=== PATIENT | female | born 1950 | race Caucasian/White ===

== ENCOUNTER → 2018-03-09 08:37 | Outpatient (CLI) | payer MEDICARE, SELFPAY ==
[2018-03-09 10:41] LABS: Hemoglobin A1c 7.8 % (4.2-6.3)
== END ==
PROVIDERS: Family Provider Internal Medicine; PCP Internal Medicine; Visit Provider Internal Medicine
DX: E11.65 Type 2 diabetes mellitus with hyperglycemia (principal)
CPT/HCPCS: 36415; 83036

== ENCOUNTER → 2018-06-12 08:41 | Outpatient (CLI) | payer MEDICARE, SELFPAY ==
[2018-06-12 11:16] LABS: Hemoglobin A1c 7.6 % (4.2-6.3)
[2018-06-12 11:31] LABS: AST(SGOT) 21 U/L (15-37); Alanine Aminotransfer ALT/SGPT 25 U/L (13-56); Albumin, Serum 3.7 g/dL (3.2-5.0); Alkaline Phosphatase 58 U/L (45-117); Bilirubin, Direct 0.11 mg/dL (0.00-0.30); Cholesterol 110 mg/dL (200); Globulin 4.2 g/dL (2.2-4.2); High Density Lipoprotein 42 mg/dL; Protein, Total 7.9 g/dL (6.4-8.2); Triglycerides 143 mg/dL; Very Low Density Lipoprotein 29 mg/dL (5-40)
== END ==
PROVIDERS: Family Provider Internal Medicine; PCP Internal Medicine; Visit Provider Nurse Practitioner Family
DX: E78.5 Hyperlipidemia, unspecified (principal); Z79.899 Other long term (current) drug therapy
CPT/HCPCS: 36415; 80061; 80076; 83036

== ENCOUNTER → 2018-11-22 13:33 | Outpatient (CLI) | payer OTHER, MEDICARE, SELFPAY ==
[2018-06-25 10:29] VITALS: BMI 35.6
--- NOTE | 2018-11-22 13:40 | RAD_ITS ---
STUDY: X-RAY - LEFT FOOT CLINICAL: Female, 68 years old. Pain and swelling TECHNIQUE: 3 view(s) of the foot. COMPARISON: None. FINDINGS: Normal talus and tarsal bones. Calcaneal spurs Normal visualized subtalar, talonavicular, calcaneocuboid, tarsal and tarsometatarsal articulations. Normal metatarsi. Normal metatarsophalangeal joint of the great toe. Normal tibial and fibular sesamoid bones. Normal interphalangeal joint of the great toe. Normal phalanges of the great toe. 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 Other joint spaces fairly well preserved. Normal interphalangeal joints and phalanges of the lesser toes. The soft tissue structures are unremarkable. 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
--- OUTSIDE RECORDS SUMMARY | 2019-01-27 08:15 | XMS RPT_ITS ---
:1950 Author Organization OHIP Care Team Providers Name Role Phone AIDEE GARCIARA Attending Unavailable GANTA, MARGARET Referring Unavailable GANTA, MARGARET Referring Unavailable GANTA, MARGARET Referring Unavailable GANTA, MARGARET Referring Unavailable PUNEET ARMANDO (ARLENE) Attending Unavailable GANTA, MARGARET Referring Unavailable GANTA, MARGARET Referring Unavailable GANTA, MARGARET Attending Unavailable Tarik Peterson Attending Unavailable Tarik Peterson Referring Unavailable Ganta, Margaret Primary Care Unavailable Ganta, Margaret Attending Unavailable Ganta, Margaret Referring Unavailable Ganta, Margaret Primary Care Unavailable Anna Lemons H Attending Unavailable Roof, Anna Dominguez Referring Unavailable [facility] Unavailable Puneet Armando Attending Unavailable Gan, Margaret Primary Care Unavailable Roof, Anna Dominguez Attending Unavailable Jaiden, Margaret Referring Unavailable [facility] Primary [facility] Unavailable PROBLEMS PROBLEMS DATE TYPE CONDITION / CODE ATTENDING STATUS SOURCE 08/20/2018 Active Type 2 diabetes NA Active [facility] mellitus with [facility] [place] hyperglycemia / Repository E11.65(ICD-10) 05/02/2018 Active Unknown / NA Active [facility] UNK(Unknown) [facility] [place] Repository 03/29/2018 Active Encounter for NA Active [facility] screening mammogram [facility] [place] for malignant Repository neoplasm of breast / Z12.31(ICD-10) PROCEDURES PROCEDURES No Procedure Records FoundRESULTS RESULTS FOOT MIN 3 VIEWS Observed: 11/22/2018 Status: F Source: [place] 1:40 PM [facility] [place] [facility] Imaging Services [address] [place] [address] Foot min 3 Views MR#: [id number] Acct: [id number] Name: ZARINA LEBRON Rep #: [id number] : 1950 F 68 From: Brandyn Davenport MD PCP: Margaret Garcia MD Status: REG CLI Study: Foot min 3 Views Date of Exam: 11/22/18 Exam# [id number] Ordering Dr: Onur Peterson MD STUDY: X-RAY - LEFT FOOT CLINICAL: Female, 68 years old. Pain and swelling TECHNIQUE: 3 view(s) of the foot. COMPARISON: None. FINDINGS: Normal talus and tarsal bones. Calcaneal spurs Normal visualized subtalar, talonavicular, calcaneocuboid, tarsal and tarsometatarsal articulations. Normal metatarsi. Normal metatarsophalangeal joint of the great toe. Normal tibial and fibular sesamoid bones. Normal interphalangeal joint of the great toe. Normal phalanges of the great toe. 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 Other joint spaces fairly well preserved. Normal interphalangeal joints and phalanges of the lesser toes. The soft tissue structures are unremarkable. 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 CC: Margaret Garcia MD; Tarik Peterson MD Gum Mixer: Signed PROGRESS Observed: 09/14/2018 Status: COMPLETED Source: [place] 10:30 AM [facility] [place] REPOSITORY O ID: [id number] Author: Margaret Garcia Service: (none) Author Type: Physician Type: Progress Notes Filed: 09/14/2018 1:09 PM Note Text: Reason for Visit Patient presents with: Established Patient: 3 month follow up-diabetes Zarina Lebron is a 68 year old female who presents here today for Above Complaints.. Health Maintenance PAP EVERY 3 YEARS (65-80 YEARS OLD) SERUM CREATININE URINE ALBUMIN:CREATININE RATIO LDL CHOLESTEROL HPI DIABETES MELLITUS: Ms. Lebron was last seen on. Since our last visit she denies excessive thirst or increased frequency of urination, chest pain or dyspnea , numbness, tingling or pain in extremities, new or unusual visual symptoms, low sugar/hypoglycemic reactions, weight loss/gain, lightheadedness/dizziness, bowel changes/loose stools and... No symptoms of low sugars Follows a diabetic diet most of the time. She is compliant with medication(s) and is tolerating med(s) without any side effects. She is not checking her glucose...Patient's last HgA1C was Hemoglobin A1C (%) Date Value 08/20/2018 7.6 03/09/2018 7.8 09/08/2017 Test sent to [facility]. ) She is up to date with the eye exam HTN: Ms. Lebron indicates that she is feeling well and denies any symptoms referable to elevated blood pressure. Specifically denies headache, chest pain, palpitations, dyspnea and peripheral edema. Patient denies any side effects of her medication(s) and is compliant with their regimen. She watches her diet for sodium, low fat and low cholesterol most of the time. Last 3 Encounter BP Readings: Date: BP: 09/14/2018 124/60 06/15/2018 128/70 03/14/2018 138/56 Lipids are normal, reviewed test results with patient Who takes medications regularly and has no side effects. Has some micro albuminemia but is already on the cozaar, to continue the same. She has not gained any weight , is exercising some bit. No problem-specific Assessment AND Plan notes found for this encounter. PAST MEDICAL HISTORY Diagnosis Date - Anemia, unspecified - Carpal tunnel syndrome 07/02/2009 - Diverticulosis of colon (without mention of hemorrhage) - Hypertension - Inferior CO (HCC) 08/01/2010 01/13/[address] Ruddy Dejesus- routine f/u's and reconsideration of bypass. - Internal hemorrhoids without mention of complication - Localized osteoarthrosis not specified whether primary or secondary, unspecified site - Myocardial infarction (HCC) 09/19/2009 per patient - Polyneuropathy in diabetes(357.2) - Trigger finger 07/17/2009 - Type II or unspecified type diabetes mellitus without mention of complication, not stated as uncontrolled - Vitamin D deficiency 12/28/2011 PAST SURGICAL HISTORY Procedure Laterality Date - APPENDECTOMY - COLONOSCOP W/ OR W/O [facility] SPEC 09/26/05 Colonoscopy - COLONOSCOP W/ OR W/O [facility] SPEC 11/23/2015 Colonoscopy - HAND LEFT OP SURGERY 07/02/2009 - LIGATE FALLOPIAN TUBE Tubal ligation - PAST SURGICAL HISTORY OF 08/2006 laser surgery left eye - REMOVAL GALLBLADDER FAMILY HISTORY Problem Relation Age of Onset - Cancer Father lung cancer - other (glaucoma) Brother - Diabetes Brother Social History Substance Use Topics - Smoking status: Never Smoker - Smokeless tobacco: Never Used - Alcohol use 1.0 oz/week Comment: rarely Past medical history, appointments, medications, allergies reviewed. Pertinent Lab/Diagnostic Studies are reviewed and discussed today Current Outpatient Prescriptions: - atorvastatin (LIPITOR) 40 mg tablet - glimepiride (AMARYL) 4 mg tablet - metoprolol tartrate, short acting, (LOPRESSOR) 50 mg tablet - metFORMIN (GLUCOPHAGE) 500 mg tablet - Lancets (ACCU-CHEK MULTICLIX LANCET) lancets - nitroglycerin sublingual (NITROQUICK) 0.4 mg SL tablet - oxybutynin ER (DITROPAN XL) 10 mg 24 hr tablet - dulaglutide (TRULICITY) 0.75 mg/0.5 mL pnij - clopidogrel (PLAVIX) 75 mg tablet - losartan (COZAAR) 25 mg tablet - acetaminophen (TYLENOL) 325 mg tablet - Lysine 500 mg tab - biotin 5 mg tab - Lactobacillus acidophilus (BACID) cap - magnesium oxide (MAG-OX) 400 mg tablet - Insulin Severy, Disposable, (BD ULTRA-FINE ANTONINO PEN NEEDLES) 32 gauge x 5/32 ndle - aspirin, enteric coated (ASPIRIN, ENTERIC COATED) 81 mg EC tablet - Eudgzmrwznm-Odzbrwdto-Xnk C-Mn (GLUCOSAMINE-CHONDROITIN COMPLX) cap - vitamin b complex (B COMPLETE) Tab - blood sugar diagnostic (ACCU-CHEK FRANCISCO J) Misc test strip - OMEGA-3 FATTY ACIDS CAP - COENZYME Q10 200 MG CAP - THERAPEUTIC MULTIVITAMIN ORAL TAB - VITAMIN C 500 MG ORAL TAB Review of Systems CONSTITUTIONAL: No fevers, chills night sweats, unintended weight loss CARDIOVASCULAR: No chest pain, dyspnea, palpitations, orthopnea, PND, ankle edema. PULM: No dyspnea, unexplained cough. GI: No dysphagia/odynophagia, problematic reflux, constipation, diarrhea, changes in stool habits, hematochezia, melena. : No new urinary complaints, including dysuria, gross hematuria or pyuria. NEURO: No new balance problems, peripheral weakness/paresthesias or numbness of concern. Physical Exam BP 124/60 (BP Site: Left Arm, BP Position: Sitting, BP Cuff Size: Large Adult) Pulse (!) 53 Resp 14 Ht 144.8 cm (4' 9) Wt 76.2 kg (168 lb) SpO2 100% BMI 36.35 kg/m? General appearance: Well appearing, alert, in no acute distress, well nourished. Skin: Skin color, texture, turgor normal, no suspicious rashes or lesions Head: Normocephalic, no masses, lesions, tenderness or abnormalities Eyes: Anicteric sclera. Pupils are equally round and reactive to light. Extraocular movements are intact. Lungs: Lungs clear to auscultation. No wheezing, rhonchi, rales Heart: RRR without murmur, gallop, or rubs. Extremities: No deformities, edema, skin discoloration, clubbing or cyanosis. Good capillary refill. ASSESSMENT/PLAN: 1. Diabetes mellitus type 2, uncontrolled, without complications ([facility]) - ICD9: 250.02, ICD10: E11.65 (primary diagnosis) Controlled. - Continue current medications - LANCETS - EMPAGLIFLOZIN 10 MG TABLET 2. Pure hypercholesterolemia - ICD9: 272.0, ICD10: E78.00 - good control - Continue current medication. 3. Coronary artery disease involving telida coronary artery of telida heart without angina pectoris - ICD9: 414.01, ICD10: I25.10 Stable no chest pain or sob 4. CKD (chronic kidney disease) stage 3, GFR 30-59 ml/min ([facility]) - ICD9: 585.3, ICD10: N18.3 - ALBUMIN/CREAT RATIO RND UR MARGARET GARCIA MD CNOV Observed: 09/14/2018 Status: COMPLETED Source: [place] 9:40 AM [facility] REPOSITORY Office Visit (INTMWS) ZARINA LEBRON ([id number]) 1950 F Date Time Provider Department 09/14/18 9:40 AM MARGARET GARCIA IN[facility] During your visit today, we recorded the following information about you: Pulse Respiration Blood pressure Weight 53/minute 14/minute 124/60 76.2 kg Height 1.448 m MARGARET GARCIA MD 09/14/2018 1:09 PM Signed Reason for Visit Patient presents with: Established Patient: 3 month follow up-diabetes Zarina Lebron is a 68 year old female who presents here today for Above Complaints.. Health Maintenance PAP EVERY 3 YEARS (65-80 YEARS OLD) SERUM CREATININE URINE ALBUMIN:CREATININE RATIO LDL CHOLESTEROL HPI DIABETES MELLITUS: Ms. Lebron was last seen on. Since our last visit she denies excessive thirst or increased frequency of urination, chest pain or dyspnea , numbness, tingling or pain in extremities, new or unusual visual symptoms, low sugar/hypoglycemic reactions, weight loss/gain, lightheadedness/dizziness, bowel changes/loose stools and... No symptoms of low sugars Follows a diabetic diet most of the time. She is compliant with medication(s) and is tolerating med(s) without any side effects. She is not checking her glucose...Patient's last HgA1C was Hemoglobin A1C (%) Date Value 08/20/2018 7.6 03/09/2018 7.8 09/08/2017 Test sent to [facility]. ) She is up to date with the eye exam HTN: Ms. Lebron indicates that she is feeling well and denies any symptoms referable to elevated blood pressure. Specifically denies headache, chest pain, palpitations, dyspnea and peripheral edema. Patient denies any side effects of her medication(s) and is compliant with their regimen. She watches her diet for sodium, low fat and low cholesterol most of the time. Last 3 Encounter BP Readings: Date: BP: 09/14/2018 124/60 06/15/2018 128/70 03/14/2018 138/56 Lipids are normal, reviewed test results with patient Who takes medications regularly and has no side effects. Has some micro albuminemia but is already on the cozaar, to continue the same. She has not gained any weight , is exercising some bit. No problem-specific Assessment AND Plan notes found for this encounter. PAST MEDICAL HISTORY Diagnosis Date - Anemia, unspecified - Carpal tunnel syndrome 07/02/2009 - Diverticulosis of colon (without mention of hemorrhage) - Hypertension - Inferior CO (HCC) 08/01/2010 01/13/[address] Ruddy Dejesus- routine f/u's and reconsideration of bypass. - Internal hemorrhoids without mention of complication - Localized osteoarthrosis not specified whether primary or secondary, unspecified site - Myocardial infarction (HCC) 09/19/2009 per patient - Polyneuropathy in diabetes(357.2) - Trigger finger 07/17/2009 - Type II or unspecified type diabetes mellitus without mention of complication, not stated as uncontrolled - Vitamin D deficiency 12/28/2011 PAST SURGICAL HISTORY Procedure Laterality Date - APPENDECTOMY - COLONOSCOP W/ OR W/O [facility] SPEC 09/26/05 Colonoscopy - COLONOSCOP W/ OR W/O [facility] SPEC 11/23/2015 Colonoscopy - HAND LEFT OP SURGERY 07/02/2009 - LIGATE FALLOPIAN TUBE Tubal ligation - PAST SURGICAL HISTORY OF 08/2006 laser surgery left eye - REMOVAL GALLBLADDER FAMILY HISTORY Problem Relation Age of Onset - Cancer Father lung cancer - other (glaucoma) Brother - Diabetes Brother Social History Substance Use Topics - Smoking status: Never Smoker - Smokeless tobacco: Never Used - Alcohol use 1.0 oz/week Comment: rarely Past medical history, appointments, medications, allergies reviewed. Pertinent Lab/Diagnostic Studies are reviewed and discussed today Current Outpatient Prescriptions: - atorvastatin (LIPITOR) 40 mg tablet - glimepiride (AMARYL) 4 mg tablet - metoprolol tartrate, short acting, (LOPRESSOR) 50 mg tablet - metFORMIN (GLUCOPHAGE) 500 mg tablet - Lancets (ACCU-CHEK MULTICLIX LANCET) lancets - nitroglycerin sublingual (NITROQUICK) 0.4 mg SL tablet - oxybutynin ER (DITROPAN XL) 10 mg 24 hr tablet - dulaglutide (TRULICITY) 0.75 mg/0.5 mL pnij - clopidogrel (PLAVIX) 75 mg tablet - losartan (COZAAR) 25 mg tablet - acetaminophen (TYLENOL) 325 mg tablet - Lysine 500 mg tab - biotin 5 mg tab - Lactobacillus acidophilus (BACID) cap - magnesium oxide (MAG-OX) 400 mg tablet - Insulin Severy, Disposable, (BD ULTRA-FINE ANTONINO PEN NEEDLES) 32 gauge x 5/32 ndle - aspirin, enteric coated (ASPIRIN, ENTERIC COATED) 81 mg EC tablet - Lbowsemjasw-Hmbcppkud-Jts C-Mn (GLUCOSAMINE-CHONDROITIN COMPLX) cap - vitamin b complex (B COMPLETE) Tab - blood sugar diagnostic (ACCU-CHEK FRANCISCO J) Misc test strip - OMEGA-3 FATTY ACIDS CAP - COENZYME Q10 200 MG CAP - THERAPEUTIC MULTIVITAMIN ORAL TAB - VITAMIN C 500 MG ORAL TAB Review of Systems CONSTITUTIONAL: No fevers, chills night sweats, unintended weight loss CARDIOVASCULAR: No chest pain, dyspnea, palpitations, orthopnea, PND, ankle edema. PULM: No dyspnea, unexplained cough. GI: No dysphagia/odynophagia, problematic reflux, constipation, diarrhea, changes in stool habits, hematochezia, melena. : No new urinary complaints, including dysuria, gross hematuria or pyuria. NEURO: No new balance problems, peripheral weakness/paresthesias or numbness of concern. Physical Exam BP 124/60 (BP Site: Left Arm, BP Position: Sitting, BP Cuff Size: Large Adult) Pulse (!) 53 Resp 14 Ht 144.8 cm (4' 9) Wt 76.2 kg (168 lb) SpO2 100% BMI 36.35 kg/m? General appearance: Well appearing, alert, in no acute distress, well nourished. Skin: Skin color, texture, turgor normal, no suspicious rashes or lesions Head: Normocephalic, no masses, lesions, tenderness or abnormalities Eyes: Anicteric sclera. Pupils are equally round and reactive to light. Extraocular movements are intact. Lungs: Lungs clear to auscultation. No wheezing, rhonchi, rales Heart: RRR without murmur, gallop, or rubs. Extremities: No deformities, edema, skin discoloration, clubbing or cyanosis. Good capillary refill. ASSESSMENT/PLAN: 1. Diabetes mellitus type 2, uncontrolled, without complications ([facility]) - ICD9: 250.02, ICD10: E11.65 (primary diagnosis) Controlled. - Continue current medications - LANCETS - EMPAGLIFLOZIN 10 MG TABLET 2. Pure hypercholesterolemia - ICD9: 272.0, ICD10: E78.00 - good control - Continue current medication. 3. Coronary artery disease involving telida coronary artery of telida heart without angina pectoris - ICD9: 414.01, ICD10: I25.10 Stable no chest pain or sob 4. CKD (chronic kidney disease) stage 3, GFR 30-59 ml/min ([facility]) - ICD9: 585.3, ICD10: N18.3 - ALBUMIN/CREAT RATIO RND UR MARGARET GARCIA MD Referring Provider: SELF [200] Allergies As of Date: 09/14/2018 Noted Allergy Reaction QUININE SULFATE 07/08/2005 5 - Intolerance Comments: thrombocytopenia CIPRO (CIPROFLOXACIN) 07/08/2005 5 - Intolerance Comments: swelling EVISTA (RALOXIFENE HCL) 04/15/2008 5 - Intolerance Comments: leg cramps LISINOPRIL 11/04/2009 3 - Cough ALTACE (RAMIPRIL) 07/08/2005 3 - Cough Date Reviewed: 09/14/2018 Reviewed by: Nina Rojas LPN - Fully Assessed Reason for Visit: Established Patient [175] Cmt: 3 month follow up-diabetes Primary Visit Diagnosis:Diabetes mellitus type 2, uncontrolled, without complications (HCC) [E11.65] Other Visit Diagnoses:Pure hypercholesterolemia [E78.00] Coronary artery disease involving telida coronary artery of telida heart without angina pectoris [I25.10] CKD (chronic kidney disease) stage 3, GFR 30-59 ml/min (HCC) [N18.3] Order(s):Lancets (ACCU-CHEK MULTICLIX LANCET) lancetsTest blood sugar once daily.Disp: 50 EachRfl: 11 empagliflozin (JARDIANCE) 10 mg tabletTake 1 tablet by mouth daily with breakfast.Disp: 30 tabletRfl: 2 ALBUMIN/CREAT RATIO RND UR [SQUACR] Order #: [id number] FUTURE HGB A1C [QEIWS5F] Order #: [id number] FUTURE Prescriptions as of 09/14/2018 Sig: LANCETS Test blood sugar once daily. EMPAGLIFLOZIN 10 MG TABLET Take 1 tablet by mouth daily * ATORVASTATIN 40 MG TABLET TAKE 1 TABLET EVERY DAY GLIMEPIRIDE 4 MG TABLET TAKE 1 AND 1/2 TABLETS EVERY * METOPROLOL TARTRATE 50 MG TAB* TAKE 1 TABLET TWICE DAILY METFORMIN 500 MG TABLET TAKE 2 TABLETS TWICE DAILY NITROGLYCERIN 0.4 MG SUBLINGU* Dissolve 1 tablet under the t* OXYBUTYNIN CHLORIDE ER 10 MG * TAKE 1 TABLET EVERY DAY CLOPIDOGREL 75 MG TABLET Take 1 tablet by mouth once d* LOSARTAN 25 MG TABLET Take 1 tablet by mouth once d* ACETAMINOPHEN 325 MG TABLET Take 2 tablets by mouth every* LYSINE 500 MG TABLET Take 1 tablet by mouth once d* BIOTIN 5 MG TABLET Take 1 tablet by mouth once d* LACTOBACILLUS ACIDOPHILUS CAP* Take 2 capsules by mouth once* MAGNESIUM OXIDE 400 MG (241.3* Take 1 tablet by mouth once d* PEN NEEDLE, DIABETIC 32 GAUGE* Use once daily with Victoza ASPIRIN 81 MG TABLET,DELAYED * Take 81 mg by mouth once zuhair* CNFRBNUXMML-GHJRLKRBK-BUY C-M* Take by mouth. * VITAMIN B COMPLEX TABLET Take 1 tablet by mouth once d* * BLOOD SUGAR DIAGNOSTIC STRIPS TEST BLOOD SUGARS ONCE DAILY * OMEGA-3 FATTY ACIDS CAPSULE Take one(1) tablet one (1) ti* * COENZYME Q10 200 MG CAPSULE Take one(1) tablet daily. * THERAPEUTIC MULTIVITAMIN TABL* Take one(1) tablet daily. * VITAMIN C 500 MG TABLET Take one(1) tablet daily. Medication notes this encounter DULAGLUTIDE 0.75 MG/0.5 ML SUBCUTANEOUS PEN INJECTOR >> Nina Rojas LPN 09/14/2018 10:03 AM >> NINA ROJAS LPN MonSep 14, 2018 10:03 AM not taking too expensive Problem List As Of Date 09/14/2018 Noted Resolved Diabetic polyneuropathy (HCC) [E11.42] LOC [place] NOS-UNSPEC [M19.90] Diabetes mellitus type 2, uncontrolled, without*INVALID FOR* More... Dupuytren's Disease [M72.0] INVALID FOR* CAD (Coronary Artery Disease) [I25.10] INVALID FOR* More... Pure Hypercholesterolemia [E78.00] INVALID FOR* Hypertension [I10] INVALID FOR* More... More... More... Non-proliferative diabetic retinopathy, mild, b*INVALID FOR* More... Osteopenia [M85.80] INVALID FOR* More... Diabetes mellitus with neuropathy (HCC) [E11.40]INVALID FOR*06/11/2014 CKD (chronic kidney disease) stage 3, GFR 30-59*INVALID FOR* More... PVD (peripheral vascular disease) ([facility]) [I73.9] INVALID FOR* Prescriptions ordered this encounter Disp Refills Start End LANCETS 50 E* 11 09/14/2018 Sig: Test blood sugar once daily. EMPAGLIFLOZIN 10 MG TABLET 30 t* 2 09/14/2018 Route: ORAL Sig: Take 1 tablet by mouth daily with breakfast. Medications Discontinued During This Encounter dulaglutide (TRULICITY) 0.75 mg/0.5 * 4 Pen 0 03/14/2018 09/14/2018 Route: SUBCUTANEOUS Sig: Inject 1 Dose subcutaneously once each week. Inject dose once per week. Discard Pen After Disc: Reason for discontinue is not on file. Lancets (ACCU-CHEK MULTICLIX LANCET)* 50 E* 11 06/15/2018 09/14/2018 Class: [employer] Sig: Test blood sugar once daily. Disc: Reason for discontinue is not on file. Encounter Status:Closed by MARGARET GARCIA MD on 09/14/18 ARLENETOUTREACH Observed: 08/28/2018 Status: COMPLETED Source: [place] 12:00 AM [facility] REPOSITORY Patient Outreach (INTMWH) ZARINA LEBRON ([id number]) 1950 F Date Time Provider Department 08/28/18 [facility]ARCIA [facility] During your visit today, we recorded the following information about you: Allergies As of Date: 08/28/2018 Noted Allergy Reaction QUININE SULFATE 07/08/2005 5 - Intolerance Comments: thrombocytopenia CIPRO (CIPROFLOXACIN) 07/08/2005 5 - Intolerance Comments: swelling EVISTA (RALOXIFENE HCL) 04/15/2008 5 - Intolerance Comments: leg cramps LISINOPRIL 11/04/2009 3 - Cough ALTACE (RAMIPRIL) 07/08/2005 3 - Cough Date Reviewed: 06/15/2018 Reviewed by: Precious Oquendo Ma - Fully Assessed Visit Diagnosis:Medication management [Z79.899] Order(s):BASIC METABOLIC PNL [SQBMP] Order #: [id number] FUTURE ALBUMIN/CREAT RATIO RND UR [SQUACR] Order #: [id number] FUTURE LIPID PANEL BASIC [SQLIPB] Order #: [id number] FUTURE Prescriptions as of 08/28/2018 Sig: ATORVASTATIN 40 MG TABLET TAKE 1 TABLET EVERY DAY GLIMEPIRIDE 4 MG TABLET TAKE 1 AND 1/2 TABLETS EVERY * METOPROLOL TARTRATE 50 MG TAB* TAKE 1 TABLET TWICE DAILY METFORMIN 500 MG TABLET TAKE 2 TABLETS TWICE DAILY NITROGLYCERIN 0.4 MG SUBLINGU* Dissolve 1 tablet under the t* X LANCETS Test blood sugar once daily. OXYBUTYNIN CHLORIDE ER 10 MG * TAKE 1 TABLET EVERY DAY X DULAGLUTIDE 0.75 MG/0.5 ML CHURCHILL* Inject 1 Dose subcutaneously * CLOPIDOGREL 75 MG TABLET Take 1 tablet by mouth once d* LOSARTAN 25 MG TABLET Take 1 tablet by mouth once d* ACETAMINOPHEN 325 MG TABLET Take 2 tablets by mouth every* LYSINE 500 MG TABLET Take 1 tablet by mouth once d* BIOTIN 5 MG TABLET Take 1 tablet by mouth once d* LACTOBACILLUS ACIDOPHILUS CAP* Take 2 capsules by mouth once* MAGNESIUM OXIDE 400 MG (241.3* Take 1 tablet by mouth once d* PEN NEEDLE, DIABETIC 32 GAUGE* Use once daily with Victoza ASPIRIN 81 MG TABLET,DELAYED * Take 81 mg by mouth once zuhair* [id number]-QDQYRWLTM-DYN C-M* Take by mouth. * VITAMIN B COMPLEX TABLET Take 1 tablet by mouth once d* * BLOOD SUGAR DIAGNOSTIC STRIPS TEST BLOOD SUGARS ONCE DAILY * OMEGA-3 FATTY ACIDS CAPSULE Take one(1) tablet one (1) ti* * COENZYME Q10 200 MG CAPSULE Take one(1) tablet daily. * THERAPEUTIC MULTIVITAMIN TABL* Take one(1) tablet daily. * VITAMIN C 500 MG TABLET Take one(1) tablet daily. Problem List As Of Date 08/28/2018 Noted Resolved Diabetic polyneuropathy (HCC) [E11.42] LOC OSTEOARTH NOS-UNSPEC [M19.90] Diabetes mellitus type 2, uncontrolled, without*INVALID FOR* More... Dupuytren's Disease [M72.0] INVALID FOR* CAD (Coronary Artery Disease) [I25.10] INVALID FOR* More... Pure Hypercholesterolemia [E78.00] INVALID FOR* Hypertension [I10] INVALID FOR* More... More... More... Non-proliferative diabetic retinopathy, mild, b*INVALID FOR* More... Osteopenia [M85.80] INVALID FOR* More... Diabetes mellitus with neuropathy (HCC) [E11.40]INVALID FOR*06/11/2014 CKD (chronic kidney disease) stage 3, GFR 30-59*INVALID FOR* More... PVD (peripheral vascular disease) ([facility]) [I73.9] INVALID FOR* Encounter Status:Closed by PRECIOUS LUGO on 09/28/18 HEMOGLOBIN A1C Collected: 08/20/2018 Status: F Source: [place] 9:07 AM [facility] RE[facility] TYPE CODE TESTS RESULT OUT OF REFERENCE UNITS RANGE LAB HGBA1C 4.3-5.6 % High Hemoglobin A1c 7.6 LAB HBA0 mg/dL Est. Average Glucose 171 Result Comment: eAG: (Estimated average glucose) is a calculated value from HgbA1c and is sales representative public utilities of the average blood glucose level in the last 2-3 month period. Performed By: #### HBA1C #### [facility] [address] [place], [place] [address] CARDIOLOGY VISIT Observed: 06/26/2018 Status: F Source: [place] REPORT 5:32 PM [facility] [place] [address] [place] [address] OFFICE VISIT Date of Service: 06/25/18 MR#: [id number] Acct: [id number] Name: ZARINA LEBRON Rep #: [id number] : 1950 Provider: ALO Lemons Age/Sex: 68/F Location: [facility] Status: Signed HPI HPI Details: ZARINA LEBRON, is a 68 F who presents to the office today for a cardiovascular outpatient follow-up. She has a history of coronary artery disease with a normal left main originating from the RCA, status post PCI of RCA 2 in September 2009 and mid RCA in February 2011, hypertension and hyperlipidemia. Pt. denies chest, arm, jaw, or neck discomfort. She states prior to PCI she had upper back pain between shoulder blades and SOB. Her exercise tolerance is stable via APX 3-5 days a week. Pt. denies symptoms of CHF, palpitations, lightheadedness, dizziness, near syncope, or syncopal episodes. Pt. denies edema or claudication issues. Pt. denies orthopnea, PND, fever, chills, blood in urine, blood in stool, myalgia, or unexplainable fatigue. She states sleeping in a recliner d/t muscle cramps and back pain. She states suffering a fall in September 2017 after being tripped by her granddaughter. She underwent a x-ray of her chest that was negative. Her pain slowly resolved. Intake Vital Signs06/25/18 Height 4 ft 9 in 06/25/18 Weight: 165 lb 06/25/18 Body Mass Index (BMI) 35.6 06/25/18 Blood Pressure 132/60 06/25/18 Blood Pressure Location Lt brachial Intake Visit Reasons: 6 M FU Vocational Nurse Required: No Accompanied by: none Is patient in pain?: No Allergies ciprofloxacin [From Cipro] Allergy (Verified 06/25/18 10:30) Swelling ciprofloxacin HCl [From Cipro] Allergy (Verified 06/25/18 10:30) Swelling ramipril [From Altace] Adverse Reaction (Verified 06/25/18 10:30) Other Medications Atorvastatin Calcium [Lipitor] 40 mg PO QHS 07/12/15 [History Confirmed 06/25/18] Clopidogrel Bisulfate [Plavix] 75 mg PO DAILY 07/12/15 [History Confirmed 06/25/18] Glimepiride [Amaryl] 4 mg PO DAILY 07/12/15 [History Confirmed 06/25/18] Metformin HCl [Glucophage] 1,000 mg PO BIDCM 07/12/15 [History Confirmed 06/25/18] Metoprolol Tartrate [Lopressor (Beta Eleni)] 50 mg PO BID 07/12/15 [History Confirmed 06/25/18] aspirin 81 mg tablet,delayed release 81 mg PO QDAY 06/25/18 [History Confirmed 06/25/18] coenzyme Q10 200 mg capsule 200 mg PO QDAY 06/25/18 [History Confirmed 06/25/18] losartan 25 mg tablet 25 mg PO QDAY 06/25/18 [History Confirmed 06/25/18] nitroglycerin 0.4 mg sublingual tablet 0.4 mg SUBLINGUAL Q5- 15M PRN #25 tab 06/25/18 [Rx Confirmed 06/25/18] omega-3 fatty acids 1,000 mg capsule 1,000 mg PO QDAY 06/25/18 [History Confirmed 06/25/18] oxybutynin chloride ER 10 mg tablet,extended release 24 hr 10 mg PO QDAY 06/25/18 [History Confirmed 06/25/18] vitamin B complex tablet 1 tab PO QDAY 06/25/18 [History Confirmed 06/25/18] PFSH Social History Smoking Status: Never smoker ROS Const Const: Negative for fatigue, weakness, body ache, fever(s) or chills ENT ENT: Negative for dizziness Cardio Chest Pain: No Palpitations: No Edema: None Muscle aches with walking: None Resp Respiratory: Negative for SOB with activity, SOB at rest, SOB orthopnea\SOB lying down or paroxysmal nocturnal dyspnea GI GI: Negative nausea, black,tarry stools, bright, red blood in stools or vomiting blood/hematemesis : Negative for hematuria or frequent nighttime urination/ nocturia Musc Musc: Negative for muscle aches/ myalgia Skin Skin: Negative non-healing lesions or rash Neuro Neuro: Negative for weakness, dizziness, lightheadedness, near syncope, syncope or orthostatic symptoms Endo Endo: Negative for fatigue Allergy Allergy/Immunology: Negative for rash Cardiology Exam Const Appearance: cooperative, healthy appearing, comfortable and no acute distress Nutritional Appearance: well nourished and obese Orientation: alert, awake and oriented x3 Head Head: normal to inspection Ears: hearing grossly normal bilaterally Nose: external nose normal Face and Sinus: face symmetric Mouth: oral mucosae normal Eyes General: appearance normal, both eyes and all related structures Eyelids: eyelids normal EOM: EOM intact bilaterally Neck Neck: no JVD and normal visual inspection Carotids: normal carotid upstroke Chest Chest inspection: normal inspection of the chest and normal respiratory effort; negative cough Auscultation: Bilateral: Clear to Auscultation Cardio Rate: regular rate Rhythm: regular rhythm Heart sounds: S1 normal and S2 normal; negative rub, gallop or murmur GI GI: normal to inspection and obese Neuro General: alert, awake, oriented x3 and CN's II-XI intact bilaterally Skin Skin: no rashes or lesions noted Extremities Pulses: Normal: Right Posterior Tibial Pulse, Left Posterior Tibial Pulse, Right Radial Pulse, Left Radial Pulse Lower Extremity Edema: None: Bilateral Psych Psychological: normal affect Supplemental Info Echocardiogram from December 2015 showed normal LV size, estimated ejection fraction of 65%, diastolic dysfunction, and mild focal aortic valve calcification. Stress test from November 2013 was a normal pharmacologic myocardial perfusion stress test with a preserved ejection fraction of 75%. Assessment AND Plan 1. Atherosclerosis of telida coronary artery of telida heart without angina pectoris I25.10 S/P PCI to the RCA x2 in September 2009 and mid RCA in February 2011 Plan - MARY Beckett Her echocardiogram in December 2015 showed ejection fraction of 65%. Her stress test in April 2014 was a normal pharmacological myocardial perfusion stress test with a preserved ejection fraction. Patient denies any chest pain, arm pain, jaw pain, neck pain, shortness of breath, or fatigue suggestive of angina at this time. We will continue to monitor this. We will not make any medication regimen changes and will continue risk factor modification. 2. Essential hypertension I10 Plan - MARY Beckett Patient's blood pressure is well-controlled today in the office. We will continue to monitor this. We will not make any medication regimen changes. 3. Pure hypercholesterolemia E78.00; E78.0 Plan - MARY Beckett Lipid panel from June 2018 showed cholesterol: 110, HDL: 42, LDL: 39, and triglycerides: 143. She will continue the current statin medication and we will continue to monitor. Plan Detail Other Medications New: nitroglycerin until response; do not exceed 3 0.4 mg Sublingual Q5-15M PRN chest pain doses per episode Discontinued: sulfamethoxazole-trimethoprim 800-160 mg Discontinued Reason: Pt no long1 tab PO BID er taking Additional Comments - MARY Beckett Discussed the above patient with Dr. Cagle, he agrees with the plan of care. Thank you for allowing us to participate in the patients plan of care, if you have any questions please do not hesitate to call. This note was generated using a voice recognition system and there may be incorrect words, spelling or punctuation that were not noted when reviewing the office note prior to saving. 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) Coding Level of Care Code Off vis,est,level 3 Diagnoses Atherosclerosis of telida coronary artery of telida heart without angina pectoris I25.10 Essential hypertension I10 Hypertension type: essential hypertension Pure hypercholesterolemia E78.00; E78.0 Hyperlipidemia type: pure hypercholesterolemia Coding Level of Care Code Off vis,est,level 3 Diagnoses Atherosclerosis of telida coronary artery of telida heart without angina pectoris I25.10 Essential hypertension I10 Hypertension type: essential hypertension Pure hypercholesterolemia E78.00; E78.0 Hyperlipidemia type: pure hypercholesterolemia 06/26/18 0751 <Electronically signed by Anna HERNANDEZ> Date Anna HERNANDEZ 06/26/18 1732<Electronically signed by Tarik Cagle MD> Cosigner Signature: Date (if applicable) Tarik Cagle MD CC: Margaret Garcia MD PROGRESS Observed: 06/15/2018 Status: COMPLETED Source: [place] 10:04 AM [facility] [place] REPOSITORY [facility] ID: [id number] Author: Puneet Armando Service: (none) Author Type: Nurse Practitioner Type: Progress Notes Filed: 06/15/2018 12:45 PM Note Text: CC: Patient presents with: Recheck: 3 month diabetes follow up HPI Zarina eLbron is a 68 year old female who presents today for 3 month follow up diabetes. DIABETES MELLITUS: Ms. Lebron was last seen 3 months ago. Since our last visit she denies excessive thirst or increased frequency of urination, chest pain or dyspnea , numbness, tingling or pain in extremities, new or unusual visual symptoms, low sugar/hypoglycemic reactions, lightheadedness/dizziness and bowel changes/loose stools. Follows a diabetic diet most of the time. She is compliant with medication(s) however she has not started her Trulicity d/t cost. She reports monthly cost of $340/month. She reports checking her glucose on a infrequent to not at all basis schedule, as she never received lancets that were previously ordered. Down 5-6lbs since last visit and HgbA1C is improving. Patient's last HgA1C was Hemoglobin A1C (%) Date Value 03/09/2018 7.8 09/08/2017 Test sent to [facility]. 06/08/2017 7.7 05/17/2016 7.8 ) Last Ophthalmology exam was within the past 12 months. Upcoming appt in August HTN: Ms. Lebron indicates that she is feeling well and denies any symptoms referable to elevated blood pressure. Specifically denies headache, chest pain, palpitations, dyspnea and peripheral edema. Patient denies any side effects of her medication(s) and is compliant with their regimen. She does not check BP's generally. Zarina works out regularly 3-5x times per week with walking on treadmill, light weights and goes to [employer]. She watches her diet for sodium, low fat and low cholesterol most of the time. Last 3 Encounter BP Readings: Date: BP: 06/15/2018 128/70 03/14/2018 138/56 10/04/2017 131/78 Hyperlipidemia. Ms. Lebron reports doing well on current therapy of atorvastatin (Lipitor) 40 mg. Reports side effect(s) of leg cramps intermittently. On Co-Q 10 already and uses heating pads for relief. Her most recent lipid panels are: Cholesterol, Total (mg/dL) Date Value 09/08/2017 Test sent to [facility]. 06/19/2013 146 Cholesterol,Total (mg/dL) Date Value 09/08/2017 113 HDL Cholesterol (mg/dL) Date Value 09/08/2017 Test sent to [facility]. 06/19/2013 39 LDL Cholesterol Date Value 09/08/2017 Test sent to [facility]. mg/dL 09/08/2017 43 Triglyceride Date Value 09/08/2017 Test sent to [facility]. mg/dL 09/08/2017 124 REVIEW OF SYSTEMS General: no fevers, no chills, no night sweats, no recurrent infections, no change in appetite and no change in energy HEENT: no frequent or significant headaches, no changes in hearing, no visual changes, no nose bleeds, no sinus or nasal problems Respiratory: no cough, no wheezing, no shortness of breath, no hemoptysis Cardiovascular: no chest pain, no chest pressure and no palpitations. Occasional LLE edema Endocrine: no fatigue, no weight gain, no hair loss, no dry skin, no cold intolerance, no heat intolerance, no neck pain/pressure, no polyuria, no polyphagia and no polydipsia Neurologic: No headache, weakness, numbness, tingling, neck stiffness, tremor, vertigo, dizziness, memory loss, syncope. PAST MEDICAL HISTORY Diagnosis Date - Anemia, unspecified - Carpal tunnel syndrome 07/02/2009 - Diverticulosis of colon (without mention of hemorrhage) - Hypertension - Inferior CO (HCC) 08/01/2010 01/13/[address] Ruddy Dejesus- routine f/u's and reconsideration of bypass. - Internal hemorrhoids without mention of complication - Localized osteoarthrosis not specified whether primary or secondary, unspecified site - Myocardial infarction (HCC) 09/19/2009 per patient - Polyneuropathy in diabetes(357.2) - Trigger finger 07/17/2009 - Type II or unspecified type diabetes mellitus without mention of complication, not stated as uncontrolled - Vitamin D deficiency 12/28/2011 PAST SURGICAL HISTORY Procedure Laterality Date - APPENDECTOMY - COLONOSCOP W/ OR W/O BRS SPEC 09/26/05 Colonoscopy - COLONOSCOP W/ OR W/O BRS SPEC 11/23/2015 Colonoscopy - HAND LEFT OP SURGERY 07/02/2009 - LIGATE FALLOPIAN TUBE Tubal ligation - PAST SURGICAL HISTORY OF 08/2006 laser surgery left eye - REMOVAL GALLBLADDER ALLERGIES Quinine Sulfate; Cipro [Ciprofloxacin]; Evista [Raloxifene Hcl]; Lisinopril; Altace [Ramipril] MEDICATIONS oxybutynin ER (DITROPAN XL) 10 mg 24 hr tablet TAKE 1 TABLET EVERY DAY dulaglutide (TRULICITY) 0.75 mg/0.5 mL pnij Inject 1 Dose subcutaneously once each week. Inject dose once per week. Discard Pen After clopidogrel (PLAVIX) 75 mg tablet Take 1 tablet by mouth once daily. losartan (COZAAR) 25 mg tablet Take 1 tablet by mouth once daily. atorvastatin (LIPITOR) 40 mg tablet TAKE 1 TABLET EVERY DAY Lancets (ACCU-CHEK MULTICLIX LANCET) lancets Test blood sugar once daily. metoprolol tartrate, short acting, (LOPRESSOR) 50 mg tablet Take 1 tablet by mouth twice daily. metoprolol tartrate, short acting, (LOPRESSOR) 50 mg tablet TAKE 1 TABLET TWICE DAILY acetaminophen (TYLENOL) 325 mg tablet Take 2 tablets by mouth every 4 hours as needed for Pain. glimepiride (AMARYL) 4 mg tablet Take 2 tablets by mouth daily with breakfast. Lysine 500 mg tab Take 1 tablet by mouth once daily. biotin 5 mg tab Take 1 tablet by mouth once daily. Lactobacillus acidophilus (BACID) cap Take 2 capsules by mouth once daily. magnesium oxide (MAG-OX) 400 mg tablet Take 1 tablet by mouth once daily. Insulin Severy, Disposable, (BD ULTRA-FINE ANTONINO PEN NEEDLES) 32 gauge x 5/32 ndle Use once daily with Victoza metFORMIN (GLUCOPHAGE) 500 mg tablet TAKE 2 TABLETS TWICE DAILY aspirin, enteric coated (ASPIRIN, ENTERIC COATED) 81 mg EC tablet Take 81 mg by mouth once daily. Vgmqaozibtz-Ymdichngb-Cle C-Mn (GLUCOSAMINE-CHONDROITIN COMPLX) cap Take by mouth. vitamin b complex (B COMPLETE) Tab Take 1 tablet by mouth once daily. blood sugar diagnostic (ACCU-CHEK FRANCISCO J) Misc test strip TEST BLOOD SUGARS ONCE DAILY OMEGA-3 FATTY ACIDS CAP Take one(1) tablet one (1) times daily. COENZYME Q10 200 MG CAP Take one(1) tablet daily. THERAPEUTIC MULTIVITAMIN ORAL TAB Take one(1) tablet daily. VITAMIN C 500 MG ORAL TAB Take one(1) tablet daily. FAMILY HISTORY Problem Relation Age of Onset - Cancer Father lung cancer - glaucoma [OTHER] Brother - Diabetes Brother Social History Substance Use Topics - Smoking status: Never Smoker - Smokeless tobacco: Never Used - Alcohol use 1.0 oz/week Comment: rarely PHYSICAL EXAM BP 128/70 Pulse (!) 52 Temp 36.6 ?C (97.9 ?F) (Temporal Artery) Resp 16 Wt 74.4 kg (164 lb) SpO2 100% BMI 35.49 kg/m? General Appearance: well appearing, in no acute distress, alert Pysch: mood and affect broad and appropriate Skin: Skin color, texture, turgor normal for age; Head: normocephalic, atraumatic Eyes: conjunctiva pink and moist, no icterus, sclera white, non-injected Lungs: Lungs clear to auscultation. No wheezing, rhonchi, rales Heart: RRR without murmur, gallop, or rubs. No ectopy Bilateral Lower Extremities: No deformities, edema, skin discoloration, clubbing or cyanosis. Good capillary refill. , Pulses: 2+ BLOOD PRESSURE CONTROLLED due on 01/07/1966 INFLUENZA(1) due on 07/07/2018 STATIN MED ADHERENCE due on 07/07/2018 DIABETES MED ADHERENCE due on 07/07/2018 DILATED RETINAL EXAM due on 08/07/2018 URINE ALBUMIN:CREATININE RATIO due on 09/08/2018 LDL CHOLESTEROL due on 09/08/2018 SERUM CREATININE due on 09/08/2018 HBA1C due on 12/13/2018 DIABETIC FOOT EXAM due on 03/14/2019 ANNUAL PCP TEAM CHRONIC DISEASE VISIT due on 03/14/2019 MAMMOGRAM due on 03/29/2019 DTAP,TDAP,TD(3 - Tdap) due on 05/06/2025 COLORECTAL CANCER SCREENING,SEE MODIFIER due on 11/23/2025 BONE DENSITY Completed ADULT PREVNAR-13 Completed HEPATITIS C SCREENING Completed PNEUMOVAX AGE 65 AND OVER WITH 5YR LOOKBACK Completed ASSESSMENT/PLAN: 1. Uncontrolled type 2 diabetes mellitus without complication, without long-term current use of insulin (HCC) - ICD9: 250.02, ICD10: E11.65 (primary diagnosis) improved control - Continue current medications, diet/exercise and weight loss - Hold Trulicity as patient is unable to afford $340/month for medication and a1c is improving without - Check HgA1C in 3 months- patient gets labs done at [facility] - Blood glucose monitoring on a once a day schedule, fasting preferred. Patient to bring results to next appointment - Follow up in 3 months, sooner should any other issues arise. - HGB A1C 2. Essential hypertension - ICD9: 401.9, ICD10: I10 - good control - Continue current medication(s) - Encouraged dietary sodium restriction/DASH diet - Recommended regular aerobic exercise. - Recheck in 3 months, sooner should new symptoms or problems arise. - Goal of BP <130/80 - Recommended no refined sugar, low refined starch, healthy oil intake (olive oil), healthy protein (fish) along the lines of the Mediterranean diet. 3. Pure hypercholesterolemia - ICD9: 272.0, ICD10: E78.00 - good control - Continue current medication. - Encouraged following a low fat, low cholesterol diet. - Discussed the benefits of regular aerobic exercise and weight loss. - Follow up in 12 weeks. - Encouraged following a low carbohydrate, healthy oil intake diet. 4. Coronary artery disease involving telida coronary artery of telida heart without angina pectoris - ICD9: 414.01, ICD10: I25.10 Stable Continue current medications - Refill for Nitro given - Follow up in 3 months 5. CKD (chronic kidney disease) stage 3, GFR 30-59 ml/min (HCC) - ICD9: 585.3, ICD10: N18.3 - Stable based on most recent lab review - Follow up in 3 months 6. PVD (peripheral vascular disease) (HCC) - ICD9: 443.9, ICD10: I73.9 - Stable - Follow up in 3 months Puneet Armando APRN.BODY AND FRAME MAN Prescription instructions reviewed with patient as applicable. Potential red flag symptoms discussed with the patient. Reviewed appropriate action plan to take if red flag symptoms occur. Patient agreeable to treatment plan. CNOV Observed: 06/15/2018 Status: COMPLETED Source: [place] 10:00 AM [facility] REPOSITORY Office Visit (INTMWS) ZARINA LEBRON ([id number]) 1950 F Date Time Provider Department 06/15/18 10:00 AM PUNEET ARMANDO ([facility]) INTMWS During your visit today, we recorded the following information about you: Temperature Pulse Respiration Blood pressure 97.9 degrees 52/minute 16/minute 128/70 Weight 74.4 kg Puneet Armando APRN.CNP 06/15/2018 12:45 PM Signed CC: Patient presents with: Recheck: 3 month diabetes follow up HPI Zarina Lebron is a 68 year old female who presents today for 3 month follow up diabetes. DIABETES MELLITUS: Ms. Lebron was last seen 3 months ago. Since our last visit she denies excessive thirst or increased frequency of urination, chest pain or dyspnea , numbness, tingling or pain in extremities, new or unusual visual symptoms, low sugar/hypoglycemic reactions, lightheadedness/dizziness and bowel changes/loose stools. Follows a diabetic diet most of the time. She is compliant with medication(s) however she has not started her Trulicity d/t cost. She reports monthly cost of $340/month. She reports checking her glucose on a infrequent to not at all basis schedule, as she never received lancets that were previously ordered. Down 5-6lbs since last visit and HgbA1C is improving. Patient's last HgA1C was Hemoglobin A1C (%) Date Value 03/09/2018 7.8 09/08/2017 Test sent to [facility]. 06/08/2017 7.7 05/17/2016 7.8 ) Last Ophthalmology exam was within the past 12 months. Upcoming appt in August HTN: Ms. Lebron indicates that she is feeling well and denies any symptoms referable to elevated blood pressure. Specifically denies headache, chest pain, palpitations, dyspnea and peripheral edema. Patient denies any side effects of her medication(s) and is compliant with their regimen. She does not check BP's generally. Zarina works out regularly 3-5x times per week with walking on treadmill, light weights and goes to [employer]. She watches her diet for sodium, low fat and low cholesterol most of the time. Last 3 Encounter BP Readings: Date: BP: 06/15/2018 128/70 03/14/2018 138/56 10/04/2017 131/78 Hyperlipidemia. Ms. Lebron reports doing well on current therapy of atorvastatin (Lipitor) 40 mg. Reports side effect(s) of leg cramps intermittently. On Co-Q 10 already and uses heating pads for relief. Her most recent lipid panels are: Cholesterol, Total (mg/dL) Date Value 09/08/2017 Test sent to [facility]. 06/19/2013 146 Cholesterol,Total (mg/dL) Date Value 09/08/2017 113 HDL Cholesterol (mg/dL) Date Value 09/08/2017 Test sent to [facility]. 06/19/2013 39 LDL Cholesterol Date Value 09/08/2017 Test sent to [facility]. mg/dL 09/08/2017 43 Triglyceride Date Value 09/08/2017 Test sent to [facility]. mg/dL 09/08/2017 124 REVIEW OF SYSTEMS General: no fevers, no chills, no night sweats, no recurrent infections, no change in appetite and no change in energy HEENT: no frequent or significant headaches, no changes in hearing, no visual changes, no nose bleeds, no sinus or nasal problems Respiratory: no cough, no wheezing, no shortness of breath, no hemoptysis Cardiovascular: no chest pain, no chest pressure and no palpitations. Occasional LLE edema Endocrine: no fatigue, no weight gain, no hair loss, no dry skin, no cold intolerance, no heat intolerance, no neck pain/pressure, no polyuria, no polyphagia and no polydipsia Neurologic: No headache, weakness, numbness, tingling, neck stiffness, tremor, vertigo, dizziness, memory loss, syncope. PAST MEDICAL HISTORY Diagnosis Date - Anemia, unspecified - Carpal tunnel syndrome 07/02/2009 - Diverticulosis of colon (without mention of hemorrhage) - Hypertension - Inferior CO (HCC) 08/01/2010 01/13/[address] Ruddy Dejesus- routine f/u's and reconsideration of bypass. - Internal hemorrhoids without mention of complication - Localized osteoarthrosis not specified whether primary or secondary, unspecified site - Myocardial infarction (HCC) 09/19/2009 per patient - Polyneuropathy in diabetes(357.2) - Trigger finger 07/17/2009 - Type II or unspecified type diabetes mellitus without mention of complication, not stated as uncontrolled - Vitamin D deficiency 12/28/2011 PAST SURGICAL HISTORY Procedure Laterality Date - APPENDECTOMY - COLONOSCOP W/ OR W/O [facility] SPEC 09/26/05 Colonoscopy - COLONOSCOP W/ OR W/O [facility] SPEC 11/23/2015 Colonoscopy - HAND LEFT OP SURGERY 07/02/2009 - LIGATE FALLOPIAN TUBE Tubal ligation - PAST SURGICAL HISTORY OF 08/2006 laser surgery left eye - REMOVAL GALLBLADDER ALLERGIES Quinine Sulfate; Cipro [Ciprofloxacin]; Evista [Raloxifene Hcl]; Lisinopril; Altace [Ramipril] MEDICATIONS oxybutynin ER (DITROPAN XL) 10 mg 24 hr tablet TAKE 1 TABLET EVERY DAY dulaglutide (TRULICITY) 0.75 mg/0.5 mL pnij Inject 1 Dose subcutaneously once each week. Inject dose once per week. Discard Pen After clopidogrel (PLAVIX) 75 mg tablet Take 1 tablet by mouth once daily. losartan (COZAAR) 25 mg tablet Take 1 tablet by mouth once daily. atorvastatin (LIPITOR) 40 mg tablet TAKE 1 TABLET EVERY DAY Lancets (ACCU-CHEK MULTICLIX LANCET) lancets Test blood sugar once daily. metoprolol tartrate, short acting, (LOPRESSOR) 50 mg tablet Take 1 tablet by mouth twice daily. metoprolol tartrate, short acting, (LOPRESSOR) 50 mg tablet TAKE 1 TABLET TWICE DAILY acetaminophen (TYLENOL) 325 mg tablet Take 2 tablets by mouth every 4 hours as needed for Pain. glimepiride (AMARYL) 4 mg tablet Take 2 tablets by mouth daily with breakfast. Lysine 500 mg tab Take 1 tablet by mouth once daily. biotin 5 mg tab Take 1 tablet by mouth once daily. Lactobacillus acidophilus (BACID) cap Take 2 capsules by mouth once daily. magnesium oxide (MAG-OX) 400 mg tablet Take 1 tablet by mouth once daily. Insulin Severy, Disposable, (BD ULTRA-FINE ANTONINO PEN NEEDLES) 32 gauge x /32 ndle Use once daily with Victoza metFORMIN (GLUCOPHAGE) 500 mg tablet TAKE 2 TABLETS TWICE DAILY aspirin, enteric coated (ASPIRIN, ENTERIC COATED) 81 mg EC tablet Take 81 mg by mouth once daily. Xohltotlefz-Owfffxhem-Jjq C-Mn (GLUCOSAMINE-CHONDROITIN COMPLX) cap Take by mouth. vitamin b complex (B COMPLETE) Tab Take 1 tablet by mouth once daily. blood sugar diagnostic (ACCU-CHEK FRANCISCO J) Misc test strip TEST BLOOD SUGARS ONCE DAILY OMEGA-3 FATTY ACIDS CAP Take one(1) tablet one (1) times daily. COENZYME Q10 200 MG CAP Take one(1) tablet daily. THERAPEUTIC MULTIVITAMIN ORAL TAB Take one(1) tablet daily. VITAMIN C 500 MG ORAL TAB Take one(1) tablet daily. FAMILY HISTORY Problem Relation Age of Onset - Cancer Father lung cancer - glaucoma [OTHER] Brother - Diabetes Brother Social History Substance Use Topics - Smoking status: Never Smoker - Smokeless tobacco: Never Used - Alcohol use 1.0 oz/week Comment: rarely PHYSICAL EXAM BP 128/70 Pulse (!) 52 Temp 36.6 ?C (97.9 ?F) (Temporal Artery) Resp 16 Wt 74.4 kg (164 lb) SpO2 100% BMI 35.49 kg/m? General Appearance: well appearing, in no acute distress, alert Pysch: mood and affect broad and appropriate Skin: Skin color, texture, turgor normal for age; Head: normocephalic, atraumatic Eyes: conjunctiva pink and moist, no icterus, sclera white, non-injected Lungs: Lungs clear to auscultation. No wheezing, rhonchi, rales Heart: RRR without murmur, gallop, or rubs. No ectopy Bilateral Lower Extremities: No deformities, edema, skin discoloration, clubbing or cyanosis. Good capillary refill. , Pulses: 2+ BLOOD PRESSURE CONTROLLED due on 01/07/1966 INFLUENZA(1) due on 07/07/2018 STATIN MED ADHERENCE due on 07/07/2018 DIABETES MED ADHERENCE due on 07/07/2018 DILATED RETINAL EXAM due on 08/07/2018 URINE ALBUMIN:CREATININE RATIO due on 09/08/2018 LDL CHOLESTEROL due on 09/08/2018 SERUM CREATININE due on 09/08/2018 HBA1C due on 12/13/2018 DIABETIC FOOT EXAM due on 03/14/2019 ANNUAL PCP TEAM CHRONIC DISEASE VISIT due on 03/14/2019 MAMMOGRAM due on 03/29/2019 DTAP,TDAP,TD(3 - Tdap) due on 05/06/2025 COLORECTAL CANCER SCREENING,SEE MODIFIER due on 11/23/2025 BONE DENSITY Completed ADULT PREVNAR-13 Completed HEPATITIS C SCREENING Completed PNEUMOVAX AGE 65 AND OVER WITH 5YR LOOKBACK Completed ASSESSMENT/PLAN: 1. Uncontrolled type 2 diabetes mellitus without complication, without long-term current use of insulin (HCC) - ICD9: 250.02, ICD10: E11.65 (primary diagnosis) improved control - Continue current medications, diet/exercise and weight loss - Hold Trulicity as patient is unable to afford $340/month for medication and a1c is improving without - Check HgA1C in 3 months- patient gets labs done at [facility] - Blood glucose monitoring on a once a day schedule, fasting preferred. Patient to bring results to next appointment - Follow up in 3 months, sooner should any other issues arise. - HGB A1C 2. Essential hypertension - ICD9: 401.9, ICD10: I10 - good control - Continue current medication(s) - Encouraged dietary sodium restriction/DASH diet - Recommended regular aerobic exercise. - Recheck in 3 months, sooner should new symptoms or problems arise. - Goal of BP <130/80 - Recommended no refined sugar, low refined starch, healthy oil intake (olive oil), healthy protein (fish) along the lines of the Mediterranean diet. 3. Pure hypercholesterolemia - ICD9: 272.0, ICD10: E78.00 - good control - Continue current medication. - Encouraged following a low fat, low cholesterol diet. - Discussed the benefits of regular aerobic exercise and weight loss. - Follow up in 12 weeks. - Encouraged following a low carbohydrate, healthy oil intake diet. 4. Coronary artery disease involving telida coronary artery of telida heart without angina pectoris - ICD9: 414.01, ICD10: I25.10 Stable Continue current medications - Refill for Nitro given - Follow up in 3 months 5. CKD (chronic kidney disease) stage 3, GFR 30-59 ml/min ([facility]) - ICD9: 585.3, ICD10: N18.3 - Stable based on most recent lab review - Follow up in 3 months 6. PVD (peripheral vascular disease) ([facility]) - ICD9: 443.9, ICD10: I73.9 - Stable - Follow up in 3 months Puneet Armando APRN.[employer] Prescription instructions reviewed with patient as applicable. Potential red flag symptoms discussed with the patient. Reviewed appropriate action plan to take if red flag symptoms occur. Patient agreeable to treatment plan. Puneet Armando APRN.ARLENE 06/15/2018 10:41 AM Signed Once you get your Lancets, Please start checking your blood sugars daily- first thing in the morning before breakfast. Please record your readings and bring to your follow up appointment. Referring Provider: MARGARET GARCIA [[id number]] Allergies As of Date: 06/15/2018 Noted Allergy Reaction QUININE SULFATE 07/08/2005 5 - Intolerance Comments: thrombocytopenia CIPRO (CIPROFLOXACIN) 07/08/2005 5 - Intolerance Comments: swelling EVISTA (RALOXIFENE HCL) 04/15/2008 5 - Intolerance Comments: leg cramps LISINOPRIL 11/04/2009 3 - Cough ALTACE (RAMIPRIL) 07/08/2005 3 - Cough Date Reviewed: 06/15/2018 Reviewed by: Precious Oquendo Ma - Fully Assessed Reason for Visit: Recheck [92] Cmt: 3 month diabetes follow up Primary Visit Diagnosis:Uncontrolled type 2 diabetes mellitus without complication, without long-term current use of insulin ([facility]) [E11.65] Other Visit Diagnoses:Essential hypertension [I10] Pure hypercholesterolemia [E78.00] Coronary artery disease involving telida coronary artery of telida heart without angina pectoris [I25.10] CKD (chronic kidney disease) stage 3, GFR 30-59 ml/min ([facility]) [N18.3] PVD (peripheral vascular disease) ([facility]) [I73.9] Order(s):Lancets (ACCU-CHEK MULTICLIX LANCET) lancetsTest blood sugar once daily.Disp: 50 EachRfl: 11 nitroglycerin sublingual (NITROQUICK) 0.4 mg SL tabletDissolve 1 tablet under the tongue every 5 minutes as needed for Chest Pain.Disp: 1 Bottle of 25Rfl: 1 HGB A1C [ASQOS2Y] Order #: [id number] FUTURE Prescriptions as of 06/15/2018 Sig: LANCETS Test blood sugar once daily. NITROGLYCERIN 0.4 MG SUBLINGU* Dissolve 1 tablet under the t* OXYBUTYNIN CHLORIDE ER 10 MG * TAKE 1 TABLET EVERY DAY DULAGLUTIDE 0.75 MG/0.5 ML CHURCHILL* Inject 1 Dose subcutaneously * CLOPIDOGREL 75 MG TABLET Take 1 tablet by mouth once d* LOSARTAN 25 MG TABLET Take 1 tablet by mouth once d* ATORVASTATIN 40 MG TABLET TAKE 1 TABLET EVERY DAY METOPROLOL TARTRATE 50 MG TAB* Take 1 tablet by mouth twice * METOPROLOL TARTRATE 50 MG TAB* TAKE 1 TABLET TWICE DAILY ACETAMINOPHEN 325 MG TABLET Take 2 tablets by mouth every* GLIMEPIRIDE 4 MG TABLET Take 2 tablets by mouth daily* LYSINE 500 MG TABLET Take 1 tablet by mouth once d* BIOTIN 5 MG TABLET Take 1 tablet by mouth once d* LACTOBACILLUS ACIDOPHILUS CAP* Take 2 capsules by mouth once* MAGNESIUM OXIDE 400 MG TABLET Take 1 tablet by mouth once d* PEN NEEDLE, DIABETIC 32 GAUGE* Use once daily with Victoza METFORMIN 500 MG TABLET TAKE 2 TABLETS TWICE DAILY ASPIRIN 81 MG TABLET,DELAYED * Take 81 mg by mouth once zuhair* CRADBLEFBDS-BAKVBTZFT-DZL C-M* Take by mouth. * VITAMIN B COMPLEX TABLET Take 1 tablet by mouth once d* * BLOOD SUGAR DIAGNOSTIC STRIPS TEST BLOOD SUGARS ONCE DAILY * OMEGA-3 FATTY ACIDS CAPSULE Take one(1) tablet one (1) ti* * COENZYME Q10 200 MG CAPSULE Take one(1) tablet daily. * THERAPEUTIC MULTIVITAMIN TABL* Take one(1) tablet daily. * VITAMIN C 500 MG TABLET Take one(1) tablet daily. Problem List As Of Date 06/15/2018 Noted Resolved Diabetic polyneuropathy (HCC) [E11.42] LOC OSTEOARTH NOS-UNSPEC [M19.90] Diabetes mellitus type 2, uncontrolled, without*INVALID FOR* More... Dupuytren's Disease [M72.0] INVALID FOR* CAD (Coronary Artery Disease) [I25.10] INVALID FOR* More... Pure Hypercholesterolemia [E78.00] INVALID FOR* Hypertension [I10] INVALID FOR* More... More... More... Non-proliferative diabetic retinopathy, mild, b*INVALID FOR* More... Osteopenia [M85.80] INVALID FOR* More... Diabetes mellitus with neuropathy (HCC) [E11.40]INVALID FOR*06/11/2014 CKD (chronic kidney disease) stage 3, GFR 30-59*INVALID FOR* More... PVD (peripheral vascular disease) (HCC) [I73.9] INVALID FOR* Other instructions from your clinician: Once you get your Lancets, Please start checking your blood sugars daily- first thing in the morning before breakfast. Please record your readings and bring to your follow up appointment. Prescriptions ordered this encounter Disp Refills Start End LANCETS 50 E* 11 06/15/2018 Class: [employer] Sig: Test blood sugar once daily. NITROGLYCERIN 0.4 MG SUBLINGUAL TABL* 1 Nik* 1 06/15/2018 Route: SUBLINGUAL Sig: Dissolve 1 tablet under the tongue every 5 minutes as needed for Chest Pain. Medications Discontinued During This Encounter Lancets (ACCU-CHEK MULTICLIX LANCET)* 50 E* 11 10/26/2017 06/15/2018 Sig: Test blood sugar once daily. Disc: Reason for discontinue is not on file. Disposition: Return in about 3 months (around 09/15/2018). Follow-up and Disposition History Recorded Encounter Status:Closed by PUNEET ARMANDO CNP on 06/15/18 HEMOGLOBIN A1C Collected: 06/12/2018 Status: F Source: [place] 8:46 AM [facility] [place] Order Comment: DR GARCIA ORDERED: A1C ANNA LEMONS ORFDERED: LIPID, LIVER TYPE CODE TESTS RESULT OUT OF RANGE REFERENCE UNITS LAB L501.9985 4.2-6.3 % High HGB A1C 7.6 Performed By: #### L501.9985 #### [facility] [address] [place], [address] LIVER PROFILE Collected: 06/12/2018 Status: F Source: [place] 8:46 AM [facility] [place] Order Comment: Order Date: 06/15/17 Order Info: [id number] - *Hepatic Function Panel Reason for Laboratory Test hyperlipidemia Order Info: [id number] - *Lipid Profile CC PCP Comments: 12 hours fasting, may have water. Reason for Laboratory Test hypelipidemia DR GARCIA ORDERED: A1C ANNA LEMONS ORFDERED: LIPID, LIVER Comments: 12 hours fasting, may have water. TYPE CODE TESTS RESULT OUT OF RANGE REFERENCE UNITS LAB L501.1500 6.4-8.2 g/dL Normal T PROT 7.9 LAB L501.1800 3.2-5.0 g/dL Normal ALB 3.7 LAB L501.1950 2.2-4.2 g/dL Normal GLOB 4.2 LAB L501.4100 15-37 U/L Normal AST 21 LAB L501.4305 45-117 U/L Normal ALK P 58 LAB L501.4405 13-56 U/L Normal ALT 25 LAB L501.4600 0.20-1.00 mg/dL Normal T BILI 0.40 LAB L501.4700 0.00-0.30 mg/dL Normal D BILI 0.11 Performed By: #### L500.3400, L500.4100 #### [facility] [address] [place], [address] LIPID PROFILE Collected: 06/12/2018 Status: F Source: [place] 8:46 AM [facility] [place] Order Comment: Order Date: 06/15/17 Order Info: [id number] - *Hepatic Function Panel Reason for Laboratory Test hyperlipidemia Order Info: [id number] - *Lipid Profile CC PCP Comments: 12 hours fasting, may have water. Reason for Laboratory Test hypelipidemia DR GARCIA ORDERED: A1C ANNA LEMONS ORFDERED: LIPID, LIVER Comments: 12 hours fasting, may have water. TYPE CODE TESTS RESULT OUT OF RANGE REFERENCE UNITS LAB L501.4900 200 mg/dL Normal CHOL 110 Result Comment: <200 mg/dL Desirable 200-240 mg/dL Borderline >240 mg/dL High Risk LAB L501.5000 mg/dL Normal TRIG 143 Result Comment: The drugs N-Acetylcysteine and Metamizole may falsely depress this assay. Serum Triglycerides Reference Interval Normal <150 mg/dL Borderline high 150 - 199 mg/dL High 200 - 499 mg/dL Very High > or = 500 mg/dL LAB L501.6400 mg/dL Normal HDL 42 Result Comment: The drugs N-Acetylcysteine and Metamizole may falsely depress this assay. Reference Range HDL <40 mg/dL Low HDL Cholesterol HDL >or= 60 mg/dL High HDL Cholesterol LAB L501.6500 0-130 mg/dL Normal LDL 39 LAB L501.6600 5-40 mg/dL Normal VLDL 29 Performed By: #### L500.3400, L500.4100 #### [facility] [address] [place], [address] CNCO Observed: 05/16/2018 Status: COMPLETED Source: [place] 12:00 AM [facility] [place] RE[place] Letter Text Zarina Lebron [address] [facility] [address] 05/16/2018 CCF #: [id number] Dear , Due to a change in the provider's schedule it has been necessary to reschedule your Appointment. Your original appointment was scheduled for June 15, 2018 at 9:20AM with Margaret Garcia M.D. Your new appointment is now scheduled on July 18, 2018 at 9:20 AM with Margaret Garcia M.D. If this new appointment is not convenient for you, please contact our office at [phone]. Thank you for choosing the [facility] as your Healthcare Provider . Sincerely, Internal Medicine Appointment Office CNCO Observed: 05/16/2018 Status: COMPLETED Source: [place] 12:00 AM [facility] [place] [facility] Letter Text Zarina Lebron [address] [facility] [address] 05/16/2018 [facility] #: [id number] Dear JuanWill, Due to a change in the provider's schedule it has been necessary to reschedule your Appointment. Your original appointment was scheduled for June 15, 2018 at 9:20 AM with Margaret Garcia M.D. Your new appointment is now scheduled on June 15, 2018 at 10 AM with Puneet Armando CNP. If this new appointment is not convenient for you, please contact our office at [phone]. Thank you for choosing the [facility] as your Healthcare Provider . Sincerely, Internal Medicine Appointment Office PROGRESS Observed: 05/02/2018 Status: COMPLETED Source: [place] 8:53 AM [facility] REPOSITORY HNO ID: [id number] Author: Estela Marie Cornell Service: (none) Author Type: (none) Type: Progress Notes Filed: 05/02/2018 8:55 AM Note Text: Radiology Service Progress Note PATIENT NAME: Zarina Lebron DATE OF SERVICE: May 02, 2018 TIME: 8:53 AM PATIENT IDENTITY VERIFICATION COMPLETED USING TWO (2) METHODS: Patient confirmed name verbally and Date of . PATIENT GENDER DATA: Female. status: : No status: NO. PATIENT RELEVANT IMPLANT DATA REVIEWED: Not Applicable RADIOLOGY DEPARTMENT: Ultrasound PERIPHERAL IV DATA: Not applicable SIGNED BY: Estela Marie Cornell May 02, 2018 8:53 AM CNCO Observed: 05/02/2018 Status: COMPLETED Source: [place] 8:52 AM [facility] REPOSITORY HNO ID: [id number] Author: Mammography Coordinator Service: (none) Author Type: Physician Type: Letter Filed: 05/03/2018 11:31 PM Note Text: May 02, 2018 PID: [id number] Zarina Lebron [address] [place] [address] Dear Ms. Lebron, We are pleased to inform you that the results of your recent breast imaging exam on 05/02/2018 are normal and we recommend that you return to your annual screening Mammography schedule. Early detection of cancer is very important. We also understand recommendations regarding breast cancer screening are controversial. Please discuss with your primary care provider which strategy is best for you and whether a mammogram is right for you. Your imaging studies and report will be kept on file at [facility] as part of your permanent medical record and are available for your continuing care. Thank you for allowing us to help in meeting your health care needs. Sincerely, Dr. Millard Interpreting Radiologist [facility] (Return to Annual Mammogram schedule) CNCO Observed: 05/02/2018 Status: COMPLETED Source: [place] 8:52 AM [facility] REPOSITORY HNO ID: [id number] Author: Mammography Coordinator Service: (none) Author Type: Physician Type: Letter Filed: 05/03/2018 11:31 PM Note Text: May 02, 2018 PID: [id number] Zarina Lebron [address] [place] [address] Dear Ms. Lebron, We are pleased to inform you that the results of your recent breast imaging exam on 05/02/2018 are normal and we recommend that you return to your annual screening Mammography schedule. Early detection of cancer is very important. We also understand recommendations regarding breast cancer screening are controversial. Please discuss with your primary care provider which strategy is best for you and whether a mammogram is right for you. Your imaging studies and report will be kept on file at [facility] as part of your permanent medical record and are available for your continuing care. Thank you for allowing us to help in meeting your health care needs. Sincerely, Dr. Millard Interpreting Radiologist [facility] (Return to Annual Mammogram schedule) [facility] [employer] BREAST LTD Observed: 05/02/2018 Status: F Source: [place] RT 8:46 AM [facility] [place] RE[place] * * *Final Report* * * DATE OF EXAM: May 02 2018 8:46AM [facility] [id number] - [facility] US BREAST LTD RT / PROCEDURE REASON: call back right breast / abnormal mammogram * * * * Physician Interpretation * * * * #[id number] - [facility] DIAGNOSTIC RT UNILATERAL RIGHT DIGITAL DIAGNOSTIC MAMMOGRAM WITH CAD: 05/02/2018 HISTORY: Call Back Right Breast / Abnormal Mammogram. RESULT: TECHNIQUE: The study was acquired using full field digital technology and interpreted from soft copy. Current study was also evaluated with a Computer Aided Detection (CAD). Comparison is made to exams dated: 03/29/2018 mammogram, 03/14/2017 mammogram - [facility], 02/19/2016 mammogram, and 01/20/2015 mammogram - [facility]. The tissue of the right breast is predominantly fatty. Additional imaging reveals area of interest in the right breast on prior exam is not reproduced and presumably represents superimposed breast tissue. There are a few tortuous vessels in the area of concern. No significant masses, calcifications, or other findings are seen in the breast. NEGATIVE There is no mammographic evidence of malignancy. #[id number] - [facility] US BREAST LTD RT ULTRASOUND OF RIGHT BREAST: 05/02/2018 RESULT: Comparison is made to exams dated: 03/29/2018 mammogram, 03/14/2017 mammogram - [facility], 02/19/2016 mammogram, and 01/20/2015 mammogram - [facility]. Real-time ultrasound of the right breast was performed. No abnormalities were seen sonographically in the right breast. IMPRESSION: NEGATIVE There is no sonographic evidence of malignancy. Return to annual mammogram screening schedule is recommended. César dyer/francois:05/02/2018 08:52:27 Healthcare Liaison: Ingrid GONCALVES(Uri)(Tonio), [facility] letter sent: Return to Annual Mammogram BI-RADS: 1 Negative Ultrasound BI-RADS: 1 Negative Gum Mixer: Francois Transcribe Date/Time: May 02 2018 8:06A Dictated by : CÉSAR MILLARD MD This examination was interpreted and the report reviewed and electronically signed by: CÉSAR MILLARD MD on May 02 2018 8:52AM EST [id number] Observed: 05/02/2018 Status: COMPLETED Source: [place] 8:34 AM [facility] REPOSITORY HNO ID: [id number] Author: Ingrid Goncalves Service: (none) Author Type: (none) Type: Progress Notes Filed: 05/02/2018 8:35 AM Note Text: Radiology Service Progress Note PATIENT NAME: Zarina Lebron DATE OF SERVICE: May 02, 2018 TIME: 8:34 AM PATIENT IDENTITY VERIFICATION COMPLETED USING TWO (2) METHODS: Patient confirmed name verbally and Date of . PATIENT GENDER DATA: Female. status: : No status: NO. PATIENT RELEVANT IMPLANT DATA REVIEWED: Not Applicable RADIOLOGY DEPARTMENT: [facility] right diagnostic mammogram PERIPHERAL IV DATA: Not applicable SIGNED BY: Ingrid Goncalves May 02, 2018 8:34 AM [facility] DIAGNOSTIC RT Observed: 05/02/2018 Status: F Source: [place] 8:19 AM [facility] REPOSITORY * * *Final Report* * * DATE OF EXAM: May 02 2018 8:19AM [facility] [id number] - [facility] DIAGNOSTIC RT / PROCEDURE REASON: call back right breast / abnormal mammogram * * * * Physician Interpretation * * * * RESULT: #[id number] - [facility] DIAGNOSTIC RT UNILATERAL RIGHT DIGITAL DIAGNOSTIC MAMMOGRAM WITH CAD: 05/02/2018 HISTORY: Call Back Right Breast / Abnormal Mammogram. RESULT: TECHNIQUE: The study was acquired using full field digital technology and interpreted from soft copy. Current study was also evaluated with a Computer Aided Detection (CAD). Comparison is made to exams dated: 03/29/2018 mammogram, 03/14/2017 mammogram - [facility], 02/19/2016 mammogram, and 01/20/2015 mammogram - [facility]. The tissue of the right breast is predominantly fatty. Additional imaging reveals area of interest in the right breast on prior exam is not reproduced and presumably represents superimposed breast tissue. There are a few tortuous vessels in the area of concern. No significant masses, calcifications, or other findings are seen in the breast. NEGATIVE There is no mammographic evidence of malignancy. #[id number] - [facility] US BREAST LTD RT ULTRASOUND OF RIGHT BREAST: 05/02/2018 RESULT: Comparison is made to exams dated: 03/29/2018 mammogram, 03/14/2017 mammogram - [facility], 02/19/2016 mammogram, and 01/20/2015 mammogram - [facility]. Real-time ultrasound of the right breast was performed. No abnormalities were seen sonographically in the right breast. IMPRESSION: NEGATIVE There is no sonographic evidence of malignancy. Return to annual mammogram screening schedule is recommended. César dyer/francois:05/02/2018 08:52:27 Healthcare Liaison: Ingrid RAMOS)(Tonio), [facility] letter sent: Return to Annual Mammogram BI-RADS: 1 Negative Ultrasound BI-RADS: 1 Negative Gum Mixer: Francois Transcribe Date/Time: May 02 2018 8:06A Dictated by: CÉSAR MILLARD MD This examination was interpreted and the report reviewed and electronically signed by: CÉSAR MILLARD MD on May 02 2018 8:52AM EST [id number] CNCO Observed: 03/29/2018 Status: COMPLETED Source: [place] 3:35 PM [facility] REPOSITORY [facility] ID: [id number] Author: Mammography Coordinator Service: (none) Author Type: Physician Type: Letter Filed: 04/02/2018 11:32 PM Note Text: March 29, 2018 PID: [id number] Zarina Lebron [address] [place] [address] Dear Ms. Lebron, Your recent breast imaging exam on 03/29/2018 showed a possible finding that requires additional imaging studies for a complete evaluation. Most such findings are probably benign (not cancer). Please call [phone] or [phone] to schedule an appointment for your additional imaging if you have not already done so. Your breast images and report will be kept on file here as part of your permanent medical record and are available for your continuing care. Thank you for allowing us to help in meeting your health care needs. Sincerely, Dr. Bedoya Interpreting Radiologist [facility] (Additional imaging) [facility] SCREENING Observed: 03/29/2018 Status: F Source: [place] 8:28 AM [facility] [place] [facility] * * *Final Report* * * DATE OF EXAM: Mar 29 2018 8:28AM [facility] [id number] - [facility] SCREENING / PROCEDURE REASON: Encounter for screening mammogram for malignant neoplasm of breast * * * * Physician Interpretation * * * * RESULT: #[id number] - [facility] SCREENING BILATERAL DIGITAL SCREENING MAMMOGRAM WITH CAD: 03/29/2018 HISTORY: Encounter For Screening Mammogram For Malignant Neoplasm Of Breast\ Screening Mammogram - patient reports NO breast symptoms /priors available for comparison. RESULT: TECHNIQUE: The study was acquired using full field digital technology and interpreted from soft copy. Current study was also evaluated with a Computer Aided Detection (CAD). Comparison is made to exams dated: 03/14/2017 mammogram - [facility], 02/19/2016 mammogram, 01/20/2015 mammogram, and 01/13/2014 mammogram - [facility]. The tissue of both breasts is predominantly fatty. There is a focal asymmetry in the right breast upper inner aspect posterior depth. No other significant masses, calcifications, or other findings are seen in either breast. IMPRESSION: INCOMPLETE: NEEDS ADDITIONAL IMAGING EVALUATION The focal asymmetry in the right breast is indeterminate. Additional views are recommended. Live xavier/penrad:03/29/2018 15:35:32 Healthcare Liaison: Marion RAMOS)(Ton[place]), [facility] letter sent: Additional Imaging Needed Mammogram BI-RADS: 0 Incomplete: needs additional imaging evaluation If this report indicates you need additional imaging, and it has NOT yet been performed, please call , to schedule. We sincerely thank you for choosing the [facility] for your breast imaging needs. Gum Mixer: Francois Transcribe Date/Time: Mar 29 2018 8:44A Dictated by: LIVE BEDOYA MD This examination was interpreted and the report reviewed and electronically signed by: LIVE BEDOYA MD on Mar 29 2018 3:35PM EST [id number] Observed: 03/14/2018 Status: COMPLETED Source: [place] 8:19 AM [facility] REPOSITORY HNO ID: [id number] Author: Margaret Garcia Service: (none) Author Type: Physician Type: Progress Notes Filed: 03/14/2018 12:40 PM Note Text: Reason for Visit Patient presents with: Established Patient: 3 month follow up-labs Zarina Lebron is a 68 year old female who presents here today for Above Complaints.. Health Maintenance DIABETIC FOOT EXAM MAMMOGRAM HPI Diabetes mellitus type 2, uncontrolled, without complications (HCC) Has not been checking her sugars recently. She forgets to use her machine, then she did not find it. Been trying to eat better than she did in the past. Is very active, always doing something. Her has is 7.8 from 7.7. She usually looses weight during the holidays. ? CAD (Coronary Artery Disease) ? No recent chest pain or SOB ? CKD (chronic kidney disease) stage 3, GFR 30-59 ml/min (HCC) Avoid NSAIDS like naproxen, motrin, brufen, aleve etc and contrast. ? ? Hypertension BP is well controlled on current regimen of medicines which is tolerated well. No significant side effects ? Lipids are normal, reviewed test results with patient Who takes medications regularly and has no side effects. No problem-specific Assessment AND Plan notes found for this encounter. PAST MEDICAL HISTORY Diagnosis Date - Anemia, unspecified - Carpal tunnel syndrome 07/02/2009 - Diverticulosis of colon (without mention of hemorrhage) - Hypertension - Inferior CO (HCC) 08/01/2010 01/13/[address] Ruddy Dejesus- routine f/u's and reconsideration of bypass. - Internal hemorrhoids without mention of complication - Localized osteoarthrosis not specified whether primary or secondary, unspecified site - Myocardial infarction (HCC) 09/19/2009 per patient - Polyneuropathy in diabetes(357.2) - Trigger finger 07/17/2009 - Type II or unspecified type diabetes mellitus without mention of complication, not stated as uncontrolled - Vitamin D deficiency 12/28/2011 PAST SURGICAL HISTORY Procedure Laterality Date - APPENDECTOMY - COLONOSCOP W/ OR W/O [facility] SPEC 09/26/05 Colonoscopy - COLONOSCOP W/ OR W/O [facility] SPEC 11/23/2015 Colonoscopy - HAND LEFT OP SURGERY 07/02/2009 - LIGATE FALLOPIAN TUBE Tubal ligation - PAST SURGICAL HISTORY OF 08/2006 laser surgery left eye - REMOVAL GALLBLADDER FAMILY HISTORY Problem Relation Age of Onset - Cancer Father lung cancer - glaucoma [OTHER] Brother - Diabetes Brother Social History Substance Use Topics - Smoking status: Never Smoker - Smokeless tobacco: Never Used - Alcohol use 1.0 oz/week Comment: rarely Past medical history, appointments, medications, allergies reviewed. Pertinent Lab/Diagnostic Studies are reviewed and discussed today Current Outpatient Prescriptions: - oxybutynin ER (DITROPAN XL) 10 mg 24 hr tablet - clopidogrel (PLAVIX) 75 mg tablet - losartan (COZAAR) 25 mg tablet - atorvastatin (LIPITOR) 40 mg tablet - Lancets (ACCU-CHEK MULTICLIX LANCET) lancets - metoprolol tartrate, short acting, (LOPRESSOR) 50 mg tablet - metoprolol tartrate, short acting, (LOPRESSOR) 50 mg tablet - liraglutide (VICTOZA 2-TAHIR) 0.6 mg/0.1 mL (18 mg/3 mL) pnij - acetaminophen (TYLENOL) 325 mg tablet - glimepiride (AMARYL) 4 mg tablet - Lysine 500 mg tab - biotin 5 mg tab - Lactobacillus acidophilus (BACID) cap - magnesium oxide (MAG-OX) 400 mg tablet - Insulin Severy, Disposable, (BD ULTRA-FINE ANTONINO PEN NEEDLES) 32 gauge x 5/32 ndle - metFORMIN (GLUCOPHAGE) 500 mg tablet - aspirin, enteric coated (ASPIRIN, ENTERIC COATED) 81 mg EC tablet - Cibohegmcmy-Umpfhlzqg-Wii C-Mn (GLUCOSAMINE-CHONDROITIN COMPLX) cap - vitamin b complex (B COMPLETE) Tab - blood sugar diagnostic (ACCU-CHEK FRANCISCO J) Misc test strip - OMEGA-3 FATTY ACIDS CAP - COENZYME Q10 200 MG CAP - THERAPEUTIC MULTIVITAMIN ORAL TAB - VITAMIN C 500 MG ORAL TAB Review of Systems CONSTITUTIONAL: No fevers, chills night sweats, unintended weight loss CARDIOVASCULAR: No chest pain, dyspnea, palpitations, orthopnea, PND, ankle edema. PULM: No dyspnea, unexplained cough. GI: No dysphagia/odynophagia, problematic reflux, constipation, diarrhea, changes in stool habits, hematochezia, melena. : No new urinary complaints, including dysuria, gross hematuria or pyuria. NEURO: No new balance problems, peripheral weakness/paresthesias or numbness of concern. Physical Exam BP 138/56 (BP Site: Right Arm, BP Position: Sitting, BP Cuff Size: Regular Adult) Pulse (!) 58 Resp 12 Ht 144.8 cm (4' 9) Wt 76.7 kg (169 lb) SpO2 99% BMI 36.57 kg/m? General appearance: Well appearing, alert, in no acute distress, well nourished. Skin: Skin color, texture, turgor normal, no suspicious rashes or lesions Head: Normocephalic, no masses, lesions, tenderness or abnormalities Eyes: Anicteric sclera. Pupils are equally round and reactive to light. Extraocular movements are intact. Lungs: Lungs clear to auscultation. No wheezing, rhonchi, rales Heart: RRR without murmur, gallop, or rubs. Feet: Shoes and socks removed, No deformities, ulcers, calluses, normal distal pulses and sensitive to 10 gm monofilament ASSESSMENT/PLAN: 1. Uncontrolled type 2 diabetes mellitus without complication, without long-term current use of insulin (HCC) - ICD9: 250.02, ICD10: Discussed that she should add more protein in her diet. Exercise more and loose some weight If trulicity is not covered then we can do invokana else we will have to put her on insulin. - DULAGLUTIDE 0.75 MG/0.5 ML SUBCUTANEOUS PEN INJECTOR - HGB A1C 2. Essential hypertension - ICD9: 401.9, ICD10: I10 - good control - Recommended regular aerobic exercise. - Recommend home blood pressure monitoring, to bring results in on next visit - Goal of BP <130/80 3. Pure hypercholesterolemia - ICD9: 272.0, ICD10: E78.00 - good control - Continue current medication. 4. CKD (chronic kidney disease) stage 3, GFR 30-59 ml/min - ICD9: 585.3, ICD10: N18.3 Avoid NSAIDS like naproxen, motrin, brufen, aleve etc and contrast. 5. Coronary artery disease involving telida coronary artery of telida heart without angina pectoris - ICD9: 414.01, ICD10: I25.10 6. Breast cancer screening by mammogram - ICD9: V76.12, ICD10: Z12.31 - Completed pelvic and breast exam - Encouraged monthly BSE - Follow up for annual exam in one year. - MATTHEW SCREENING MARGARET GARCIA MD CNOV Observed: 03/14/2018 Status: COMPLETED Source: [place] 8:00 AM [facility] REPOSITORY Office Visit (INTMWS) ZARINA LEBRON ([id number]) 1950 F Date Time Provider Department 03/14/18 8:00 AM MARGARET GARCIA INTMWS During your visit today, we recorded the following information about you: Pulse Respiration Blood pressure Weight 58/minute 12/minute 138/56 76.7 kg Height 1.448 m Margaret Garcia 03/14/2018 12:40 PM Signed Reason for Visit Patient presents with: Established Patient: 3 month follow up-labs Zarina Lebron is a 68 year old female who presents here today for Above Complaints.. Health Maintenance DIABETIC FOOT EXAM MAMMOGRAM HPI Diabetes mellitus type 2, uncontrolled, without complications (HCC) Has not been checking her sugars recently. She forgets to use her machine, then she did not find it. Been trying to eat better than she did in the past. Is very active, always doing something. Her has is 7.8 from 7.7. She usually looses weight during the holidays. ? CAD (Coronary Artery Disease) ? No recent chest pain or SOB ? CKD (chronic kidney disease) stage 3, GFR 30-59 ml/min ([facility]) Avoid NSAIDS like naproxen, motrin, brufen, aleve etc and contrast. ? ? Hypertension BP is well controlled on current regimen of medicines which is tolerated well. No significant side effects ? Lipids are normal, reviewed test results with patient Who takes medications regularly and has no side effects. No problem-specific Assessment AND Plan notes found for this encounter. PAST MEDICAL HISTORY Diagnosis Date - Anemia, unspecified - Carpal tunnel syndrome 07/02/2009 - Diverticulosis of colon (without mention of hemorrhage) - Hypertension - Inferior CO (HCC) 08/01/2010 01/13/[address] Ruddy Dejesus- routine f/u's and reconsideration of bypass. - Internal hemorrhoids without mention of complication - Localized osteoarthrosis not specified whether primary or secondary, unspecified site - Myocardial infarction (HCC) 09/19/2009 per patient - Polyneuropathy in diabetes(357.2) - Trigger finger 07/17/2009 - Type II or unspecified type diabetes mellitus without mention of complication, not stated as uncontrolled - Vitamin D deficiency 12/28/2011 PAST SURGICAL HISTORY Procedure Laterality Date - APPENDECTOMY - COLONOSCOP W/ OR W/O [facility] SPEC 09/26/05 Colonoscopy - COLONOSCOP W/ OR W/O [facility] SPEC 11/23/2015 Colonoscopy - HAND LEFT OP SURGERY 07/02/2009 - LIGATE FALLOPIAN TUBE Tubal ligation - PAST SURGICAL HISTORY OF 08/2006 laser surgery left eye - REMOVAL GALLBLADDER FAMILY HISTORY Problem Relation Age of Onset - Cancer Father lung cancer - glaucoma [OTHER] Brother - Diabetes Brother Social History Substance Use Topics - Smoking status: Never Smoker - Smokeless tobacco: Never Used - Alcohol use 1.0 oz/week Comment: rarely Past medical history, appointments, medications, allergies reviewed. Pertinent Lab/Diagnostic Studies are reviewed and discussed today Current Outpatient Prescriptions: - oxybutynin ER (DITROPAN XL) 10 mg 24 hr tablet - clopidogrel (PLAVIX) 75 mg tablet - losartan (COZAAR) 25 mg tablet - atorvastatin (LIPITOR) 40 mg tablet - Lancets (ACCU-CHEK MULTICLIX LANCET) lancets - metoprolol tartrate, short acting, (LOPRESSOR) 50 mg tablet - metoprolol tartrate, short acting, (LOPRESSOR) 50 mg tablet - liraglutide (VICTOZA 2-TAHIR) 0.6 mg/0.1 mL (18 mg/3 mL) pnij - acetaminophen (TYLENOL) 325 mg tablet - glimepiride (AMARYL) 4 mg tablet - Lysine 500 mg tab - biotin 5 mg tab - Lactobacillus acidophilus (BACID) cap - magnesium oxide (MAG-OX) 400 mg tablet - Insulin Severy, Disposable, (BD ULTRA-FINE ANTONINO PEN NEEDLES) 32 gauge x /32 ndle - metFORMIN (GLUCOPHAGE) 500 mg tablet - aspirin, enteric coated (ASPIRIN, ENTERIC COATED) 81 mg EC tablet - Pssggexxohm-Ckosqbzpt-Cou C-Mn (GLUCOSAMINE-CHONDROITIN COMPLX) cap - vitamin b complex (B COMPLETE) Tab - blood sugar diagnostic (ACCU-CHEK FRANCISCO J) Misc test strip - OMEGA-3 FATTY ACIDS CAP - COENZYME Q10 200 MG CAP - THERAPEUTIC MULTIVITAMIN ORAL TAB - VITAMIN C 500 MG ORAL TAB Review of Systems CONSTITUTIONAL: No fevers, chills night sweats, unintended weight loss CARDIOVASCULAR: No chest pain, dyspnea, palpitations, orthopnea, PND, ankle edema. PULM: No dyspnea, unexplained cough. GI: No dysphagia/odynophagia, problematic reflux, constipation, diarrhea, changes in stool habits, hematochezia, melena. : No new urinary complaints, including dysuria, gross hematuria or pyuria. NEURO: No new balance problems, peripheral weakness/paresthesias or numbness of concern. Physical Exam BP 138/56 (BP Site: Right Arm, BP Position: Sitting, BP Cuff Size: Regular Adult) Pulse (!) 58 Resp 12 Ht 144.8 cm (4' 9) Wt 76.7 kg (169 lb) SpO2 99% BMI 36.57 kg/m? General appearance: Well appearing, alert, in no acute distress, well nourished. Skin: Skin color, texture, turgor normal, no suspicious rashes or lesions Head: Normocephalic, no masses, lesions, tenderness or abnormalities Eyes: Anicteric sclera. Pupils are equally round and reactive to light. Extraocular movements are intact. Lungs: Lungs clear to auscultation. No wheezing, rhonchi, rales Heart: RRR without murmur, gallop, or rubs. Feet: Shoes and socks removed, No deformities, ulcers, calluses, normal distal pulses and sensitive to 10 gm monofilament ASSESSMENT/PLAN: 1. Uncontrolled type 2 diabetes mellitus without complication, without long-term current use of insulin (HCC) - ICD9: 250.02, ICD10: Discussed that she should add more protein in her diet. Exercise more and loose some weight If trulicity is not covered then we can do invokana else we will have to put her on insulin. - DULAGLUTIDE 0.75 MG/0.5 ML SUBCUTANEOUS PEN INJECTOR - HGB A1C 2. Essential hypertension - ICD9: 401.9, ICD10: I10 - good control - Recommended regular aerobic exercise. - Recommend home blood pressure monitoring, to bring results in on next visit - Goal of BP <130/80 3. Pure hypercholesterolemia - ICD9: 272.0, ICD10: E78.00 - good control - Continue current medication. 4. CKD (chronic kidney disease) stage 3, GFR 30-59 ml/min - ICD9: 585.3, ICD10: N18.3 Avoid NSAIDS like naproxen, motrin, brufen, aleve etc and contrast. 5. Coronary artery disease involving telida coronary artery of telida heart without angina pectoris - ICD9: 414.01, ICD10: I25.10 6. Breast cancer screening by mammogram - ICD9: V76.12, ICD10: Z12.31 - Completed pelvic and breast exam - Encouraged monthly BSE - Follow up for annual exam in one year. - MATTHEW SCREENING MARGARET GARCIA MD Referring Provider: MARGARET GARCIA [[id number]] Allergies As of Date: 03/14/2018 Noted Allergy Reaction QUININE SULFATE 07/08/2005 5 - Intolerance Comments: thrombocytopenia CIPRO (CIPROFLOXACIN) 07/08/2005 5 - Intolerance Comments: swelling EVISTA (RALOXIFENE HCL) 04/15/2008 5 - Intolerance Comments: leg cramps LISINOPRIL 11/04/2009 3 - Cough ALTACE (RAMIPRIL) 07/08/2005 3 - Cough Date Reviewed: 03/14/2018 Reviewed by: Margaret Garcia - Fully Assessed Reason for Visit: Established Patient [175] Cmt: 3 month follow up-labs Primary Visit Diagnosis:Uncontrolled type 2 diabetes mellitus without complication, without long-term current use of insulin (HCC) [E11.65] Other Visit Diagnoses:Essential hypertension [I10] Pure hypercholesterolemia [E78.00] CKD (chronic kidney disease) stage 3, GFR 30-59 ml/min [N18.3] Coronary artery disease involving telida coronary artery of telida heart without angina pectoris [I25.10] Breast cancer screening by mammogram [Z12.31] Order(s):[facility] [[id number]] Order #: [id number] FUTURE dulaglutide (TRULICITY) 0.75 mg/0.5 mL pnijInject 1 Dose subcutaneously once each week. Inject dose once per week. Discard Pen AfterDisp: 4 PenRfl: 0 HGB A1C [SLPEE8C] Order #: [id number] FUTURE Prescriptions as of 03/14/2018 Sig: DULAGLUTIDE 0.75 MG/0.5 ML CHURCHILL* Inject 1 Dose subcutaneously * OXYBUTYNIN CHLORIDE ER 10 MG * Take 1 tablet by mouth once d* CLOPIDOGREL 75 MG TABLET Take 1 tablet by mouth once d* LOSARTAN 25 MG TABLET Take 1 tablet by mouth once d* ATORVASTATIN 40 MG TABLET TAKE 1 TABLET EVERY DAY LANCETS Test blood sugar once daily. METOPROLOL TARTRATE 50 MG TAB* Take 1 tablet by mouth twice * METOPROLOL TARTRATE 50 MG TAB* TAKE 1 TABLET TWICE DAILY ACETAMINOPHEN 325 MG TABLET Take 2 tablets by mouth every* GLIMEPIRIDE 4 MG TABLET Take 2 tablets by mouth daily* LYSINE 500 MG TABLET Take 1 tablet by mouth once d* BIOTIN 5 MG TABLET Take 1 tablet by mouth once d* LACTOBACILLUS ACIDOPHILUS CAP* Take 2 capsules by mouth once* MAGNESIUM OXIDE 400 MG TABLET Take 1 tablet by mouth once d* PEN NEEDLE, DIABETIC 32 GAUGE* Use once daily with Victoza METFORMIN 500 MG TABLET TAKE 2 TABLETS TWICE DAILY ASPIRIN 81 MG TABLET,DELAYED * Take 81 mg by mouth once zuhair* [id number]-[id number] C-M* Take by mouth. * VITAMIN B COMPLEX TABLET Take 1 tablet by mouth once d* * BLOOD SUGAR DIAGNOSTIC STRIPS TEST BLOOD SUGARS ONCE DAILY * OMEGA-3 FATTY ACIDS CAPSULE Take one(1) tablet one (1) ti* * COENZYME Q10 200 MG CAPSULE Take one(1) tablet daily. * THERAPEUTIC MULTIVITAMIN TABL* Take one(1) tablet daily. * VITAMIN C 500 MG TABLET Take one(1) tablet daily. Problem List As Of Date 03/14/2018 Noted Resolved Diabetic polyneuropathy (HCC) [E11.42] LOC OSTEOARTH NOS-UNSPEC [M19.90] Diabetes mellitus type 2, uncontrolled, without*INVALID FOR* More... Dupuytren's Disease [M72.0] INVALID FOR* CAD (Coronary Artery Disease) [I25.10] INVALID FOR* More... Pure Hypercholesterolemia [E78.00] INVALID FOR* Hypertension [I10] INVALID FOR* More... More... More... Non-proliferative diabetic retinopathy, mild, b*INVALID FOR* More... Osteopenia [M85.80] INVALID FOR* More... Diabetes mellitus with neuropathy (HCC) [E11.40]INVALID FOR*06/11/2014 CKD (chronic kidney disease) stage 3, GFR 30-59*INVALID FOR* More... PVD (peripheral vascular disease) ([facility]) [I73.9] INVALID FOR* Prescriptions ordered this encounter Disp Refills Start End DULAGLUTIDE 0.75 MG/0.5 ML SUBCUTANE* 4 Pen 0 03/14/2018 Route: SUBCUTANEOUS Sig: Inject 1 Dose subcutaneously once each week. Inject dose once per week. Discard Pen After Medications Discontinued During This Encounter liraglutide (VICTOZA 2-TAHIR) 0.6 mg/0* 4 Pa* 2 10/06/2017 03/14/2018 Route: SUBCUTANEOUS Sig: Inject 1.8 mg subcutaneously once daily. for one month, then titrate to 1.6mg daily Disc: Reason for discontinue is not on file. Encounter Status:Closed by MARGARET GARCIA MD on 03/14/18 HEMOGLOBIN A1C Collected: 03/09/2018 Status: F Source: [place] 8:51 AM [facility] [place] CODE TESTS RESULT OUT OF RANGE REFERENCE UNITS LAB L501.9985 4.2-6.3 % High HGB A1C 7.8 Performed By: #### L501.9985 #### [facility] [address] [place], [address] ALLERGIES ALLERGIES DATE TYPE / NAME / CODE REACTION SEVERITY SOURCE CODE 06/25/2018 Drug ciprofloxacin Swelling Unknown [place] Allergy/41 HCl/[id number](RXNO Community [id number]([facility]) Repository 06/25/2018 Drug ciprofloxacin/F0060 Swelling Unknown [place] Allergy/41 30090(RXNORM) Community [id number]([facility]) Repository 06/25/2018 Drug ramipril/[id number] Other Unknown Michael Allergy/41 (RXNORM) Community [id number]( [facility]) Repository 11/04/2009 DRUG LISINOPRIL COUGH [place] [facility]/ Clinic Main [id number]( [place] [facility]) Repository 04/15/2008 DRUG RALOXIFENE HCL INTOLERANCE [place] [facility]/41 Clinic Main [id number]( [place] [facility]) Repository 07/08/2005 DRUG QUININE SULFATE INTOLERANCE [place] [facility]/41 Clinic Main [id number]( [place] [facility]) Repository 07/08/2005 [facility] [id number] [place] [facility] Repository 07/08/2005 DRUG RAMIPRIL COUGH [facility]/41 Clinic Main [id number]([facility]) Repository ENCOUNTERS ENCOUNTERS ADMIT/DISCHARGE ACCOUNT ADMITTING ENCOUNTER LOCATION SOURCE NUMBER CLASS 11/22/2018 [id number] [facility] ing:MTRAD Repository 09/15/2018 [id number] [facility] ing:LAB.FUTUR Repository E 09/14/2018/09/17/20 [id number] Ambulatory [address] Main [place] Repository 08/20/2018/08/20/20 [id number] Ambulatory [address] Repository 06/25/2018/06/25/20 [id number] Ambulatory BMSBuilding:B [place] 18 [facility] Repository 06/15/2018/06/18/20 [id number] Ambulatory [address] Repository 06/12/2018 [id number] Ambulatory [facility] ing:MTLAB Repository 05/02/2018/05/02/20 [id number] Ambulatory [address] Main [place] Repository 05/02/2018/05/02/20 [id number] Ambulatory [address] Repository 03/29/2018/03/29/20 [id number] Ambulatory [address] Main [place] Repository 03/14/2018/03/15/20 [id number] Ambulatory [address] Repository 03/09/2018 [id number] Ambulatory [facility] ing:MTLAB Repository PAYERS PAYERS ENCOUNTER GUARANTOR PAYER SUBSCRIBER SOURCE 11/22/2018 ZARINA J Primary ZARINA J Michael [id number] Insurance:OB TREECEDOB: [facility] [address] [facility] [id number] Repository [id number]: [phone] [id number] [phone] (HP) Date:[id number] [address]VW: 11/22/2018 Secondary ZARINA J Michael Insurance:MEDICARE TREECEDOB: Community PART A [facility] [id number] Hospital Number: Repository [id number] Date:2018-11-22 11/22/2018 Tertiary NOT GIVENUNK Michael Insurance:SELF PAY [facility] Number: Effective Repository Date:2018-11-22 09/15/2018 ZARINA J Primary ZARINA J [place] [id number] Insurance:MEDICARE TREECEDOB: Community [address] PART A [id number] [place] Number[facility] Repository [address]Uiv: 330 [id number] [phone] () Date:2018-06-18 09/15/2018 Secondary NOT GIVENUNK Michael Insurance:SELF PAY [facility] Number: Effective Repository Date:2018-06-18 06/25/2018 ZARINA J Primary ZARINA J Michael [id number] Insurance:MEDICARE TREECEDOB: Community [address] PART A [id number] [place] Number: Repository [address]Dil: 330 [id number] [phone] (HP) Date:2017-10-24 06/25/2018 Secondary NOT GIVENUNK [place] Insurance:SELF PAY [facility] Number: Effective Repository Date:2017-10-24 06/12/2018 ZARINA J Primary ZARINA J Michael [id number] Insurance:MEDICARE TREECEDOB: Community [address] PART A [facility] [id number] [place] Number: Repository [address]Onn: 330 [id number] [phone] () Date:2018-06-12 06/12/2018 Secondary NOT GIVENUNK [place] Insurance:SELF PA[facility] Effective Repository Date:2018-06-12 03/09/2018 Zarina Romero Primary Zarina Rodriguez [id number] Insurance:MEDICARE TreeceDOB: Community [address] PART A [facility] [id number] Number: Repository [address]Spn: [phone] [id number] [phone] () Date:2018-03-09 03/09/2018 Secondary NOT GIVENUNK [place] Insurance:SELF PAY [facility] Number: Effective Repository Date:2018-03-09
== END ==
PROVIDERS: Family Provider Internal Medicine; PCP Internal Medicine; Referring Provider Family Medicine; Visit Provider Family Medicine
DX: M79.672 Pain in left foot (principal)
CPT/HCPCS: 73630

== ENCOUNTER → 2019-04-04 | Outpatient (CLI) | payer MEDICARE, SELFPAY ==
[2019-04-04 12:23] LABS: BNP,B-Type NATRIURETIC PEPTIDE 90.1 pg/mL (0-100)
== END | disposition home or self-care (01) ==
LOC: LABSPEC 11:29
PROVIDERS: Family Provider Internal Medicine; PCP Internal Medicine; Referring Provider Nurse Practitioner; Visit Provider Nurse Practitioner
DX: R06.01 Orthopnea (principal); R07.89 Other chest pain; R60.9 Edema, unspecified
CPT/HCPCS: 83880

== ENCOUNTER → 2019-06-19 | Outpatient (CLI) | payer MEDICARE, SELFPAY ==
[2018-06-25 10:29] VITALS: BMI 35.6
[2019-06-19 10:59] LABS: AST(SGOT) 17 U/L (15-37); Albumin, Serum 3.6 g/dL (3.2-5.0); Alkaline Phosphatase 55 U/L (45-117); Globulin 4.1 g/dL (2.2-4.2); Protein, Total 7.7 g/dL (6.4-8.2)
[2019-06-19 11:00] LABS: Alanine Aminotransfer ALT/SGPT 24 U/L (13-56); Bilirubin, Direct 0.11 mg/dL (0.00-0.30); Cholesterol 102 mg/dL (200); High Density Lipoprotein 34 mg/dL; Triglycerides 151 mg/dL; Very Low Density Lipoprotein 30 mg/dL (5-40)
== END | disposition home or self-care (01) ==
LOC: LAB 09:27
PROVIDERS: Internal Medicine Cardiovascular Disease; Family Provider Internal Medicine; PCP Internal Medicine; Referring Provider Nurse Practitioner Family; Visit Provider Nurse Practitioner Family
DX: E78.00 Pure hypercholesterolemia, unspecified (principal)
CPT/HCPCS: 36415; 80061; 80076

== ENCOUNTER → 2020-07-20 06:53 | Outpatient (CLI) | payer MEDICARE, SELFPAY ==
[2020-06-25 10:29] VITALS: BMI 34.2
--- NOTE | 2020-07-20 10:55 | STRESSREP ---
Stress Test Report Pharmacologic myocardial perfusion stress test. 70-year-old lady with a history of coronary artery disease. Stress protocol: Resting EKG demonstrates normal sinus rhythm with a rate of [address] changes noted in lead III and aVF. Resting blood pressure is 110/70 mmHg. 0.4 mg of regadenoson was infused per usual protocol followed by rapid intravenous saline flush injection continuous EKG monitoring was performed. The maximum heart rate was 88 bpm which was 59% of maximum predicted heart rate the maximum workload was 1 metabolic equivalent. At rest there were no ST or T wave changes noted to suggest abnormal flow reserve at peak infusion nonspecific ST-T wave changes were noted to suggest abnormal flow reserve. Myocardial perfusion protocol. 14.2 mCi of technetium 99m sestamibi was injected at rest. 0.4 mg of regadenoson was infused per usual protocol. At peak infusion 38.0 mCi of technetium 99m sestamibi was injected stress images were obtained stress and rest images were reconstructed and compared in the short axis vertical and horizontal long axis. Gated images were also obtained. Perfusion SPECT analysis: Review of the stress images demonstrate normal uptake of tracer noted in all areas of the myocardium the resting images similar demonstrate normal uptake of tracer noted in all areas of the myocardium. No areas of reversibility are noted to suggest ischemia no previous infarct is noted. Gated SPECT analysis: The gated ejection fraction is noted to be 72%. Conclusion: Normal pharmacologic myocardial perfusion stress test. Preserved ejection fraction.
== END ==
PROVIDERS: PCP Internal Medicine; Referring Provider Internal Medicine Cardiovascular Disease; Visit Provider Internal Medicine Cardiovascular Disease
DX: I25.10 Atherosclerotic heart disease of native coronary artery without angina pectoris (principal); Z95.5 Presence of coronary angioplasty implant and graft
CPT/HCPCS: 78452; 93017; A9500; A4216; J2785

== ENCOUNTER → 2021-06-14 08:46 | Outpatient (CLI) | payer MEDICARE, SELFPAY ==
[2020-06-25 10:29] VITALS: BMI 34.2
[2021-06-14 09:43] LABS: Hemoglobin A1c 6.5 % (3.8-5.6)
[2021-06-14 09:57] LABS: AST(SGOT) 21 U/L (15-37); Alanine Aminotransfer ALT/SGPT 30 U/L (13-56); Albumin, Serum 3.7 g/dL (3.2-5.0); Alkaline Phosphatase 70 U/L (45-117); Anion Gap 6 (5-15); BUN 28 mg/dL (7-18); BUN/Creat Ratio 27.2 RATIO (10-20); Calcium,Total 9.1 mg/dL (8.5-10.1); Chloride 107 mmol/L (98-107); Cholesterol 101 mg/dL (200); Creatinine, Serum 1.03 mg/dL (0.55-1.02); EST Glomerular Filtration Rate 56 mL/min (>60); Est Glom Filt Rate - Afr Amer 68 mL/min (>60); Globulin 3.8 g/dL (2.2-4.2); Glucose 84 mg/dL (74-106); High Density Lipoprotein 34 mg/dL; Potassium 4.3 mmol/L (3.5-5.1); Protein, Total 7.5 g/dL (6.4-8.2); Sodium Level 139 mmol/L (136-145); Triglycerides 153 mg/dL
[2021-06-14 09:58] LABS: Very Low Density Lipoprotein 31 mg/dL (5-40)
== END ==
PROVIDERS: Nurse Practitioner Family; PCP Internal Medicine; Visit Provider Nurse Practitioner Primary Care
DX: E78.00 Pure hypercholesterolemia, unspecified (principal); E11.42 Type 2 diabetes mellitus with diabetic polyneuropathy; I10 Essential (primary) hypertension
CPT/HCPCS: 36415; 80053; 80061; 82248; 83036

== ENCOUNTER → 2021-07-20 10:42 | Outpatient (CLI) | payer MEDICARE, SELFPAY ==
--- NOTE | 2021-07-20 10:52 | ECHOD_ITS ---
Reason For Study: DYSPNEA/SOB W/EXERTION Procedure This was a 2D Doppler, Color Flow transthoracic echocardiogram. Exam performed in department. Left Ventricle Normal LV size. Left ventricular systolic function is normal. The estimated ejection fraction is 60 %. Stage 1 diastolic dysfunction. No regional wall motion abnormalities noted. Right Ventricle Normal RV size. Normal systolic function. Atria Normal left atrium. Normal right atrium. Mitral Valve There is mild to moderate mitral annular calcification. Tricuspid Valve Normal tricuspid valve. Mild (1+) tricuspid valve insufficiency. Pulmonary artery systolic pressure is 28 mmHg. Aortic Valve Trisinus/trileaflet aortic valve. Pulmonic Valve Normal pulmonic valve. Great Vessels Normal aortic root. The pulmonary artery is normal size. Normal inferior vena cava. Pericardium/Pleural No pericardial effusion. MMode/2D Measurements & Calculations LVIDd: 5.1 cm IVSd: 0.81 cm LVOT diam: 2.0 cm LVIDs: 3.2 cm LVPWd: 0.90 cm LVOT area: 3.2 cm2 RVDd: 3.0 cm FS: 37.6 % Ao root diam: 3.0 cm LAV(MOD-bp): 46.5 ml LA A4 area: 15.4 cm2 LAV(MOD-bp) Indexed: 28.3 ml/m2 LAV(MOD-sp2): 44.5 ml LAV(MOD-sp4): 44.8 ml LA dimension(2D): 3.9 cm RA A4 area: 7.9 cm2 Time Measurements MV dec time: 0.19 sec Doppler Measurements & Calculations MV E max jarad: 52.4 cm/sec Lat Peak E' Jarad: 4.8 cm/sec Med Peak E' Jarad: 4.3 cm/sec MV A max jarad: 97.0 cm/sec E/E' lat: 10.8 E/E' med: 12.1 MV E/A: 0.54 Ao V2 max: 134.2 cm/sec LV V1 max: 83.9 cm/sec PA V2 max: 74.9 cm/sec Ao max P.2 mmHg LV V1 max P.8 mmHg ALESSANDRO(V,D): 2.0 cm2 TR max jarad: 241.6 cm/sec TR max P.4 mmHg ECHO/Echo Complete Interpretation Summary Normal LV size. Left ventricular systolic function is normal. The estimated ejection fraction is 60 %. Stage 1 diastolic dysfunction. Pulmonary artery systolic pressure is 28 mmHg. Ordering Physician: Nona Martel Referring Physician: Margaret Hwang Performed By: Soha Quan, ALYCIA, RVT
== END ==
PROVIDERS: PCP Internal Medicine; Referring Provider Nurse Practitioner Gerontology; Visit Provider Nurse Practitioner Gerontology
DX: R06.00 Dyspnea, unspecified (principal)
CPT/HCPCS: 93306

== ENCOUNTER 2021-11-10 10:43 | Outpatient (CLI) | payer MEDICARE, SELFPAY | END 2021-11-10 23:59 | disposition short-term general hospital (02) | LOC: LABSPEC 10:43 | PROVIDERS: PCP Internal Medicine; Visit Provider Physician Assistant | DX: U07.1 COVID-19 (principal) | CPT/HCPCS: 87635; U0003; U0005 ==

== ENCOUNTER → 2023-07-26 | Outpatient (CLI) | payer MEDICARE, SELFPAY ==
--- NOTE | 2023-07-26 14:50 | CDU_ITS ---
Reason For Study: BLE Carotid Artery Disease Rt. Velocities/BP Lt. Velocities/BP Prox CCA 89.1/14.5 cm/sec. Prox CCA 101.6/15.7 cm/sec. Mid CCA 62.1/10.6 cm/sec. Mid CCA 86.9/15.7 cm/sec. Dist CCA 70.7/13.0 cm/sec. Dist CCA 66.8/13.9 cm/sec. Prox ICA 63.4/11.8 cm/sec. Prox ICA 92.4/19.4 cm/sec. Mid ICA 80.6/22.8 cm/sec. Mid ICA 86.1/26.4 cm/sec. Dist ICA 86.7/22.8 cm/sec. Dist ICA 87.5/25.0 cm/sec. Rt. ICA/CCA = 1.4. Lt. ICA/CCA = 1.1. Prox ECA 97.9/7.9 cm/sec. Prox ECA 134.4/4.7 cm/sec. Rt. Vert. 132.6/24.8 cm/sec. Lt. Vert. 96.1/17.5 cm/sec. Right Extracranial There is heterogeneous, irregular atherosclerotic plaque noted in the right common carotid artery. There is heterogeneous, irregular atherosclerotic plaque noted in the right internal carotid artery. There is heterogeneous, irregular atherosclerotic plaque noted in the right external carotid artery. Antegrade flow is noted in the right vertebral artery. Left Extracranial There is homogeneous, smooth atherosclerotic plaque noted in the left common carotid artery. There is heterogeneous, irregular atherosclerotic plaque noted in the left internal carotid artery. There is heterogeneous, irregular atherosclerotic plaque noted in the left external carotid artery. Antegrade flow is noted in the left vertebral artery. Procedure Carotid Duplex 71398. This is a Carotid Duplex examination using B-mode, color flow and specral Doppler. The exam was diagnostic. Exam performed in department. VL/Carotid Duplex Ultrasound Interpretation Summary Mild (<50%) stenosis right extracranial internal carotid. Mild (<50%) stenosis left extracranial internal carotid. Patent and antegrade vertebrals bilaterally. Ordering Physician: Nona Martel Referring Physician: Margaret Hwang Performed By: William Pichardo RVT
== END | disposition home or self-care (01) ==
LOC: CVS 14:49
PROVIDERS: PCP Internal Medicine; Referring Provider Nurse Practitioner Gerontology; Visit Provider Nurse Practitioner Gerontology
DX: R09.89 Other specified symptoms and signs involving the circulatory and respiratory systems (principal); I77.9 Disorder of arteries and arterioles, unspecified
CPT/HCPCS: 93880

== ENCOUNTER 2023-09-25 12:14 | Emergency (ER) | payer MEDICARE, SELFPAY ==
[2023-09-25 12:15] VITALS: BP 141/79; PULSE 66; RESP 14; TEMP 36.8; O2SAT 98
[2023-09-25 12:17] VITALS: BMI 29.8
--- NOTE | 2023-09-25 14:26 | EX.ED.DYSGE1 ---
HPI History of Present Illness Chief Complaint: Nausea/Vomiting/Diarrhea Informant: patient Onset/Context/Timing Onset: Weeks Context: Gradual Onset Timing: Waxes and wanes Quality: Weakness Location: Generalized Worsened by: Nothing Relieved by: Nothing Narrative Narrative: Patient presents with nausea, vomiting, and diarrhea that has been constant for the past few weeks. Patient states her diarrhea is watery and loose. Patient denies any melena or hematochezia. Patient denies any abdominal pain. Patient states she has been able to keep some liquids and crackers down. Patient denies any hematemesis or coffee-ground emesis. Patient admits to some urinary frequency. Patient states nothing makes her symptoms better nothing makes them worse. Patient admits to a decreased appetite. [facility] Medical History Anemia Atherosclerosis of [place] coronary artery of [place] heart without angina pectoris (02/2011) Diverticulosis Essential (primary) hypertension Hyperlipidemia Obesity Old inferior wall myocardial infarction Type 2 diabetes mellitus Home Medications atorvastatin 40 mg tablet 40 mg PO QHS 07/12/15 [History Last Taken Unknown] metformin 1,000 mg tablet 1,000 mg PO BIDCM 07/12/15 [History Last Taken Unknown] metoprolol tartrate 50 mg tablet 50 mg PO BID 07/12/15 [History Last Taken Unknown] coenzyme Q10 200 mg capsule 200 mg PO QDAY 06/25/18 [History Last Taken Unknown] losartan 25 mg tablet 25 mg PO QDAY 06/25/18 [History Last Taken Unknown] nitroglycerin 0.4 mg sublingual tablet 0.4 mg sublingual Q5-15M PRN chest pain #25 tabs 06/25/18 [Rx Last Taken Unknown] vitamin B complex (B Complex-Vitamin B12 tablet) 1 tab PO QDAY 06/25/18 [History Last Taken Unknown] ascorbic acid (vitamin C) 500 mg capsule mg PO 06/11/19 [History Last Taken Unknown] biotin 5 mg capsule 5 mg PO DAILY 06/11/19 [History Last Taken Unknown] lysine 500 mg tablet 500 mg PO DAILY 06/11/19 [History Last Taken Unknown] dulaglutide 0.75 mg/0.5 mL subcutaneous pen injector (Trulicity) 1.5 mg subcut QWEEK 06/24/21 [History Last Taken Unknown] glimepiride 4 mg tablet 4 mg PO DAILY 07/19/22 [History Last Taken Unknown] Lactobacillus acidophilus 100 million cell capsule 10 mg PO .3xweek 07/19/23 [History Last Taken Unknown] insulin detemir U-100 100 unit/mL (3 mL) subcutaneous pen (Levemir FlexPen) 24 unit subcut QHS 07/19/23 [History Last Taken Unknown] magnesium oxide 400 mg PO .3xweek 07/19/23 [History Last Taken Unknown] cephalexin 500 mg capsule 500 mg PO Q6 #20 CAPSULES 09/25/23 [Rx Last Taken Unknown] Allergy/AdvReac Type Severity Reaction Status Date / Time ciprofloxacin [From Cipro] Allergy Swelling Verified 09/25/23 12:15 ciprofloxacin HCl Allergy Swelling Verified 09/25/23 12:15 [From Cipro] ramipril [From Altace] AdvReac Other Verified 09/25/23 12:15 Family History Brother CAD (coronary artery disease) CABG in his 40's Diabetes Surgical History History of appendectomy History of coronary artery stent placement (02/2011) History of hand surgery Hx of cholecystectomy Social History Smoking Status: Never smoker ROS ROS ED Constitutional Constitutional ED: Reports chills and subjective; Denies fever(s) Eyes Eyes: Denies blurry vision or change in vision ENT ENT ED: Denies rhinorrhea or sore throat Cardiovascular Cardiovascular: Denies chest pain or palpitations Respiratory/Chest Respiratory/Chest: Reports dyspnea; Denies cough Gastrointestinal Gastrointestinal: Reports abdominal pain, diarrhea, nausea and vomiting; Denies melena Genitourinary Genitourinary ED: Denies dysuria or hematuria Musculoskeletal Musculoskeletal: Reports back pain; Denies neck pain Integumentary Denies abscess or rash Neurologic Neurologic: Denies headache(s) or weakness Allergic/Immunologic Allergic/Immunologic ED: Denies mouth swelling or urticaria EXAM Physical Exam Const Vital Signs: 09/25/23 12:15 09/25/23 15:15 09/25/23 16:45 Temperature 98.2 F Temperature Source Temporal Pulse Rate 66 60 69 Respiratory Rate 14 18 15 Blood Pressure 141/79 H 141/54 H 155/62 H Blood Pressure Mean 99 83 93 Pulse Ox 98 100 100 Oxygen Delivery Method Room Air Room Air Room Air 09/25/23 17:22 Temperature Temperature Source Pulse Rate 80 Respiratory Rate 14 Blood Pressure 114/47 L Blood Pressure Mean 69 Pulse Ox 96 Oxygen Delivery Method Room Air Positive well nourished and well developed General Appearance ED: well developed and NAD HEENT Reports moist mucous membranes Neck supple and no JVD Resp normal respiratory effort and clear to auscultation bilaterally Cardio regular rate and regular rhythm GI non-distended Palpation: soft and tender epigastric, LLQ, RLQ, LUQ, RUQ, periumbilical and suprapubic; Negative for guarding or rebound tenderness present Neuro oriented x3, CN's II-XII intact bilaterally and no sensory deficits noted Sensorium / Orientation: alert Motor Exam: strength 5/5 throughout Psych mental status grossly normal MDM MDM MDM Narrative Medical decision making narrative: Differential diagnosis includes dehydration, electrolyte abnormality, urinary tract infection, DKA, cardiac dysrhythmia, cardiac ischemia, pneumonia, pneumothorax, and viral illness. EKG will be obtained to assess for cardiac dysrhythmia and cardiac ischemia. Chest x-ray will be obtained to assess for pneumonia and pneumothorax. CBC will be obtained to assess for leukocytosis and anemia. Comprehensive metabolic profile will be obtained to assess for hepatic function, renal function, and electrolyte abnormality. Lipase will be obtained to assess for pancreatitis. Urinalysis will be obtained to assess for urinary tract infection. High-sensitivity troponin will be obtained to assess for cardiac ischemia. Lab Data Attestation: I reviewed the patient's lab results. Lab results narrative: She was reviewed. There is a slight leukocytosis of 12.2. Hemoglobin was 10.1 and hematocrit was 31.0. Platelets were normal. Comprehensive metabolic profile was reviewed. Glucose was slightly elevated at 177. Remainder was essentially within normal limits. High-sensitivity troponin was reviewed and was normal at 8. Urinalysis was reviewed. Leukocyte esterase was 500 with positive nitrates and 25-50 white blood cells. There is 1+ bacteria. COVID-19 rapid antigen was reviewed and was negative. Influenza A and influenza B antigens were reviewed and were negative. Labs: Laboratory Results - last 24 hr 09/25/23 09/25/23 14:45 15:40 WBC 12.2 H RBC 3.76 L Hgb 10.1 L Hct 31.0 L MCV 82.4 MCH 26.9 L MCHC 32.6 RDW Std Deviation 44.3 H RDW Coeff of Tiana 14.7 H Plt Count 230 MPV 10.5 Immature Gran % (Auto) 0.300 Neut % (Auto) 77.7 H Lymph % (Auto) 10.9 L [place] % (Auto) 5.4 Eos % (Auto) 4.8 Baso % (Auto) 0.9 Absolute Neuts (auto) 9.4 H Absolute Lymphs (auto) 1.33 Nucleated RBC % 0 Sodium 137 Potassium 4.2 Chloride 109 H Carbon Dioxide 21.0 Anion Gap 7 BUN 13 Creatinine 0.96 Est GFR (MDRD) Af Amer 73 Est GFR (MDRD) Non-Af 60 BUN/Creatinine Ratio 13.6 Glucose 177 H Calcium 9.9 Total Bilirubin 0.30 AST 21 ALT 32 Alkaline Phosphatase 154 H Troponin I High Sens 8 Total Protein 6.6 Albumin 2.6 L Globulin 4.0 Albumin/Globulin Ratio 0.6 L Lipase 12 L Urine Color Yellow Urine Clarity Sl. Cloudy Urine pH 6.0 Ur Specific [place] 1.010 Urine Protein 30 H Urine Glucose (UA) Normal Urine Ketones 5 H Urine Occult Blood 10 H Urine Nitrite Positive H Urine Bilirubin Negative Urine Urobilinogen Normal Ur Leukocyte Esterase 500 H Urine RBC 0-5 SEEN Urine WBC 25-50 SEEN Ur Squamous Epith Cells 0-5 SEEN Urine Bacteria 1+ Urine Mucus 0 SEEN Radiography Chest X-Ray - ED: 2 View, Read by ED Physician, Read by Radiologist and No Acute Disease Diagnostic Testing: Clinical Impression(s) from Imaging Studies Chest X-Ray 09/25/23 14:58 IMPRESSION: No interval change and no acute or active cardiopulmonary disease. Electronically Signed: Bernard Espitia MD at 15:17 EST , PA and lateral chest x-ray was obtained. There are 2 views. On my independent interpretation, lung turner are clear. There is normal cardiac silhouette. Bony thorax is normal. There is no acute process noted. Radiologist also interpreted the x-ray and agrees. EKG Initial EKG: Attestation: I personally reviewed and interpreted this EKG as follows: Interpretation: Sinus Bradycardia (58) Comments: EKG was obtained. On my independent interpretation, it showed a bradycardia with a rate of 58. AR interval, QRS interval, and QTc intervals were all normal. [place] was normal. There are no acute ST or T wave changes. Prior EKG tracings: available for review Prior: Unchanged (07/20/2020) Treatment and Re-Evaluation :: Patient was given IV fluids and Zofran. Patient was advised of her findings. Urine culture was ordered. Patient was given a dose of Rocephin. Patient was able to ambulate here in the emergency department without difficulty. Patient is able to be discharged. Patient was given a prescription for Keflex. Patient was instructed to follow-up with her primary care physician in 5 to 7 days. Patient understood and was agreeable with the plan. All questions were answered. Discharge Plan Triage Chief Complaint: Nausea/Vomiting/Diarrhea ED Provider: Brian Segura Dx/Rx/DC Orders Clinical Impression: Urinary tract infection, Essential (primary) hypertension, Type 2 diabetes mellitus Instructions: ED Cystitis Female Adult Prescriptions: New cephalexin [cephalexin] 500 mg capsule 500 mg PO Q6 Qty: 20 0RF No Action losartan 25 mg tablet 25 mg PO QDAY vitamin B complex [B Complex-Vitamin B12] tablet 1 tab PO QDAY coenzyme Q10 200 mg capsule 200 mg PO QDAY nitroglycerin 0.4 mg tablet, sublingual 0.4 mg SUBLINGUAL Q5-15M PRN (Reason: chest pain) Qty: 25 3RF Rx Instructions: until response; do not exceed 3 doses per episode biotin 5 mg capsule 5 mg PO DAILY lysine 500 mg tablet 500 mg PO DAILY ascorbic acid (vitamin C) 500 mg capsule PO Lactobacillus acidophilus 100 million cell capsule 10 mg PO .3xweek magnesium oxide 400 mg magnesium capsule 400 mg PO .3xweek Trulicity 0.75 mg/0.5 mL pen injector 1.5 mg SC QWEEK Levemir FlexPen 100 unit/mL (3 mL) insulin pen 24 unit subcut QHS atorvastatin 40 MG tablet 40 mg PO QHS metformin 1,000 MG tablet 1,000 mg PO BIDCM metoprolol tartrate 50 MG tablet 50 mg PO BID glimepiride 4 mg tablet 4 mg PO DAILY Patient Comments: one tablet in am and one half tablet in PM Primary Care Provider: Margaret Hwang Referrals: Margaret Hwang MD [Primary Care Provider] - Disposition Disposition: Home, Self Care Discharge Date/Time: 09/25/23 17:23
[2023-09-25 14:31] VITALS: BMI 29.8
[2023-09-25] MEDS: Ondansetron 4 MG/2 ML Vial IV (14:51)
[2023-09-25] MEDS: 0.9% Normal Saline (1000mL) 1,000 ML 1000 ML IV (14:51)
[2023-09-25 14:52] LABS: Absolute Lymphocyte Count 1.33 X10^3/uL (0.83-4.51); Absolute Neutrophil Count 9.4 X10^3/uL (2.0-7.7); Basophil# 0.11 X10^3/uL; Basophil% 0.9 % (0-1); Eosinophil# 0.59 X10^3/uL; Eosinophils% 4.8 % (0-5); Hemoglobin 10.1 g/dL (12.0-15.0); Lymphocyte # 1.33 X10^3/ul (0.83-4.51); Lymphocyte % 10.9 % (19-41); Mean Corp Hgb Conc 32.6 g/dL (32-36); Mean Corpuscular Hgb 26.9 pg (27.0-32.0); Mean Corpuscular Volume 82.4 fL (81-99); Mean Platelet Vol. 10.5 fl (6.2-12.0); Monocyte# 0.66 X10^3/uL; Monocyte% 5.4 % (0-10); NRBC Flagged by Analyzer 0 % (0-5); Neutrophil # 9.44 X10^3/uL (2.7-7.7); Neutrophil % 77.7 % (47-70); Platelet Count 230 K/mm3 (150-450); RBC Distribution Width CV 14.7 % (11.6-14.6); RBC Distribution Width SD 44.3 fl (35.1-43.9); Red Blood Count 3.76 M/mm3 (4.2-5.4); White Blood Count 12.2 K/mm3 (4.4-11.0)
--- NOTE | 2023-09-25 14:58 | RAD_ITS ---
STUDY: X-RAY CHEST REASON FOR EXAM: Female, 73 years old. Dyspnea. TECHNIQUE: Frontal and lateral views of the chest. COMPARISON: December 2015. FINDINGS: The lungs are clear and expanded. There is no demonstrated pleural abnormality. Normal size heart. Normal mediastinum and vira. Normal visualized pulmonary arteries. Normal visualized aortic arch and descending thoracic aorta. Normal visualized thoracic spine. Normal visualized ribs, clavicles, and shoulders. No abnormality of the visualized soft tissue structures of the upper abdomen. RAD/Chest PA and Lateral IMPRESSION: No interval change and no acute or active cardiopulmonary disease. Electronically Signed: Bernard Espitia MD at 15:17 EST ,
[2023-09-25 15:11] LABS: ALB/GLOB Ratio 0.6 RATIO (0.9-2.4); AST(SGOT) 21 U/L (15-37); Alanine Aminotransfer ALT/SGPT 32 U/L (13-56); Albumin, Serum 2.6 g/dL (3.2-5.0); Alkaline Phosphatase 154 U/L (45-117); Anion Gap 7 (5-15); BUN 13 mg/dL (7-18); BUN/Creat Ratio 13.6 RATIO (10-20); Calcium,Total 9.9 mg/dL (8.5-10.1); Chloride 109 mmol/L (98-107); Creatinine, Serum 0.96 mg/dL (0.55-1.02); EST Glomerular Filtration Rate 60 mL/min (>60); Est Glom Filt Rate - Afr Amer 73 mL/min (>60); Glucose 177 mg/dL (74-106); Lipase 12 U/L (13-75); Potassium 4.2 mmol/L (3.5-5.1); Protein, Total 6.6 g/dL (6.4-8.2); Sodium Level 137 mmol/L (136-145); Troponin-I HS 8 pg/mL (3.0-54.0)
[2023-09-25 15:15] VITALS: BP 141/54; PULSE 60; RESP 18; O2SAT 100
[2023-09-25 15:45] LABS: Mucous, Urine 0 SEEN /hpf (<or=2+)
[2023-09-25 15:50] LABS: Color, Urine Yellow (Yellow); Glucose, Dipstick Normal (Normal); Ketone-Dipstick 5 mg/dl (Negative); Leukocyte Esterase-Dipstick 500 /ul (Negative); Nitrite-Dipstick Positive (Negative); Occult Blood-Urine 10 /ul (Negative); Protein-Dipstick 30 mg/dl (Negative); Urine Bilirubin Dipstick Negative (Negative); Urine Clarity Sl. Cloudy (Clear); Urine Urobilinogen Normal (Normal)
[2023-09-25 15:56] LABS: Red Blood Cells-Urine 0-5 SEEN /hpf (0-5); White Blood Cells 25-50 SEEN /hpf (0-5)
[2023-09-25 15:57] LABS: Bacteria 1+ /hpf (None Seen); Squamous Epithelial Cells - UA 0-5 SEEN /hpf (5-10)
[2023-09-25] MEDS: Ceftriaxone 1 GM/50 ML BAG IV (16:22)
[2023-09-25 16:44] VITALS: O2SAT 99
[2023-09-25 16:45] VITALS: BP 155/62; PULSE 69; RESP 15; O2SAT 100
[2023-09-25 17:22] VITALS: BP 114/47; PULSE 80; RESP 14; O2SAT 96
== END 2023-09-25 17:23 | disposition home or self-care (01) ==
PROVIDERS: Emergency Provider Emergency Medicine; PCP Internal Medicine; Visit Provider Emergency Medicine
DX: N39.0 Urinary tract infection, site not specified (principal); E11.9 Type 2 diabetes mellitus without complications; Z79.4 Long term (current) use of insulin; I10 Essential (primary) hypertension; I25.10 Atherosclerotic heart disease of native coronary artery without angina pectoris; E78.5 Hyperlipidemia, unspecified; R11.2 Nausea with vomiting, unspecified; Z79.899 Other long term (current) drug therapy; Z79.84 Long term (current) use of oral hypoglycemic drugs; I25.2 Old myocardial infarction; Z79.85 Long-term (current) use of injectable non-insulin antidiabetic drugs; Z90.49 Acquired absence of other specified parts of digestive tract; Z95.5 Presence of coronary angioplasty implant and graft
CPT/HCPCS: 71046; 80053; 81001; 83690; 84484; 85025; 87077; 87086; 87088; 87186; 87428; 93005; 96361; 96365; 96375; 99284; J7030; A4216; J2405

== ENCOUNTER 2023-10-02 16:31 | Observation (INO) | payer MEDICARE, SELFPAY ==
[2023-10-02 16:33] VITALS: BP 132/62; PULSE 63; RESP 18; TEMP 36.7; O2SAT 100; BMI 29.4
--- NOTE | 2023-10-02 17:04 | EDS_ITS ---
HPI History of Present Illness Chief Complaint: Abd Pain Informant: patient Narrative Narrative: Sent in here from PCP but with Dr. Jasso prior to arrival. She was in the office today for follow-up after being seen in the ED a week ago. She reports intermittent diarrhea for the past month had vomiting prior. None currently. No nausea. Today stool states pasty, nonbloody or tarry. No melena. Occasional abdominal discomfort. Cholecystectomy in the past. She was treated for UTI a week ago on Keflex and she finished this. She still has urine frequency. No fevers or chills. PCP concern 23 pound weight loss over the past month. Reports hemoglobin was low when she was in the ED and she appeared more pale. She is having leg swelling over the past 3 to 4 days. No dyspnea or orthopnea. History of [facility] coronary disease stenting back in 2008. 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 myocardial infarction Type 2 diabetes mellitus Home Medications atorvastatin 40 mg tablet 40 mg PO QHS 07/12/15 [History Last Taken 10/01/23] metformin 1,000 mg tablet 1,000 mg PO BIDCM 07/12/15 [History Last Taken 10/02/23] metoprolol tartrate 50 mg tablet 50 mg PO BID 07/12/15 [History Last Taken 10/02/23] losartan 25 mg tablet 25 mg PO QDAY 06/25/18 [History Last Taken 10/02/23] nitroglycerin 0.4 mg sublingual tablet 0.4 mg sublingual Q5-15M PRN chest pain #25 tabs 06/25/18 [Rx Last Taken Unknown] dulaglutide 0.75 mg/0.5 mL subcutaneous pen injector (Trulicity) 1.5 mg subcut QWEEK 06/24/21 [History Last Taken 09/30/23] Lactobacillus acidophilus 100 million cell capsule 10 mg PO .3xweek 07/19/23 [History Last Taken 10/02/23] insulin detemir U-100 100 unit/mL (3 mL) subcutaneous pen (Levemir FlexPen) 24 unit subcut DAILY 07/19/23 [History Last Taken Unknown] baclofen 10 mg tablet 10 mg PO DAILY PRN muscle spasm 10/02/23 [History Last Taken Unknown] glipizide 10 mg tablet 10 mg PO BID 10/02/23 [History Last Taken 10/02/23] omeprazole 40 mg capsule,delayed release 40 mg PO DAILY 10/02/23 [History Last Taken 10/02/23] oxycodone-acetaminophen 5 mg-325 mg tablet 1 tab PO DAILY PRN pain 10/02/23 [History Last Taken 09/28/23] Allergy/AdvReac Type Severity Reaction Status Date / Time ciprofloxacin [From Cipro] Allergy Swelling Verified 10/02/23 16:33 ciprofloxacin HCl Allergy Swelling Verified 10/02/23 16:33 [From Cipro] ramipril [From Altace] AdvReac Other Verified 10/02/23 16:33 Family History Brother CAD (coronary artery disease) CABG in his 40's Diabetes Surgical History History of appendectomy History of coronary artery stent placement (02/2011) History of hand surgery Hx of cholecystectomy Social History Smoking Status: Never smoker ROS ROS ED Constitutional Constitutional ED: Denies chills, fever(s) or sweats Eyes Eyes: Denies change in vision ENT ENT ED: Denies dysphagia or sore throat Cardiovascular Cardiovascular: Reports leg edema; Denies chest pain, palpitations or racing heartbeat Respiratory/Chest Respiratory/Chest: Denies cough, dyspnea or dyspnea on exertion Gastrointestinal Gastrointestinal: Reports abdominal pain and diarrhea; Denies nausea or vomiting Genitourinary Genitourinary ED: Reports urinary frequency; Denies dysuria or hematuria Musculoskeletal Musculoskeletal: Denies back pain, extremity pain or neck pain Integumentary Denies rash or wounds Neurologic Neurologic: Denies headache(s), paresthesias or weakness EXAM Physical Exam Const Vital Signs: 10/02/23 16:33 10/02/23 19:10 Temperature 98.1 F 98.1 F Temperature Source Temporal Pulse Rate 63 82 Respiratory Rate 18 18 Blood Pressure 132/62 H 163/67 H Blood Pressure Mean 85 99 Pulse Ox 100 98 Oxygen Delivery Method Room Air Positive well nourished and well developed General Appearance ED: well developed and NAD HEENT Reports moist mucous membranes normocephalic and atraumatic Eyes PERRL, EOMs intact bilaterally and conjunctivae normal General Eye ED: Yes normal appearance of both eyes Neck no lymphadenopathy and supple General: Negative for tenderness Chest Wall Chest: Negative for tenderness Resp normal respiratory effort and normal air movement Effort and Inspection: symmetric chest movement; Negative for respiratory distress Cardio regular rate, regular rhythm and no murmurs Peripheral Pulses: pulses 2+ throughout GI normal to inspection, nondistended, normoactive bowel sounds and non-tender GI Narrative: Negative Hicks's or McBurney's tenderness. Palpation: Negative for guarding or rebound tenderness present Back/Spine no CVA tenderness and no thoracic nor lumbar tenderness Extremity normal to inspection Extremity Narrative: Mild edema lower extremities. General Extremety ED: Yes edema; Negative for tenderness General Extremity: edema Neuro oriented x3 and no sensory deficits noted Sensorium / Orientation: awake and alert Skin no rashes or lesions noted and no wounds MDM MDM MDM Narrative Medical decision making narrative: Interventions / MDM: Differential diagnosis: Cancer, dehydration, electrolyte abnormalities Diagnosis considered but do not suspect: N/A My EKG interpretation: N/A Imaging independently reviewed and interpreted by myself: N/A External documents reviewed: N/A Test considered but not ordered:N/A ED course: Patient nontoxic vitals are stable intermittent diarrhea and abdominal pain with a nonsurgical abdomen. However reported by PCP unintentional weight loss over the past month. She was started on fluids, abdominal labs ordered, CT scan ordered for further evaluation. Labs increasing leukocytes doses for team hemoglobin 10 which is stable from her labs a week ago. Creatinine slightly elevated at 1.1 BUN 23. Normal electrolytes. 184: CT scan discussion with radiologist concerns for metastatic pancreas cancer into the liver with pulmonary nodules. She is seen Dr. Centeno in the past for blood issues. I discussed with him, he requests to try to bring in the hospital for biopsy potential liver region. Patient agreed to this. I did discuss with her PCP Dr. Jasso to update. Will plan to discuss with hospital service for admission. Re-evaluation: stable Disposition discussed with patient/family/significant other: Patient Case discussed with consulting clinician: Oncology, hospitalist This note was generated with Dragon dictation software. It may contain incorrect words, spelling, and punctuation that were not noted in checking the note before signing. Lab Data Attestation: I reviewed the patient's lab results. Labs: Laboratory Results - last 24 hr 10/02/23 10/02/23 17:18 18:30 WBC 16.5 H RBC 3.83 L Hgb 10.0 L Hct 32.0 L MCV 83.6 MCH 26.1 L MCHC 31.3 L RDW Std Deviation 43.9 RDW Coeff of [place]iana 14.6 Plt Count 225 MPV 10.9 Immature Gran % (Auto) 0.500 Neut % (Auto) 80.0 H Lymph % (Auto) 8.4 L [place] % (Auto) 5.0 Eos % (Auto) 5.4 H Baso % (Auto) 0.7 Absolute Neuts (auto) 13.2 H Absolute Lymphs (auto) 1.39 Nucleated RBC % 0 Sodium 138 Potassium 4.4 Chloride 108 H Carbon Dioxide 22.0 Anion Gap 8 BUN 23 H Creatinine 1.11 H Estim Creat Clear Calc 42.65 Est GFR (MDRD) Af Amer 62 Est GFR (MDRD) Non-Af 51 L BUN/Creatinine Ratio 20.7 H Glucose 213 H Calcium 10.2 H Total Bilirubin 0.30 AST 27 ALT 29 Alkaline Phosphatase 155 H Total Protein 6.8 Albumin 2.7 L Globulin 4.1 Albumin/Globulin Ratio 0.7 L Lipase 24 Urine Color Yellow Urine Clarity Clear Urine pH 6.0 Ur Specific [place] 1.010 Urine Protein 30 H Urine Glucose (UA) 50 H Urine Ketones 15 H Urine Occult Blood Negative Urine Nitrite Negative Urine Bilirubin Negative Urine Urobilinogen Normal Ur Leukocyte Esterase 100 H Urine RBC 0 SEEN Urine WBC 5-10 SEEN Ur Squamous Epith Cells 0 SEEN Urine Bacteria 0 SEEN Urine Mucus 0 SEEN Radiography Diagnostic Testing: Clinical Impression(s) from Imaging Studies Abdomen/Pelvis CT 10/02/23 17:50 IMPRESSION: Large pancreatic mass with multiple masses in the liver consistent with metastatic pancreatic cancer. Multiple small pulmonary nodules with possible metastatic disease. Electronically Signed: Avi Coyne MD at 18:21 EST , ADDENDUM: 10/02/23 1849 IMPRESSION: Large pancreatic mass with multiple masses in the liver consistent with metastatic pancreatic cancer. Multiple small pulmonary nodules with possible metastatic disease. N.B. : The above Results were Read Back by Avi Coyne MD to Aleksandar Sher DO, and understanding confirmed on 10/02/2023 18:42:44 (ET). Electronically Signed: Avi Coyne MD at 18:21 EST , Discharge Plan Dx/Rx/DC Orders Clinical Impression: Metastasis from pancreatic cancer, Anemia, Leukocytosis Disposition Disposition: Acute Care Hospital [facility] [place] Discharge Date/Time: 10/02/23 20:14
[2023-10-02] MEDS: 0.9% Normal Saline (1000mL) 1,000 ML 1000 ML IV (17:18)
[2023-10-02 17:24] LABS: Absolute Lymphocyte Count 1.39 X10^3/uL (0.83-4.51); Absolute Neutrophil Count 13.2 X10^3/uL (2.0-7.7); Basophil# 0.11 X10^3/uL; Basophil% 0.7 % (0-1); Eosinophils% 5.4 % (0-5); Lymphocyte # 1.39 X10^3/ul (0.83-4.51); Lymphocyte % 8.4 % (19-41); Mean Corp Hgb Conc 31.3 g/dL (32-36); Mean Corpuscular Hgb 26.1 pg (27.0-32.0); Mean Corpuscular Volume 83.6 fL (81-99); Mean Platelet Vol. 10.9 fl (6.2-12.0); Monocyte# 0.83 X10^3/uL; NRBC Flagged by Analyzer 0 % (0-5); Neutrophil # 13.22 X10^3/uL (2.7-7.7); Platelet Count 225 K/mm3 (150-450); RBC Distribution Width CV 14.6 % (11.6-14.6); RBC Distribution Width SD 43.9 fl (35.1-43.9); Red Blood Count 3.83 M/mm3 (4.2-5.4); White Blood Count 16.5 K/mm3 (4.4-11.0)
[2023-10-02 17:41] LABS: ALB/GLOB Ratio 0.7 RATIO (0.9-2.4); AST(SGOT) 27 U/L (15-37); Alanine Aminotransfer ALT/SGPT 29 U/L (13-56); Albumin, Serum 2.7 g/dL (3.2-5.0); Alkaline Phosphatase 155 U/L (45-117); Anion Gap 8 (5-15); BUN 23 mg/dL (7-18); BUN/Creat Ratio 20.7 RATIO (10-20); Calcium,Total 10.2 mg/dL (8.5-10.1); Chloride 108 mmol/L (98-107); Creatinine, Serum 1.11 mg/dL (0.55-1.02); EST Glomerular Filtration Rate 51 mL/min (>60); Est Glom Filt Rate - Afr Amer 62 mL/min (>60); Estimated Creatinine Clearance 42.65 ml/min; Globulin 4.1 g/dL (2.2-4.2); Glucose 213 mg/dL (74-106); Lipase 24 U/L (13-75); Potassium 4.4 mmol/L (3.5-5.1); Protein, Total 6.8 g/dL (6.4-8.2); Sodium Level 138 mmol/L (136-145)
--- NOTE | 2023-10-02 17:50 | CT_ITS ---
We are attempting to reach an attending provider to discuss findings. An addendum with communication details will be sent when the communication is complete. STUDY: CT ABDOMEN AND PELVIS WITH CONTRAST REASON FOR EXAM: Female, 73 years old. Diarrhea -- recent weight loss 23lbs in 1 month RADIATION DOSAGE (If Supplied By Facility): CTDIvol = ( 15.46 ) mGy, DLP = ( 810.04 ) mGycm TECHNIQUE: Transaxial images were obtained from the dome of the diaphragm to the symphysis pubis without oral contrast. IV 100mL Isovue-300 was administered. Sagittal and coronal images were reconstructed. Individualized dose optimization techniques were used for this CT. COMPARISON: None. FINDINGS: There are at least 5 pulmonary nodules measuring less than 1.0 cm. There are coronary artery calcifications. There are multiple, greater than 10, diminished density enhancing masses throughout the liver measuring up to 4.8 cm. There is non-visualization of the gallbladder, which may be secondary to either contraction or a prior cholecystectomy. Normal spleen. There is heterogeneous density enhancing mass involving the neck and body of the pancreas measuring at least 8.1 x 5.6 cm. There is probable occlusion of the splenic vein. Normal bilateral adrenal glands. There is small cyst of the right kidney. Central calcifications of the kidneys could be vascular or urinary. There is no hydronephrosis. Normal visualized stomach. Normal small intestine. Normal colon. There is non-visualization of the appendix. There is diffuse atherosclerotic calcification of the abdominal aorta and branches, without a demonstrated aneurysm. Normal inferior vena cava. Normal retroperitoneum. There is wall thickening of the urinary bladder. Normal visualized uterus. There is no free fluid in the abdomen or pelvis. Normal abdominal wall. There is degenerative and postoperative change of the spine. There is spondylolisthesis at L4-5 and L5-S1. CT/Abdomen/Pelvis W IV Cont ONLY IMPRESSION: Large pancreatic mass with multiple masses in the liver consistent with metastatic pancreatic cancer. Multiple small pulmonary nodules with possible metastatic disease. Electronically Signed: Avi Coyne MD at 18:21 EST ,
[2023-10-02 18:36] LABS: Bacteria 0 SEEN /hpf (None Seen); Mucous, Urine 0 SEEN /hpf (<or=2+); Red Blood Cells-Urine 0 SEEN /hpf (0-5); Squamous Epithelial Cells - UA 0 SEEN /hpf (5-10)
[2023-10-02 18:43] LABS: Color, Urine Yellow (Yellow); Glucose, Dipstick 50 mg/dl (Normal); Ketone-Dipstick 15 mg/dl (Negative); Leukocyte Esterase-Dipstick 100 /ul (Negative); Nitrite-Dipstick Negative (Negative); Occult Blood-Urine Negative /ul (Negative); Protein-Dipstick 30 mg/dl (Negative); Urine Bilirubin Dipstick Negative (Negative); Urine Clarity Clear (Clear); Urine Urobilinogen Normal (Normal)
--- NOTE | 2023-10-02 18:49 | ED.RN ---
called pt's son Marc to ask him and any other family members who want to come to the ED to discuss POC.
[2023-10-02 18:51] LABS: White Blood Cells 5-10 SEEN /hpf (0-5)
[2023-10-02 19:10] VITALS: BP 163/67; PULSE 82; RESP 18; TEMP 36.7; O2SAT 98
--- NOTE | 2023-10-02 19:46 | HP.PCM.HOS_ITS ---
HPI - General General Date of Admission: 10/02/23 Date of Service: 10/02/23 Chief Complaint: weight loss HPI Narrative IRA LEBRON, is a 73 F who presents with weight loss. Symptoms been ongoing over the past few months also associated with diarrhea. Patient was sent to the emergency room for evaluation. She had a CT of her abdomen pelvis that showed a large mass involving the pancreas measuring 8.1 x 5.6 cm with probable occlusion of the splenic vein. 5 pulmonary nodules less than 1 cm. Multiple, greater than 10, enhancing masses throughout the liver measuring up to 4.8 cm. The ED physician reached out to Dr. Centeno, of oncology, who recommended patient brought in to have a biopsy of the liver masses. Currently, the patient states that she occasionally gets some abdominal fullness and has recently experienced some lower extremity edema but really has no other singular complaints at this time. [facility] Medical History Anemia Atherosclerosis of [place] coronary artery of [place] heart without angina pectoris (02/2011) Diverticulosis Essential (primary) hypertension Hyperlipidemia Obesity Old inferior wall myocardial infarction Type 2 diabetes mellitus Home Medications atorvastatin 40 mg tablet 40 mg PO QHS 07/12/15 [History Last Taken 10/01/23] metformin 1,000 mg tablet 1,000 mg PO BIDCM 07/12/15 [History Last Taken 10/02/23] metoprolol tartrate 50 mg tablet 50 mg PO BID 07/12/15 [History Last Taken 10/02/23] losartan 25 mg tablet 25 mg PO QDAY 06/25/18 [History Last Taken 10/02/23] nitroglycerin 0.4 mg sublingual tablet 0.4 mg sublingual Q5-15M PRN chest pain #25 tabs 06/25/18 [Rx Last Taken Unknown] dulaglutide 0.75 mg/0.5 mL subcutaneous pen injector (Trulicity) 1.5 mg subcut QWEEK 06/24/21 [History Last Taken 09/30/23] Lactobacillus acidophilus 100 million cell capsule 10 mg PO .3xweek 07/19/23 [History Last Taken 10/02/23] insulin detemir U-100 100 unit/mL (3 mL) subcutaneous pen (Levemir FlexPen) 24 unit subcut DAILY 07/19/23 [History Last Taken Unknown] baclofen 10 mg tablet 10 mg PO DAILY PRN muscle spasm 10/02/23 [History Last Taken Unknown] glipizide 10 mg tablet 10 mg PO BID 10/02/23 [History Last Taken 10/02/23] omeprazole 40 mg capsule,delayed release 40 mg PO DAILY 10/02/23 [History Last Taken 10/02/23] oxycodone-acetaminophen 5 mg-325 mg tablet 1 tab PO DAILY PRN pain 10/02/23 [History Last Taken 09/28/23] Allergy/AdvReac Type Severity Reaction Status Date / Time ciprofloxacin [From Cipro] Allergy Swelling Verified 10/02/23 16:33 ciprofloxacin HCl Allergy Swelling Verified 10/02/23 16:33 [From Cipro] ramipril [From Altace] AdvReac Other Verified 10/02/23 16:33 Family History Brother CAD (coronary artery disease) CABG in his 40's Diabetes Surgical History History of appendectomy History of coronary artery stent placement (02/2011) History of hand surgery Hx of cholecystectomy Social History Smoking Status: Never smoker ROS ROS Narrative All review of systems were negative except as mentioned above in the history of present illness and the other review of systems. Vital Signs Vital Signs Vital Signs: 10/02/23 16:33 10/02/23 19:10 Temperature 36.7 C 36.7 C Temperature Source Temporal Pulse Rate 63 82 Respiratory Rate 18 18 Blood Pressure 132/62 H 163/67 H Blood Pressure Mean 85 99 Pulse Ox 100 98 Oxygen Delivery Method Room Air Weight Weight: 61.689 kg Body Mass Index (BMI) 29.4 Physical Exam Const alert Constitutional Narrative: Pleasant and laughing when her [id number] is in the room. Did become tearful when the xamjnulb-nl-hhn stepped out for me to examine her. General Appearance: cooperative HEENT normocephalic Neck no lymphadenopathy Resp normal respiratory effort, no retractions, no use of accessory muscles and clear to auscultation bilaterally Cardio regular rate, regular rhythm, S1 normal heart sound and S2 normal heart sound GI normal to inspection, nondistended, normoactive bowel sounds, soft to palpation, non-tender and non-distended Extremity Extremity Narrative: Trace lower extremity edema Neuro moves all extremities Sensorium / Orientation: awake and alert Psych affect normal Results Lab / Micro Data Attestation: I reviewed the patient's lab results. 10/02/23 17:18 10/02/23 17:18 Labs: Laboratory Results - last 24 hr 10/02/23 17:18: WBC 16.5 H, RBC 3.83 L, Hgb 10.0 L, Hct 32.0 L, MCV 83.6, MCH 26.1 L, MCHC 31.3 L, RDW Std Deviation 43.9, RDW Coeff of Tiana 14.6, Plt Count 225, MPV 10.9, Immature Gran % (Auto) 0.500, Neut % (Auto) 80.0 H, Lymph % (Auto) 8.4 L, Baker % (Auto) 5.0, Eos % (Auto) 5.4 H, Baso % (Auto) 0.7, Absolute Neuts (auto) 13.2 H, Absolute Lymphs (auto) 1.39, Nucleated RBC % 0, Sodium 138, Potassium 4.4, Chloride 108 H, Carbon Dioxide 22.0, Anion Gap 8, BUN 23 H, Creatinine 1.11 H, Estim Creat Clear Calc 42.65, Est GFR (MDRD) Af Amer 62, Est GFR (MDRD) Non-Af 51 L, BUN/Creatinine Ratio 20.7 H, Glucose 213 H, Calcium 10.2 H, Total Bilirubin 0.30, AST 27, ALT 29, Alkaline Phosphatase 155 H, Total Protein 6.8, Albumin 2.7 L, Globulin 4.1, Albumin/Globulin Ratio 0.7 L, Lipase 24 10/02/23 18:30: Urine Color Yellow, Urine Clarity Clear, Urine pH 6.0, Ur Specific [place] 1.010, Urine Protein 30 H, Urine Glucose (UA) 50 H, Urine Ket ones 15 H, Urine Occult Blood Negative, Urine Nitrite Negative, Urine Bilirubin Negative, Urine Urobilinogen Normal, Ur Leukocyte Esterase 100 H, Urine RBC 0 SEEN, Urine WBC 5-10 SEEN, Ur Squamous Epith Cells 0 SEEN, Urine Bacteria 0 SEEN, Urine Mucus 0 SEEN Imagaing Radiology Impression Abdomen/Pelvis CT 10/02/23 17:50 IMPRESSION: Large pancreatic mass with multiple masses in the liver consistent with metastatic pancreatic cancer. Multiple small pulmonary nodules with possible metastatic disease. Electronically Signed: Avi Coyne MD at 18:21 EST , ADDENDUM: 10/02/23 1849 IMPRESSION: Large pancreatic mass with multiple masses in the liver consistent with metastatic pancreatic cancer. Multiple small pulmonary nodules with possible metastatic disease. N.B. : The above Results were Read Back by Avi Coyne MD to Aleksandar Sher DO, and understanding confirmed on 10/02/2023 18:42:44 (ET). Electronically Signed: Avi Coyne MD at 18:21 EST , Assessment & Plan Assessment/Plan (1) Suspected malignant neoplasm: PLAN: Suspected pancreatic cancer as the primary.. Patient had a family member who recently from what sounds like cholangiocarcinoma. Plan is to bring the patient in to be evaluated to see if a CT-guided biopsy when the one of the liver lesions is feasible. Will check tumor markers with CA 19-9, CEA and CA125. If we are able to get the biopsy, patient will need to follow-up with Dr. Centeno for results and possible treatment options. PLAN: Plan Chronic stable conditions * CAD: Remote. Continue with atorvastatin, metoprolol and losartan. Patient has not taken any aspirin or clopidogrel in some time. * Diabetes mellitus type 2: None insulin-dependent. Continue with her home meds with glyburide and metformin. Sliding scale insulin. VTE prophylaxis: Low risk at this time given current observation status. CODE STATUS: Addressed with the patient. Patient unsure at this time. Patient be left full code until she indicates otherwise. Case was discussed with her [id number], Jenniffer, at bedside with the patient's permission. Charges/Coding Visit Charges Inpatient E&M: 68831 Init Hosp L2
[2023-10-02 20:30] VITALS: BP 160/58; PULSE 76; RESP 16; TEMP 36.9; O2SAT 98
[2023-10-02 20:38] VITALS: BMI 29.2
[2023-10-02 22:49] VITALS: BP 137/58; PULSE 68; RESP 20; TEMP 36.9; O2SAT 98
[2023-10-02] MEDS: 0.9% Saline Lock 10 ML Syringe IV (22:52)
[2023-10-02 22:53] VITALS: BP 137/58; PULSE 68
[2023-10-02] MEDS: Atorvastatin Calcium 40 MG Tablet PO (22:53)
[2023-10-02] MEDS: Metoprolol Tartrate 50 MG Tablet PO (22:53)
[2023-10-03] VITALS (18 sets, daily range): BP systolic 116–162; BP diastolic 38–61; PULSE 56–82; RESP 14–30; TEMP 36.5–37.1; O2SAT 94–100
--- NOTE | 2023-10-03 | IMM_PTH ---
PATIENT: IRA LEBRON LOC: MS3 U#:[id number] AGE/SX: 73/F ROOM: [facility]308 RE10/02/[address]: Dr. Aureliano Fajardo DO : 1950 BED: 1 DIS: 10/03/2023 SPEC #: [id number] RECD: 10/04/23 13:38 STATUS: [facility] REQ #: [id number] GISELA: 10/03/23 00:[address]: Aureliano Fajardo DEPT: IMMUNOHISTOCHEMISTRY RECD BY: Melvi Scott ENTERED: 10/04/23 14:01 SP TYPE: IMMUNO OTHR DR: MD Dr. Brian Casey DO Tissues: Liver, NOS Procedures: RCC (add) NAPSIN A (add) CA-125 (add) CEA (add) CK19 (add) CK20 (add) CK7 (add) CK8 (add) ANDRA (add) HEP PAR (add) KI-67 (add) MAMM (add) P53 (add) OR (add) TTF1 (add) Vimentin (add) Pankeratin (add) GATA3 (add) P40 (add) CDX2 (add) MOC-31 (add) ER (initial) S-100 (add) PHYSICIAN & [place] [id number] SPECIMEN INFORMATION: Tissue Source: Left lobe of liver mass Clinical Info: Liver mass Specimen Number: [id number] CPT code: 31537, 47906 x22 METHODOLOGY: Deparaffinized sections of prefer/formalin-fixed tissue or PAP/DQ stained slides are incubated with monoclonal/polyclonal antibodies/oligonucleotide probes. Localization is made via biotin free immunoperoxidase method. Appropriate controls are performed and reacted as expected. Results on target cell population are indicated in the following table: RESULTS: ANTIBODY / CLONE RESULT ER (6F11) negative OR (1E2) negative Mammaglobin (31A5) negative GATA3 (L50-823) negative AE1-3 (AE1/AE3/PCK26) positive, focal CK7 (OV-TL12/30) negative CK8 (54hskiR37) negative, focal CK20 (KS20.8) negative CDX2 (XIU2890V) negative MOC-31 (4561) negative Vimentin (V9) positive S-100 (4C4.9) negative CK19 (A53-B/A2.26) positive, rare TTF-1 (8G7G3/1) negative Napsin A (Rabbit Polyclonal) negative HepPar (OCh1E5) negative RCC (PN-15) negative P40 (BC28) negative ANDRA (E29) positive, focal CEA (11-7/TF-3HB-1) negative CA125 (OC125) negative P53 (DO-7) positive, wild type pattern Ki-67 (30-9) positive, 70% These tests were developed and their performance characteristics determined by [facility]. They may not have been cleared or approved by the U.S. Food and Drug Administration. The FDA has determined that such clearance or approval is not necessary. The above immunohistochemical/dualISH markers are ordered and reviewed by the Pathologist. INTERPRETATION: Left lobe of liver, biopsy: Metastatic non-small cell carcinoma. See comment. AM:parish 10/05/2023 Comment: The IHC profile favors an upper GI primary including the pancreatobiliary system. Clinical correlation is suggested.
--- NOTE | 2023-10-03 | ASPIGT_PTH ---
PATIENT: IRA LEBRON LOC: MS3 U#:[id number] AGE/SX: 73/F [place] [facility] [place]: Dr. Aureliano Fajardo DO : 1950 BED: 1 DIS: 10/03/2023 SPEC #: [id number] RECD: 10/03/23 09:45 STATUS: [facility] REQ #: [id number] GISELA: 10/03/23 00:[address]: Brian Perry DEPT: SURGICAL PATHOLOGY RECD BY: Mick Mercer ENTERED: 10/03/23 09:45 SP TYPE: ASP RAD OTHR DR: MD Dr. Brian Casey DO Dr. Mark Tereletsky, DO Tissues: Liver, NOS Procedures: FNA Specimen Adequacy Special Stain Group II Mucicarmine Stain (control) Surgery Specimen Level IV Imprint (control) Comments: @ Ordering doctor for SSII edited from to DR.EJOPPE Valdes by ALEJANDRO at 10/04/23 08 @ Ordering doctor for SUIV edited from to DR.EJOPPE Valdes by ALEJANDRO at 10/04/23 08 @ Ordering doctor for SUV edited from to DR.EJOPPE Valdes by ALEJANDRO at 10/04/23 08 @ Ordering doctor for IMPRINT edited from to DR.EJOPPE Valdes by ALEJANDRO at 10/04/23 08 @ Ordering doctor for FNASA edited from to DR.EJOPPE Valdes by ALEJANDRO at 10/04/23 0815 @ Submitting doctor edited from to DR.EJOPPE Valdes by ALEJANDRO at 10/04/2315 HEADER OPERATION: CT-guided liver biopsy PRE-OP DIAGNOSIS: Liver mass TISSUE SUBMITTED: Left lobe liver mass 18-gauge core x4 MICROSCOPIC DIAGNOSIS Liver mass, CT-guided needle core biopsy: Metastatic carcinoma. Note: Immunohistochemistry ([id number]) supports the above diagnosis and favors an upper gastrointestinal tract primary including the pancreatobiliary system. AM:parish 10/05/2023 COMMENT Mucin stain with matched control was used in the evaluation of this case. MICROSCOPIC DESCRIPTION Slides are reviewed. GROSS DESCRIPTION Received in fixative is one container labeled with the patient's name and designated liver mass. The specimen consists of multiple elongated fragments of light goodrich soft tissue that in aggregate measure 2.0 x 0.5 x 0.1 cm. The specimen is totally submitted in one cassette. / AM:parish 10/03/2023 TC:0 CPT: 95295, 45175, 81318, 85321, 41684
[2023-10-03 00:04] LABS: Bedside Glucose 162 mg/dL (74-106)
[2023-10-03] MEDS: Insulin Lispro 100 UNIT/ML INSULN.PEN SC ×3 (06:21→16:07)
[2023-10-03 06:24] LABS: International Normalized Ratio 1.1; Prothrombin Time (Protime)PT. 13.8 SECONDS (11.7-14.9)
[2023-10-03 06:51] LABS: Bedside Glucose 184 mg/dL (74-106)
--- NOTE | 2023-10-03 09:00 | CT_ITS ---
PROCEDURE: CT DIRECTED CORE LIVER BIOPSY INDICATION: Female, 73 years old. Pancreatic mass. Liver nodules. PHYSICIAN: Dr. Kahlil Leal CONSENT: Written informed consent was obtained having explained the risks, benefits and alternatives in detail with the patient who accepted the risks and agreed to proceed. Laboratory review and clinical assessment was performed. CONSCIOUS SEDATION PROTOCOL: The Drugs used were: 2 mg Versed, IV., and 50 mcg Fentanyl, IV. The sedation time was: 21 minutes. Conscious sedation was started at 9:06 AM and terminated at 9:27 AM. The conscious sedation protocol was independently monitored. RADIATION DOSAGE (If Supplied By Facility): CTDIvol = ( 18 ) mGy, DLP = ( 479.09 ) mGycm Individualized dose optimization techniques were used for this CT. TECHNIQUE: Using CT image guidance with image documentation, a suitable location in the left lobe of the liver was identified. Using an anterior approach, puncture of the liver was uneventful with an 18-gauge core needle system. 4, 18-gauge core samples were obtained, and submitted in formalin to the pathologist for further assessment. Followup CT scan revealed no distinct sequelae. CT/Biopsy/Inj or Needle Placement IMPRESSION: 1. CT directed core needle biopsy of the liver, using CT image guidance with image documentation as described. 2. Conscious Sedation protocol utilized with independent monitoring. Electronically Signed: Andres Guillory MD at 10:43 EST ,
[2023-10-03] MEDS: Midazolam 2 MG/2 ML Syringe IV (09:06)
[2023-10-03] MEDS: 0.9% Normal Saline (250mL Bag) 250 ML 15 ML IV (09:06)
[2023-10-03] MEDS: fentaNYL 100 MCG/2 ML Ampul IV (09:09)
[2023-10-03] MEDS: Lidocaine 2% (20 ml mdv) 20 ML Vial INFILT (09:17)
[2023-10-03] MEDS: glipiZIDE 10 MG Tablet PO ×2 (10:46→16:08)
[2023-10-03] MEDS: Menthol/Lanolin/Calamine/Znox 113 GM Tube 1 APPLIC TOPICAL (10:47)
[2023-10-03] MEDS: metFORMIN HCl 1,000 MG Tablet 1000 MG PO ×2 (10:47→17:02)
[2023-10-03] MEDS: Losartan Potassium 25 MG Tablet PO (10:48)
[2023-10-03] MEDS: Pantoprazole Sodium 40 MG Tablet PO (10:48)
[2023-10-03 11:20] LABS: Bedside Glucose 189 mg/dL (74-106)
[2023-10-03] MEDS: Glucerna Shake 120 ML LIQUID PO (14:15)
[2023-10-03 15:00] LABS: Hematocrit 29.5 % (37-47); Hemoglobin 9.1 g/dL (12.0-15.0)
--- NOTE | 2023-10-03 16:14 | DCINST_ITS ---
Discharge Instructions Diet Discharge Diet: 1800 Calorie Control Diet Activity Discharge Activity: Return to Normal Activity Weight Bearing Status: Full weight bearing Follow Up Care Test Results: Test results from this visit will be discussed in further detail at your follow- up appointment, if applicable. Discharge Plan Admission Admit Date/Time: 10/02/23 19:41 Primary Reason for Your Visit: liver mass, pancreas mass Attending Provider: Aureliano Fajardo Primary Care Provider: Margaret Hwang Consulting Providers: Brian Perry Instructions Patient Instructions: RAD RN Biopsy Liver Dc, LJ RN Procedural Sedation Discharge Orders/Prescriptions Prescriptions: Continued losartan 25 mg tablet 25 mg PO QDAY nitroglycerin 0.4 mg tablet, sublingual 0.4 mg SUBLINGUAL Q5-15M PRN (Reason: chest pain) Qty: 25 3RF Rx Instructions: until response; do not exceed 3 doses per episode Lactobacillus acidophilus 100 million cell capsule 10 mg PO .3xweek Trulicity 0.75 mg/0.5 mL pen injector 1.5 mg SC QWEEK Levemir FlexPen 100 unit/mL (3 mL) insulin pen 24 unit subcut DAILY Hold Instructions: PT STOPPED WITHOUT MD INSTRUCTION atorvastatin 40 MG tablet 40 mg PO QHS metformin 1,000 MG tablet 1,000 mg PO BIDCM metoprolol tartrate 50 MG tablet 50 mg PO BID baclofen 10 mg tablet 10 mg PO DAILY PRN (Reason: muscle spasm) glipizide 10 mg tablet 10 mg PO BID omeprazole 40 mg capsule,delayed release(DR/EC) 40 mg PO DAILY oxycodone-acetaminophen 5-325 mg tablet 1 tab PO DAILY PRN (Reason: pain) Referrals / Follow Up: Margaret Hwang MD [Primary Care Provider] - Rajeev Centeno DO [Med Staff - Active Staff] - See Referral Note (You have an appointment to see Dr. Centeno on 10/11/2023 at 3 PM, please get there at 2:30 PM to fill out paperwork) Disposition Disposition (needs filled in before D/C Order can be placed): Home, Self Care
--- NOTE | 2023-10-03 16:19 | DS.PCM_ITS ---
Providers Date of Admission: 10/02/23 Date of Discharge: 10/03/23 Primary Care Physician: Dr. Margaret Hwang MD Consultations 10/03/23 04:19 Consult: Onc/Wound/roof technician Routine Comment: Reason for Consult:: wound on buttock Reason For Visit: PANCREATIC MASS Diagnosis Discharge Diagnosis (1) Suspected malignant neoplasm: Status: Acute Code(s): R68.89 - Other general symptoms and signs Plan 1. Pancreatic mass #2 metastatic disease to the liver and lungs from unknown primary #3 type 2 diabetes #4 anemia-etiology unclear #5 atherosclerotic heart disease #6 essential hypertension Medications at Discharge Home Medications atorvastatin 40 mg tablet 40 mg PO QHS 07/12/15 metformin 1,000 mg tablet 1,000 mg PO BIDCM 07/12/15 metoprolol tartrate 50 mg tablet 50 mg PO BID 07/12/15 losartan 25 mg tablet 25 mg PO QDAY 06/25/18 nitroglycerin 0.4 mg sublingual tablet 0.4 mg sublingual Q5-15M PRN chest pain #25 tabs 06/25/18 dulaglutide 0.75 mg/0.5 mL subcutaneous pen injector (Trulicity) 1.5 mg subcut QWEEK 06/24/21 Lactobacillus acidophilus 100 million cell capsule 10 mg PO .3xweek 07/19/23 insulin detemir U-100 100 unit/mL (3 mL) subcutaneous pen (Levemir FlexPen) 24 unit subcut DAILY 07/19/23 baclofen 10 mg tablet 10 mg PO DAILY PRN muscle spasm 10/02/23 glipizide 10 mg tablet 10 mg PO BID 10/02/23 omeprazole 40 mg capsule,delayed release 40 mg PO DAILY 10/02/23 oxycodone-acetaminophen 5 mg-325 mg tablet 1 tab PO DAILY PRN pain 10/02/23 Hospital Course Operations None Procedures - (CT guided liver biopsy) Summary of Care Provided Minutes Spent on Discharge: 30 Hospital Course: This 73-year-old white female was seen in the emergency room at [facility] after being sent in for evaluation by her PCP due to weight loss, abdominal pain, low hemoglobin, and leg edema. She had also complained of intermittent nausea vomiting and diarrhea over the past month. Patient reported a 23 pound weight loss over the past month. Work-up in the emergency room included labs: CBC showed an elevated white blood cell count at 16.5, hemoglobin was 10, BUN was elevated at 23 and creatinine was 1.1. Alkaline phosphatase was elevated at 155. CT of the abdomen and pelvis was obtained which showed a large pancreatic mass with multiple masses in the liver consistent with metastatic pancreatic cancer, there are also multiple small pulmonary nodules with possible metastatic disease. Patient was placed in observation status on MedSurg 3, she underwent a CT-guided liver biopsy to obtain tissue for diagnosis. Tumor antigen markers were obtained. There were no complications from the procedure noted. On 10/03/2023, patient was seen and examined: On examination she does not appear to be in any distress. Vital signs as documented. Skin warm and dry and without overt rashes. Neck without JVD, thyroid appears normal, trachea is midline, neck is supple. Lungs clear, normal air movement was noted. Heart exam notable for regular rhythm, normal sounds and absence of murmurs, rubs or gallops. Abdomen unremarkable and without evidence of organomegaly, masses, or abdominal aortic enlargement, bowel sounds are present in all 4 quadrants, no abdominal tenderness was noted. Extremities nonedematous, no cyanosis was noted, no clubbing was noted. Neuro: Cranial nerves II through XII are grossly intact, no focal motor deficits were noted, sensation to light touch and pinprick is intact, motor exam 5/5 throughout. Psych: Patient is alert and oriented x3, she does not appear anxious or depressed, she does not appear agitated. Patient was discharged home in stable condition on 10/03/2023, she was to follow-up with Dr. Centeno in the office on 10/11/2023. Weight / BMI Weight Weight: 61.4 kg Body Mass Index (BMI) 29.2 ABG / Lab / Microbiology Data 10/03/23 14:30 10/02/23 17:18 Laboratory: Laboratory Results - last 24 hr 10/02/23 17:18: WBC 16.5 H, RBC 3.83 L, Hgb 10.0 L, Hct 32.0 L, MCV 83.6, MCH 26.1 L, MCHC 31.3 L, RDW Std Deviation 43.9, RDW Coeff of Tiana 14.6, Plt Count 225, MPV 10.9, Immature Gran % (Auto) 0.500, Neut % (Auto) 80.0 H, Lymph % (Auto) 8.4 L, [place] % (Auto) 5.0, Eos % (Auto) 5.4 H, Baso % (Auto) 0.7, Absolute Neuts (auto) 13.2 H, Absolute Lymphs (auto) 1.39, Nucleated RBC % 0, Sodium 138, Potassium 4.4, Chloride 108 H, Carbon Dioxide 22.0, Anion Gap 8, BUN 23 H, Creatinine 1.11 H, Estim Creat Clear Calc 42.65, Est GFR (MDRD) Af Amer 62, Est GFR (MDRD) Non-Af 51 L, BUN/Creatinine Ratio 20.7 H, Glucose 213 H, Calcium 10.2 H, Total Bilirubin 0.30, AST 27, ALT 29, Alkaline Phosphatase 155 H, Total Protein 6.8, Albumin 2.7 L, Globulin 4.1, Albumin/Globulin Ratio 0.7 L, Lipase 24 10/02/23 18:30: Urine Color Yellow, Urine Clarity Clear, Urine pH 6.0, Ur Specific [place] 1.010, Urine Protein 30 H, Urine Glucose (UA) 50 H, Urine Ketones 15 H, Urine Occult Blood Negative, Urine Nitrite Negative, Urine Bilirubin Negative, Urine Urobilinogen Normal, Ur Leukocyte Esterase 100 H, Urine RBC 0 SEEN, Urine WBC 5-10 SEEN, Ur Squamous Epith Cells 0 SEEN, Urine Bacteria 0 SEEN, Urine Mucus 0 SEEN 10/02/23 22:56: POC Glucose 162 H 10/03/23 05:45: PT 13.8, INR 1.1 10/03/23 06:17: POC Glucose 184 H 10/03/23 10:59: POC Glucose 189 H 10/03/23 14:30: Hgb 9.1 L, Hct 29.5 L Radiography Diagnostic Testing: Radiology Impression Abdomen/Pelvis CT 10/02/23 17:50 IMPRESSION: Large pancreatic mass with multiple masses in the liver consistent with metastatic pancreatic cancer. Multiple small pulmonary nodules with possible metastatic disease. Electronically Signed: Avi Coyne MD at 18:21 EST , ADDENDUM: 10/02/23 428 IMPRESSION: Large pancreatic mass with multiple masses in the liver consistent with metastatic pancreatic cancer. Multiple small pulmonary nodules with possible metastatic disease. N.B. : The above Results were Read Back by Avi Coyne MD to Aleksandar Sher DO, and understanding confirmed on 10/02/2023 18:42:44 (ET). Electronically Signed: Avi Coyne MD at 18:21 EST , Biopsy CT 10/03/23 09:00 IMPRESSION: 1. CT directed core needle biopsy of the liver, using CT image guidance with image documentation as described. 2. Conscious Sedation protocol utilized with independent monitoring. Electronically Signed: Andres Guillory MD at 10:43 EST , D/C Instructions Discharge Diet: 1800 Calorie Control Diet Weight Bearing Status: Full weight bearing Meaningful Use Info Meaningful Use Diagnoses (Choose all that apply): None applicable Discharge Plan Admission Admit Date/Time: 10/02/23 19:41 Primary Reason for Your Visit: liver mass, pancreas mass Attending Provider: Aureliano Fajardo Primary Care Provider: Margaret Hwang Consulting Providers: Brian Perry Instructions Patient Instructions: LJ RN Biopsy Liver Dc, LJ RN Procedural Sedation Discharge Orders/Prescriptions Prescriptions: Continued losartan 25 mg tablet 25 mg PO QDAY nitroglycerin 0.4 mg tablet, sublingual 0.4 mg SUBLINGUAL Q5-15M PRN (Reason: chest pain) Qty: 25 3RF Rx Instructions: until response; do not exceed 3 doses per episode Lactobacillus acidophilus 100 million cell capsule 10 mg PO .3xweek Trulicity 0.75 mg/0.5 mL pen injector 1.5 mg SC QWEEK Levemir FlexPen 100 unit/mL (3 mL) insulin pen 24 unit subcut DAILY Hold Instructions: PT STOPPED WITHOUT MD INSTRUCTION atorvastatin 40 MG tablet 40 mg PO QHS metformin 1,000 MG tablet 1,000 mg PO BIDCM metoprolol tartrate 50 MG tablet 50 mg PO BID baclofen 10 mg tablet 10 mg PO DAILY PRN (Reason: muscle spasm) glipizide 10 mg tablet 10 mg PO BID omeprazole 40 mg capsule,delayed release(DR/EC) 40 mg PO DAILY oxycodone-acetaminophen 5-325 mg tablet 1 tab PO DAILY PRN (Reason: pain) Referrals / Follow Up: Margaret Hwang MD [Primary Care Provider] - Rajeev Centeno DO [Med Staff - Active Staff] - See Referral Note (You have an appointment to see Dr. Centeno on 10/11/2023 at 3 PM, please get there at 2:30 PM t o fill out paperwork) Disposition Disposition (needs filled in before D/C Order can be placed): Home, Self Care Charges/Coding Visit Charges Inpatient E&M: 65896 Disch Hosp
[2023-10-03 16:30] LABS: Bedside Glucose 187 mg/dL (74-106)
[2023-10-04 12:08] LABS: Cancer Antigen 125 2303 15.7 U/mL (0.0-38.1); Carbohydrate Ag 19-9 2261 245 U/mL (0-35); Carcinoembryonic Antigen 4.7 ng/mL (0.0-4.7)
== END 2023-10-03 18:07 | disposition home or self-care (01) ==
LOC: ED 19:18 → MS3 21:17
PROVIDERS: Emergency Provider Emergency Medicine; PCP Internal Medicine; Visit Provider Internal Medicine
DX: K86.89 Other specified diseases of pancreas (principal); C78.7 Secondary malignant neoplasm of liver and intrahepatic bile duct; C78.00 Secondary malignant neoplasm of unspecified lung; C80.1 Malignant (primary) neoplasm, unspecified; Z79.4 Long term (current) use of insulin; E11.9 Type 2 diabetes mellitus without complications; E78.5 Hyperlipidemia, unspecified; D64.9 Anemia, unspecified; I10 Essential (primary) hypertension; I25.10 Atherosclerotic heart disease of native coronary artery without angina pectoris; Z79.899 Other long term (current) drug therapy; Z79.84 Long term (current) use of oral hypoglycemic drugs
CPT/HCPCS: 47000; 36415; 74177; 77012; 80053; 81001; 81002; 82378; 82962; 83690; 85014; 85018; 85025; 85610; 86301; 86304; 88172; 88305; 88307; 88313; 88341; 88342; 96361; 96374; 96375; 97802; 99156; 99221; 99284; J7030; J7050; Q9967; A4216; G0378

== ENCOUNTER 2023-10-20 07:35 | Day surgery (SDC) | payer MEDICARE, SELFPAY ==
[2023-10-20] VITALS (7 sets, daily range): BP systolic 104–128; BP diastolic 40–48; PULSE 68–73; RESP 16–18; TEMP 36–36.8; O2SAT 99–100; BMI 28.7
[2023-10-20] MEDS: Lactated Ringers 1,000 ML 15 ML IV (08:05)
--- NOTE | 2023-10-20 08:19 | PCM.HP.BLA ---
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 Is patient in pain?: No Allergies ciprofloxacin [From Cipro] Allergy (Verified 10/16/23 15:20) Swellingciprofloxacin HCl [From Cipro] Allergy (Verified 10/16/23 15:20) Swellingramipril [From Altace] Adverse Reaction (Verified 10/16/23 15:20) Other Medications atorvastatin 40 mg tablet 40 mg PO QHS 07/12/15 [History Confirmed 10/16/23] metformin 1,000 mg tablet 1,000 mg PO BIDCM 07/12/15 [History Confirmed 10/16/23] metoprolol tartrate 50 mg tablet 50 mg PO BID 07/12/15 [History Confirmed 10/16/23] losartan 25 mg tablet 25 mg PO QDAY 06/25/18 [History Confirmed 10/16/23] nitroglycerin 0.4 mg sublingual tablet 0.4 mg sublingual Q5-15M PRN chest pain #25 tabs 06/25/18 [Rx Confirmed 10/16/23] dulaglutide 0.75 mg/0.5 mL subcutaneous pen injector (Trulicity) 1.5 mg subcut QWEEK 06/24/21 [History Confirmed 10/16/23] Lactobacillus acidophilus 100 million cell capsule 10 mg PO .3xweek 07/19/23 [History Confirmed 10/16/23] insulin detemir U-100 100 unit/mL (3 mL) subcutaneous pen (Levemir FlexPen) 24 unit subcut DAILY 07/19/23 [History Confirmed 10/16/23] baclofen 10 mg tablet 10 mg PO DAILY PRN muscle spasm 10/02/23 [History Confirmed 10/16/23] glipizide 10 mg tablet 10 mg PO BID 10/02/23 [History Confirmed 10/16/23] omeprazole 40 mg capsule,delayed release 40 mg PO DAILY 10/02/23 [History Confirmed 10/16/23] oxycodone-acetaminophen 5 mg-325 mg tablet 1 tab PO DAILY PRN pain 10/02/23 [History Confirmed 10/16/23] [facility], [facility] Medical History (Updated 10/16/23 @ 15:[address] Scott Temple MD) Anemia Atherosclerosis of [place] coronary artery of [place] heart without angina pectoris (02/2011) Diverticulosis Essential (primary) hypertension Hyperlipidemia Liver mass Obesity Old inferior wall myocardial infarction Pancreatic cancer Type 2 diabetes mellitus Surgical History History of appendectomy History of coronary artery stent placement (02/2011) History of hand surgery Hx of cholecystectomy Family History Brother CAD (coronary artery disease) CABG in his 40's Diabetes Social History Smoking Status: Never smoker HPI HPI HPI: Patient is a 73-year-old female here with pancreatic cancer and need for port placement. She is having bloating and reflux. ROS General General: Yes weight change and fatigue; No appetite, colon cancer, breast cancer or weakness HEENT HEENT: Yes swollen glands; No difficulty swallowing, eye injury, eye surgery or hoarseness Endo Endocrine: Yes diabetes mellitus; No thyroid disease, thyroid cancer, Hair loss, heat intolerance or cold intolerance Skin Skin: No rash or changing moles Breast Breast: No left breast lump, right breast lump, nipple discharge, breast pain, abnormal mammogram, abnormal US or breast enlargement Musc Musculoskeletal: Yes back problems and arthritis; No rheumatoid arthritis, gout or joint pain Cardio Cardiovascular: Yes heart disease, high blood pressure, heart attack and heart stent; No murmur, pacemaker, atrial fibrillation, palpitations, shortness of breat with exertion or chest pain Psych Psychiatric: No depression, anxiety or hearing voices Resp Respiratory: No shortness of breath, No sleep apnea, No cough, No COPD, No asthma, No emphysema and No wheezing Gastro Gastrointestinal: Yes abdominal pain, No nausea or vomiting, Yes diarrhea, No constipation, No blood in stool, No acid reflux, Yes hemorrhoids, No ulcers, No gallbladder problem and No black,tarry stools Additional Details: Pancreatic cancer [place] Hematologic: No blood thinners, No blood disorders, No bleeding, No anemia and No blood clots Neuro Neurologic: No system reviewed and no additional complaints, except as documented, No as per HPI, No abnormal gait, No abnormal hearing, No abnormal movements, No abnormal speech, No behavioral changes, No burning sensations, No confusion, No convulsions, No disequilibrium, No dizziness, No localized weakness, No frequent falls, No headache(s), No lack of coordination, No loss of vision, No memory loss, Yes numbness, No other visual disturbances, No radicular pain, No restless legs, No sensory deficit, No syncope, Yes tingling, No tremor(s), No weakness and No other Exam Const General: cooperative Orientation: alert and oriented x3 HENMT Head: normal to inspection Neck Neck: normal visual inspection and full ROM Chest Chest palpation & inspection: normal inspection of the chest Resp Effort & Inspection: normal respiratory effort Auscultation: clear to auscultation bilaterally Cardio Rate: regular rate Rhythm: regular rhythm GI Inspection: non-distended Palpation: soft and nontender Skin General: no rashes or lesions noted Neuro General: patient alert and patient oriented x3 Extrem General: full ROM Psych Appearance: grossly normal Mental Status: mental status grossly normal Assessment and Plan Assessment and Plan (1) Metastasis from pancreatic cancer: Status: Acute (2) Encounter for insertion of venous access port: Status: Acute Plan The patient requires port for chemotherapy. I discussed port placement with her in detail. I discussed right-sided chest port placement with right IJ catheterization. I discussed the risks including but not limited to bleeding, infection, injury to other organs or pneumothorax. Patient understands the risks and is willing to proceed. I will plan for surgery this Monday. Scott Temple MD Pager: [facility] [address] [place] [address], [address] [place] [address] Office: I have examined the patient and the H&P has been reviewed. There are no clinical changes since date of exam.
[2023-10-20 08:28] LABS: Bedside Glucose 185 mg/dL (74-106)
[2023-10-20] MEDS: Cefazolin 2 GM in 0.9% Normal Saline (100mL Bag) 100 ML IV (08:44)
[2023-10-20] MEDS: Lidocaine 1%/Epi 1:200 (30ml) 30 ML AMPUL (08:58)
[2023-10-20] MEDS: Bupivacaine Mpf 0.5% 30 ML VIAL (08:58)
--- NOTE | 2023-10-20 09:22 | RAD_ITS ---
STUDY: X-RAY CHEST REASON FOR EXAM: Female, 73 years old. Line placement -- in pacu TECHNIQUE: Single AP portable view of the chest. COMPARISON: Comparison is made with prior study September 25, 2023. FINDINGS: A right-sided Port-A-Cath has been placed with the tip at the junction of the superior vena cava and right atrium. EKG electrodes are seen. The lungs are clear and expanded. There is no demonstrated pleural abnormality. Normal size heart. Normal mediastinum and vira. Normal visualized pulmonary arteries. There is atherosclerotic calcification of the aortic arch with tortuosity. There are degenerative changes of the visualized thoracic spine. Normal visualized ribs, clavicles, and shoulders. There is no demonstrated abnormality of the visualized soft tissue structures of the upper abdomen. RAD/CXR for Line Placement IMPRESSION: The tip of the right america catheter is at the junction of the superior vena cava and right atrium. Electronically Signed: Andres Guillory MD at 10:12 [facility] ,
--- NOTE | 2023-10-20 09:22 | PCM.OPRPT ---
Report of Operation Date of Procedure: 10/20/23 Pre-Operative Diagnosis: Need for vascular access for chemotherapy Post-Operative Diagnosis: Same Surgery/Procedure Performed:: Ultrasound and fluoroscopy guided right chest port placement utilizing right IJ Type of Anesthesia: Local MAC Estimated Blood Loss (mL): 5 Description of Procedure: After obtaining informed consent patient was brought back to the operating room MAC anesthesia was induced and the right chest and neck were prepped in normal sterile fashion. Ultrasound was used to evaluate both IJs and the right IJ was selected. Next, using a needle, the right IJ was accessed and a guidewire was passed on into the superior vena cava under fluoroscopy guidance. A small incision was made over the puncture site and the dilator introducer was placed over the guidewire. Next this was capped and the pocket was made for the port. 1% lidocaine with epinephrine was injected in the proposed port site. An incision was made with scalpel. Electrocautery was used to make a pocket under the skin and subcutaneous tissue. Hemostasis was obtained. Next, the catheter was tunneled up to the neck incision site and placed through the introducer. The peel-away introducer was removed and the position of the catheter was confirmed on fluoroscopy. Next, the catheter was trimmed and attached to the port with the locking device. Interrupted 2-0 Vicryl sutures were used to anchor the port to the chest wall and then the port was placed inside the pocket. The pocket was then flushed with saline and the port irrigated with saline. There was good blood return and the port flushed easily. Next, heparin was injected into the port. The skin was closed with subcutaneous interrupted 3-0 Vicryl sutures. A single 3-0 Vicryl sutures placed under the skin at the neck incision site. Steri-Strips were placed as well as op sites. Patient tolerated procedure well, was taken to PACU in stable condition. Chest x-ray will be obtained. Grafts/Implants Used: 8 Upper Sorbian PowerPort Admit VTE Documentation VTE Mechan Device Prophylaxis: SCD's
--- NOTE | 2023-10-20 09:23 | DCINST_ITS ---
Discharge Instructions Procedure Port-A-Cath Diet Discharge Diet: Light diet - advance as tolerated (Pain medication may cause nausea. You should typically eat light foods as you take your pain medication.) Activity Discharge Activity: Return to Normal Activity and May Shower (with your bandage in place in 1-2 days after surgery. DO NOT SHOWER WHEN YOUR PORT IS ACCESSED.) Lifting Restrictions: Resume normal activity tomorrow Dressing / Incision Call your doctor if your incision/area has: Continuous Slow Oozing, Sudden Increased Bleeding, Increased Pain/ Swelling, Increased Redness and Foul Smelling Discharge Call your doctor if you observe: Fever of 101 or Higher Remove Dressing in: 2 days Cleanse incision/area with: Soap & Water Follow Up Care Please Follow Up With: Scott Temple MD When: as needed [phone] Test Results: Test results from this visit will be discussed in further detail at your follow- up appointment, if applicable. Discharge Plan Admission Attending Provider: Scott Temple Primary Care Provider: Margaret Hwang Instructions Additional Instructions / Restrictions: Alternate ibuprofen and Tylenol for pain control Discharge Orders/Prescriptions Prescriptions: No Action losartan 25 mg tablet 25 mg PO QDAY nitroglycerin 0.4 mg tablet, sublingual 0.4 mg SUBLINGUAL Q5-15M PRN (Reason: chest pain) Qty: 25 3RF Rx Instructions: until response; do not exceed 3 doses per episode Trulicity 0.75 mg/0.5 mL pen injector 3 mg SC SA atorvastatin 40 MG tablet 40 mg PO QHS metformin 1,000 MG tablet 1,000 mg PO BIDCM metoprolol tartrate 50 MG tablet 50 mg PO BID insulin glargine [Lantus Solostar U-100 Insulin] 100 unit/mL (3 mL) insulin pen 24 unit SUBCUT DAILY baclofen 10 mg tablet 10 mg PO DAILY PRN (Reason: muscle spasm) glipizide 10 mg tablet 10 mg PO BID omeprazole 40 mg capsule,delayed release(DR/EC) 40 mg PO DAILY oxycodone-acetaminophen 5-325 mg tablet 1 tab PO DAILY PRN (Reason: pain) Referrals / Follow Up: Margaret Hwang MD [Primary Care Provider] - Disposition Disposition (needs filled in before D/C Order can be placed): Home, Self Care
== END 2023-10-20 10:30 | disposition home or self-care (01) ==
LOC: SDC 07:36 → AC 07:37
PROVIDERS: PCP Internal Medicine; Referring Provider Surgery; Visit Provider Surgery
DX: C25.9 Malignant neoplasm of pancreas, unspecified (principal); E11.9 Type 2 diabetes mellitus without complications; I25.10 Atherosclerotic heart disease of native coronary artery without angina pectoris; I10 Essential (primary) hypertension; K21.9 Gastro-esophageal reflux disease without esophagitis; E78.5 Hyperlipidemia, unspecified; E66.9 Obesity, unspecified; I25.2 Old myocardial infarction; Z79.899 Other long term (current) drug therapy; Z79.84 Long term (current) use of oral hypoglycemic drugs; Z68.29 Body mass index [BMI] 29.0-29.9, adult
CPT/HCPCS: 36561; 00532; 71045; 77001; 82962; J7120; C1788

== ENCOUNTER → 2023-10-23 | Outpatient (CLI) | payer MEDICARE, SELFPAY ==
--- NOTE | 2023-10-23 13:53 | CT_ITS ---
STUDY: CT CHEST WITHOUT CONTRAST REASON FOR EXAM: Female, 73 years old. PANCREATIC CANCER RADIATION DOSAGE (If Supplied By Facility): CTDIvol = ( 7.73 ) mGy, DLP = ( 228 ) mGycm TECHNIQUE: Transaxial imaging was performed without the administration of intravenous contrast material. Multiplanar coronal and sagittal images were reformatted. Individualized dose optimization techniques were used for this CT. COMPARISON: Comparison is made with prior chest radiograph dated October 20, 2023. FINDINGS: CHEST A right-sided america catheter is seen with the tip in the superior vena cava. There is a 8.6 mm noncalcified nodule in the peripheral anterior aspect of the right upper lobe. Tiny nodules are also seen in the superior segment of both lower. 3 mm nodule is also seen in the medial aspect of the left upper lobe. There is no demonstrated pleural abnormality. There are calcifications of the coronary arteries. Normal mediastinum. Normal hilar regions. Normal unenhanced pulmonary arteries. There is atherosclerotic calcification of the aortic arch. Normal osseous structures. Multiple intrahepatic masses are seen in both lobes of the liver. The largest mass in the right lobe measures 7 cm x 5.2 cm. Metastatic deposits should be ruled out. There is evidence of a left perinephric inflammatory changes. Correlation with a CT scan of the abdomen and pelvis is recommended for further evaluation. CT/Chest without Contrast IMPRESSION: Multiple masses are seen in the liver as described. Nonspecific left perinephric stranding. Multiple nodules seen in both lungs the largest measures 8.6 mm and is in the anterior aspect of the right upper lobe. Electronically Signed: Andres Guillory MD at 14:46 EST ,
== END | disposition home or self-care (01) ==
LOC: CT 13:52
PROVIDERS: PCP Internal Medicine; Referring Provider Internal Medicine Hematology & Oncology; Visit Provider Internal Medicine Hematology & Oncology
DX: C25.8 Malignant neoplasm of overlapping sites of pancreas (principal)
CPT/HCPCS: 71250

== ENCOUNTER 2023-10-27 08:57 | Observation (INO) | payer MEDICARE, SELFPAY ==
[2023-10-27] VITALS (11 sets, daily range): BP systolic 99–122; BP diastolic 41–62; PULSE 60–78; RESP 16–18; TEMP 35.7–36.6; O2SAT 95–100; BMI 30.2
--- NOTE | 2023-10-27 09:13 | EKG12_ITS ---
Test Reason : WEAKNESS Blood Pressure : / mmHG Vent. Rate : 061 BPM Atrial Rate : 061 BPM P-R Int : 150 ms QRS Dur : 098 ms QT Int : 386 ms P-R-T Axes : 074 005 -42 degrees QTc Int : 388 ms Normal sinus rhythm Inferior infarct , age undetermined Cannot rule out Anterior infarct , age undetermined Abnormal ECG Confirmed by ARELI RODAS, TRICIA ([id number]), sound editor CRESCENCIO EVANS ([id number]) on 11/07/2023 8:41:48 AM Referred By: Confirmed By:TRICIA SINGLETON MD
--- NOTE | 2023-10-27 09:17 | EDS_ITS ---
HPI History of Present Illness Chief Complaint: Weakness Detail of Chief Complaint: Generalized weakness. Fatigue. Informant: patient and family Onset/Context/Timing Onset: Days Context: Gradual Onset Timing: Continuous Current Severity: Moderate Maximum Severity: Moderate Narrative Narrative: 73-year-old female diagnosed with stage IV pancreatic cancer with metastases about a month ago. She has a history of anemia, CAD, diabetes, hypertension and prior CA. She has chronic diarrhea. She was supposed to start her first treatment of chemotherapy today. Because she felt so weak and fatigued when she went to the [facility] they transferred her over to the emergency department. She denies any vomiting. She denies any fever. She denies any chest pain. Just states she feels worn out. Prior similar symptoms: No Recent Illness/Hospitalization: Yes PFSH PFS Medical History Anemia Arthritis Atherosclerosis of [place] coronary artery of [place] heart without angina pectoris (02/2011) Back pain Bladder disease Cardiology follow-up encounter Diarrhea Dietary restriction Essential (primary) hypertension Fatty liver Heartburn High cholesterol History of echocardiogram History of edema History of heart attack History of renal disease History of stress test Hyperlipidemia Insulin dependent diabetes mellitus Liver mass Non-smoker Obesity Old inferior wall myocardial infarction Open wound Pancreatic cancer Post-menopausal Shortness of breath on exertion Syncope Type 2 diabetes mellitus Walker as ambulation aid Wears dentures Wears glasses Wears partial dentures Home Medications atorvastatin 40 mg tablet 40 mg PO QHS 07/12/15 [History Last Taken 10/26/23] metformin 1,000 mg tablet 1,000 mg PO BIDCM 07/12/15 [History Last Taken 10/27/23] metoprolol tartrate 50 mg tablet 50 mg PO BID 07/12/15 [History Last Taken 10/27/23] losartan 25 mg tablet 25 mg PO QDAY 06/25/18 [History Last Taken 10/27/23] nitroglycerin 0.4 mg sublingual tablet 0.4 mg sublingual Q5-15M PRN chest pain #25 tabs 06/25/18 [Rx Last Taken Unknown] dulaglutide 0.75 mg/0.5 mL subcutaneous pen injector (Trulicity) 3 mg subcut SA 06/24/21 [History Last Taken 09/30/23] baclofen 10 mg tablet 10 mg PO DAILY PRN muscle spasm 10/02/23 [History Last Taken Unknown] glipizide 10 mg tablet 10 mg PO BID 10/02/23 [History Last Taken 10/27/23] omeprazole 40 mg capsule,delayed release 40 mg PO DAILY 10/02/23 [History Last Taken 10/27/23] oxycodone-acetaminophen 5 mg-325 mg tablet 1 tab PO DAILY PRN pain 10/02/23 [History Last Taken 09/28/23] insulin glargine 100 unit/mL (3 mL) subcutaneous pen (Lantus Solostar U-100 Insulin) 24 unit subcut DAILY 10/19/23 [History Last Taken 10/26/23] thauqk-shughcst-fgivagp 24,000-76,000-120,000 unit capsule,delayed rel (Creon) 2 cap PO TID 10/27/23 [History Last Taken 10/27/23] ondansetron HCl 8 mg tablet 8 mg PO Q8H PRN nausea and vomiting 10/27/23 [History Last Taken Unknown] Allergy/AdvReac Type Severity Reaction Status Date / Time ciprofloxacin [From Cipro] Allergy Swelling Verified 10/27/23 08:58 ciprofloxacin HCl Allergy Swelling Verified 10/27/23 08:58 [From Cipro] ramipril [From Altace] AdvReac Other Verified 10/27/23 08:58 Family History Brother CAD (coronary artery disease) CABG in his 40's Diabetes Surgical History History of appendectomy History of carpal tunnel surgery of left wrist History of carpal tunnel surgery of right wrist History of coronary artery stent placement (02/2011) History of esophagogastroduodenoscopy (EGD) Hx of cholecystectomy Hx of colonoscopy Hx of left cataract extraction Hx of right cataract extraction Social History Smoking Status: Never smoker ROS ROS ED ROS Narrative Generalized fatigue. Review of Systems ROS Unobtainable: Denies due to encephalopathy Constitutional Constitutional ED: Denies chills or fever(s) Eyes Eyes: Denies blurry vision ENT ENT ED: Denies ear pain Cardiovascular Cardiovascular: Denies chest pain Respiratory/Chest Respiratory/Chest: Denies cough or dyspnea Gastrointestinal Gastrointestinal: Reports diarrhea; Denies abdominal pain, constipation, melena, nausea or vomiting Genitourinary Genitourinary ED: Denies dysuria or hematuria Musculoskeletal Musculoskeletal: Denies arthralgias Integumentary Denies abscess or Abrasions Neurologic Neurologic: Denies headache(s) Psychiatric Psychiatric: Denies anxiety Endocrine Endocrinology: Denies cold intolerance Hematologic/Lymphatic Hematologic/Lymphatic: Reports none Allergic/Immunologic Allergic/Immunologic ED: Denies mouth swelling, tongue swelling or urticaria EXAM Physical Exam Narrative Exam Narrative: 73-year-old female initially hypotensive pressure 99/41. Afebrile. Pulse ox 95% on room air no hypoxia. She does not look septic. H EENT exam unremarkable. Neck nontender no JVD. Lungs clear to auscultation bilaterally. Heart regular rhythm rate about 65 no murmur. Chest wall and ribs nontender. Abdomen soft nontender. No peritoneal signs. Moving all 4 extremities. She agudelo s cupola liner helper strength. She has dorsi and plantarflexion. There is trace edema both lower extremities. Equal symmetrical. Calves are nontender without cords. Neurologically she is awake alert. Answering questions and moving all 4 extremities. She just seems very weak. Const Vital Signs: 10/27/23 08:59 10/27/23 09:05 10/27/23 09:05 Temperature 97.8 F 97.8 F Temperature Source Temporal Temporal Pulse Rate 60 65 Respiratory Rate 16 18 Respiratory Effort Normal Respiratory Pattern Normal Blood Pressure 99/41 L 99/41 L Blood Pressure Mean 60 60 Pulse Ox 95 99 Oxygen Delivery Method Room Air Room Air 10/27/23 10:05 Temperature 97.8 F Temperature Source Temporal Pulse Rate 64 Respiratory Rate 18 Respiratory Effort Respiratory Pattern Blood Pressure 116/46 L Blood Pressure Mean 69 Pulse Ox 99 Oxygen Delivery Method Room Air Positive well nourished and well developed; Negative for cachectic, contractures or unkempt General Appearance ED: well developed and NAD; Negative for unkempt, cachectic, contractures, cyanotic, diaphoretic or pallor Nutritional Appearance: Negative for cachectic HEENT Reports moist mucous membranes Negative for trauma or tenderness Eyes PERRL and EOMs intact bilaterally General Eye ED: Negative for pale conjunctiva or scleral icterus Neck no lymphadenopathy, supple and no JVD General: Negative for tenderness Lymph Lymphatic: Negative for other Chest Wall inspection of chest normal and palpation of chest normal Chest: Negative for other Resp normal respiratory effort and clear to auscultation bilaterally Effort and Inspection: Negative for retractions Auscultation: Negative for rales, rhonchi or wheezes Cardio regular rate, regular rhythm, S1 normal heart sound, S2 normal heart sound and no murmurs GI normal to inspection, nondistended, normoactive bowel sounds, non-tender, non-distended and no masses Inspection: Negative for abdominal distention Auscultation: normoactive bowel sounds Palpation: soft; Negative for tender, guarding or rebound tenderness present Back/Spine no CVA tenderness General Back: Negative for CVA tenderness Cervical Spine: Negative for cervical spine tenderness Thoracic Spine / Upper Back: Negative for thoracic spinal tenderness Lumbar Spine / Lower Back: Negative for lumbar spinal tenderness Extremity Negative for normal to inspection Extremity Narrative: Trace edema bilaterally. General Extremety ED: Yes edema General Extremity: edema Neuro oriented x3 and CN's II-XII intact bilaterally Sensorium / Orientation: alert; Negative for orientation impaired, lethargic or stuporous Motor Exam: general weakness Psych mental status grossly normal Appearance: Negative for unkempt Attitude: No agitated Mood & Affect: Negative for depressed, anxious or tearful Skin no rashes or lesions noted, no wounds and skin turgor normal General Skin Exam: Negative for jaundice or pallor Lesions: No lesion noted Rashes: No rashes noted Trauma: Negative for abrasion Wounds: Negative for wounds noted MDM MDM MDM Narrative Medical decision making narrative: 73-year-old female with stage IV pancreatic cancer with generalized weakness. Screening labs EKG and chest x-ray being obtained. There is nothing specific on her exam and she just seems generally weak. This could be infectious etiology, dehydration versus other causes. Patient has received almost a liter of normal saline she will be given a second. She is being started on broad-spectrum antibiotics for suspected sepsis with leukocytosis and hypotension. She will be started on Zosyn and vancomycin. I discussed her test results with her. Have spoken to the hospitalist. She will be admitted to the PCU currently. Her pressure is currently over 100. Urine and blood cultures are being sent. History & Record Review Discussion w/independent historian: Patient and Family Additional record(s) reviewed:: Prior inpatient record, Prior outpatient record, Prior ED visit, Prior labs and No prior records Lab Data Attestation: I reviewed the patient's lab results. Lab results narrative: Chest x-ray unremarkable. Right-sided MediPort. CBC shows an elevated white count of 49,600. H&H 9.1 and 28 which is her baseline chronic anemia. Platelets of 254. Electrolytes show a potassium of 2.9. A gap of 11. A BUN and creatinine of 56 and 2.1 consistent with dehydration and acute kidney injury. Glucose is elevated to 72 she is diabetic. Lactic acid is elevated 3.5. Liver enzymes show an alk phos of 493. AST is 78. Her lipase is normal at 42. UA is negative except for 2+ bacteria. No white or red cells. No nitrites. Labs: Laboratory Results - last 24 hr 10/27/23 10/27/23 09:40 10:29 WBC 49.6 H* RBC 3.49 L Hgb 9.1 L Hct 28.9 L MCV 82.8 MCH 26.1 L MCHC 31.5 L RDW Std Deviation 50.1 H RDW Coeff of Tiana 17.4 H Plt Count 254 MPV 10.3 Immature Gran % (Auto) 3.400 H Neut % (Auto) 92.2 H Lymph % (Auto) 1.9 L [place] % (Auto) 2.4 Eos % (Auto) 0.0 Baso % (Auto) 0.1 Absolute Neuts (auto) 45.8 H Absolute Lymphs (auto) 0.92 Nucleated RBC % 0 Differential Comment SCANNED Diff Path Review May foll Sodium 138 Potassium 2.9 L Chloride 109 H Carbon Dioxide 18.0 L Anion Gap 11 BUN 56 H Creatinine 2.11 H Estim Creat Clear Calc 22.29 Est GFR (MDRD) Af Amer 29 L Est GFR (MDRD) Non-Af 24 L BUN/Creatinine Ratio 26.5 H Glucose 272 H Lactic Acid 3.5 H* Calcium 10.9 H Total Bilirubin 0.70 AST 78 H ALT 54 Alkaline Phosphatase 493 H Troponin I High Sens 23 Total Protein 6.1 L Albumin 2.4 L Globulin 3.7 Albumin/Globulin Ratio 0.6 L Lipase 42 Urine Color Yellow Urine Clarity Sl. Cloudy Urine pH 5.0 Ur Specific [place] 1.020 Urine Protein 100 H Urine Glucose (UA) 250 H Urine Ketones 5 H Urine Occult Blood 50 H Urine Nitrite Negative Urine Bilirubin Negative Urine Urobilinogen Normal Ur Leukocyte Esterase Negative Urine RBC 0-5 SEEN Urine WBC 0-5 SEEN Ur Squamous Epith Cells 0-5 SEEN Amorphous Sediment 1+ Urine Bacteria 2+ Urine Mucus 1+ Radiography Chest X-Ray - ED: 1 View, Read by ED Physician, Read by Radiologist, Lungs, Bony Structures, No Acute Disease and Chronic Changes Diagnostic Testing: Clinical Impression(s) from Imaging Studies Chest X-Ray 10/27/23 09:25 IMPRESSION: Stable examination. No acute abnormality is seen. Electronically Signed: Andres Guillory MD at 9:42 EST , Chest x-ray, portable, single view, interpreted by myself and radiologist shows no acute abnormality. Normal cardiac silhouette. Normal lung turner. Right- sided Mediport. Rhythm Strip Rhythm Strip: Sinus Rhythm Rate: 61 Ectopy: None EKG Initial EKG: Attestation: I personally reviewed and interpreted this EKG as follows: Interpretation: Sinus Rhythm and No Acute Injury Pattern Comments: Normal sinus rhythm rate of 61 no acute signs of CA, ischemia or dysrhythmia. Critical Care Time Critical Care Time: Yes Critical care time (excluding procedures): 30-74 minutes, Including time spent:, Discussing w/Patient &/or Family/Propagator, Discussing w/Consultants, Arranging Admission or Transfer, Performing Direct Patient Care at Bedside and - (35 min) Discharge Plan Dx/Rx/DC Orders Clinical Impression: Acute kidney injury, Acute hypotension, Acute dehydration, Leukocytosis, Sepsis, History of pancreatic cancer, Acute hypokalemia Disposition Disposition: [facility]
--- NOTE | 2023-10-27 09:25 | RAD_ITS ---
STUDY: X-RAY CHEST REASON FOR EXAM: Female, 73 years old. Weakness TECHNIQUE: Single AP portable view of the chest. COMPARISON: Comparison is made with prior study October 20, 2023. FINDINGS: A right-sided portacatheter is seen with the tip at the junction of the superior vena cava and right atrium. The lungs are clear and expanded. There is no demonstrated pleural abnormality. Normal size heart. Normal mediastinum and vira. Normal visualized pulmonary arteries. There is atherosclerotic calcification of the aortic arch with tortuosity. There are diffuse degenerative changes of the visualized thoracic spine. Normal visualized ribs, clavicles, and shoulders. There is no demonstrated abnormality of the visualized soft tissue structures of the upper abdomen. RAD/Chest 1 View (Portable) IMPRESSION: Stable examination. No acute abnormality is seen. Electronically Signed: Andres Guillory MD at 9:42 EST ,
[2023-10-27] MEDS: 0.9% Normal Saline (500mL Bag) 500 ML 1000 ML IV (09:44)
[2023-10-27 09:48] LABS: Absolute Lymphocyte Count 0.92 X10^3/uL (0.83-4.51); Absolute Neutrophil Count 45.8 X10^3/uL (2.0-7.7); Basophil# 0.04 X10^3/uL; Basophil% 0.1 % (0-1); Eosinophil# 0.02 X10^3/uL; Hematocrit 28.9 % (37-47); Hemoglobin 9.1 g/dL (12.0-15.0); Lymphocyte # 0.92 X10^3/ul (0.83-4.51); Lymphocyte % 1.9 % (19-41); Mean Corp Hgb Conc 31.5 g/dL (32-36); Mean Corpuscular Hgb 26.1 pg (27.0-32.0); Mean Corpuscular Volume 82.8 fL (81-99); Mean Platelet Vol. 10.3 fl (6.2-12.0); Monocyte# 1.19 X10^3/uL; Monocyte% 2.4 % (0-10); NRBC Flagged by Analyzer 0 % (0-5); Neutrophil % 92.2 % (47-70); POSITIVE COUNT YES; POSITIVE DIFFERENTIAL YES; POSITIVE MORPHOLOGY YES; Platelet Count 254 K/mm3 (150-450); RBC Distribution Width CV 17.4 % (11.6-14.6); RBC Distribution Width SD 50.1 fl (35.1-43.9); Red Blood Count 3.49 M/mm3 (4.2-5.4)
[2023-10-27 09:50] LABS: Differential Indicated SCAN CRITERIA MET; White Blood Count 49.6 K/mm3 (4.4-11.0)
[2023-10-27 10:02] LABS: Differential Comment SCANNED
[2023-10-27 10:05] LABS: ALB/GLOB Ratio 0.6 RATIO (0.9-2.4); AST(SGOT) 78 U/L (15-37); Alanine Aminotransfer ALT/SGPT 54 U/L (13-56); Albumin, Serum 2.4 g/dL (3.2-5.0); Alkaline Phosphatase 493 U/L (45-117); Anion Gap 11 (5-15); BUN 56 mg/dL (7-18); BUN/Creat Ratio 26.5 RATIO (10-20); Calcium,Total 10.9 mg/dL (8.5-10.1); Chloride 109 mmol/L (98-107); Creatinine, Serum 2.11 mg/dL (0.55-1.02); EST Glomerular Filtration Rate 24 mL/min (>60); Est Glom Filt Rate - Afr Amer 29 mL/min (>60); Estimated Creatinine Clearance 22.29 ml/min; Globulin 3.7 g/dL (2.2-4.2); Glucose 272 mg/dL (74-106); Lipase 42 U/L (13-75); Potassium 2.9 mmol/L (3.5-5.1); Protein, Total 6.1 g/dL (6.4-8.2); Sodium Level 138 mmol/L (136-145); Troponin-I HS 23 pg/mL (3.0-54.0)
[2023-10-27 10:13] LABS: Lactic Acid 3.5 mmol/L (0.4-1.9)
--- NOTE | 2023-10-27 10:13 | ED.RN ---
dr. isaacs notiffied of lactate of 3.5
[2023-10-27 10:38] LABS: Color, Urine Yellow (Yellow); Glucose, Dipstick 250 mg/dl (Normal); Ketone-Dipstick 5 mg/dl (Negative); Leukocyte Esterase-Dipstick Negative /ul (Negative); Nitrite-Dipstick Negative (Negative); Occult Blood-Urine 50 /ul (Negative); Protein-Dipstick 100 mg/dl (Negative); Urine Bilirubin Dipstick Negative (Negative); Urine Clarity Sl. Cloudy (Clear); Urine Urobilinogen Normal (Normal)
[2023-10-27 10:44] LABS: Red Blood Cells-Urine 0-5 SEEN /hpf (0-5); White Blood Cells 0-5 SEEN /hpf (0-5)
[2023-10-27 10:45] LABS: Amorphous Sediment 1+; Bacteria 2+ /hpf (None Seen); Mucous, Urine 1+ /hpf (<or=2+); Squamous Epithelial Cells - UA 0-5 SEEN /hpf (5-10)
[2023-10-27] MEDS: Piperacil/Tazobactam 4.5 GM in 0.9% Normal Saline (100mL MB+) 100 ML IV (10:50)
[2023-10-27] MEDS: 0.9% Normal Saline (1000mL) 1,000 ML 999 ML IV (10:50)
[2023-10-27] MEDS: Vancomycin HCl 1,500 MG in 0.9% Normal Saline (500mL Bag) 500 ML 250 MG IV (10:56)
--- NOTE | 2023-10-27 11:01 | NURSING ---
PCU KOTSONIS SEPSIS, LEUKOCYTOSIS, DEHYDRATION, COLEMAN, PANC CA STAGE 4
[2023-10-27] MEDS: 0.9% Normal Saline (1000mL) 1,000 ML 125 ML IV ×2 (12:51→20:49)
[2023-10-27] MEDS: Creon 24,000 unit DR Capsule 2 CAP PO ×2 (12:59→17:10)
[2023-10-27] MEDS: Heparin Injection (Vial) 5,000 UNIT/ML VIAL 5000 UNIT SC ×2 (12:59→20:58)
[2023-10-27] MEDS: Oxycodone/Apap 5/325 Tablet PO ×2 (13:37→17:24)
[2023-10-27 13:44] LABS: Reflex Lactate? Y
--- NOTE | 2023-10-27 13:48 | PHA.PHARE_ITS ---
Consult Antibiotic Management Pharmacy has been consulted to manage selected antiobiotic: Vancomycin Type of Intervention Type of Consult: New start Suspected Infection Suspected Infection: Sepsis Prior Doses of Antibiotics Prior Doses of Antibiotics Received/Current Regimen: received vanc 1500mg IV x1 in E.R. starting at 10:56 today Labs Labs: Sodium 138 mmol/L (136-145) 10/27/23 09:40 Potassium 2.9 mmol/L (3.5-5.1) L 10/27/23 09:40 Chloride 109 mmol/L (98-107) H 10/27/23 09:40 Carbon Dioxide 18.0 mmol/L (21.0-32.0) L 10/27/23 09:40 Anion Gap 11 (5-15) 10/27/23 09:40 BUN 56 mg/dL (7-18) H 10/27/23 09:40 Creatinine 2.11 mg/dL (0.55-1.02) H 10/27/23 09:40 Est GFR (MDRD) Af Amer 29 mL/min (>60) L 10/27/23 09:40 Est GFR (MDRD) Non-Af 24 mL/min (>60) L 10/27/23 09:40 BUN/Creatinine Ratio 26.5 RATIO (10-20) H 10/27/23 09:40 Glucose 272 mg/dL (74-106) H 10/27/23 09:40 Microbiology Microbiology: Microbiology 10/27/23 09:40 Nasal Secretion SARS-CoV-2 & FLU Antigen (Rapid) - Final Dosing Weight Weight used for dosin.3 kg Estimated Creatinine Clearance Estimated Creatinine Clearance: 17.6ml/min Goal Trough Goal Trough: 15-20 mcg/mL Pharmacy Plan for Drug Dosing Pharmacy Plan for Drug Dosing: The patient's CrCl is <20 so will dose off random levels for now per [facility] dosing protocol. Will check a random vanc level tomorrow morning at 0600 with AM labs. Will use that level to determine if a dose should be given tomorrow. The [facility] CrCl calculator was used to calculate CrCl since the patient's height < 60 inches and adjusted body weight was also used. Pharmacy Service will continue to monitor and adjust dosing as required. Follow-Up Labs Follow-Up Labs: Trough: Vancomycin (random) Date/Time Labs Ordered Labs to be done on [date and time ordered]: 12/23/23 0650
--- NOTE | 2023-10-27 13:58 | CHAPLAIN ---
Type of Pastoral Visit _x__ Initial Visit ___ Follow-up Visit ___ On-call Visit ___ General Patient Visit ___ Spiritual Assessment ___ Family Conference ___ Bereavement ___ Rapid Response ___ Code Blue ___ Other (describe below) Pastoral Care Referral From _x__ Patient ___ Family ___ Nurse ___ Physician ___ [employer] ___ Contract Clerk ___ Other (describe below) Sacrament/Intervention _x__ Active listening ___ Anointing ___ Voodoo ___ Bereavement ___ Communion _x__ Monica exploration ___ ___ Life review _x__ Prayer ___ Reconciliation ___ Sacrament of Sick _x__ Supportive presence ___ Wedding ___ Other (describe below) Pastoral Comments patient is awake but trying to get some rest; pt explains change of plans from receiving first chemo treatment today and instead being admitted to the hospital; pt is feeling very low physically and emotionally; pt has a friend at bedside; pt reports that many people are praying for her and that many have offered care and support; these comments bring tears to her eyes; explored with patient how she is coping with the cancer diagnosis that is new; pt states that she is in a quick decline and there isn't much they can do; pt reports that she feels like this is going to go quickly; again explored pt's feelings and how she is finding strength or is coping with these thoughts; pt lists several positive support including having monica in God; pt is connected to a local congregation and did request that the system support administrator be notified that she was admitted; call to system support administrator was completed; prayer was given for patient; offer of ongoing support given as well
--- NOTE | 2023-10-27 15:13 | HP.PCM.HOS_ITS ---
HPI - General General Date of Admission: 10/27/23 HPI Narrative IRA LEBRON, is a 73 F who presents to the hospital not feeling well. She states that she had presented to her oncologist office for her first day of chemotherapy however she looks so unwell that they sent her here to the hospital. She stated that if she had not been sent in by the oncologist that she would have come in on her own accord because she has not been feeling well for the last couple of days, and has been very fatigued. She does have chronic diarrhea since February as she has stage IV metastatic pancreatic cancer but she says that her diarrhea has actually improved over the last couple of days. In the ER she was found to have a leukocytosis of 49,000 chest x-ray was unremarkable as was UA. Multiple blood cultures were obtained as well as urine culture, she was started on vancomycin and Zosyn unfortunate this time we do not have a clear source of infection. [facility] Medical History Anemia Arthritis Atherosclerosis of [place] coronary artery of [place] heart without angina p ectoris (02/2011) Back pain Bladder disease Cardiology follow-up encounter Diarrhea Dietary restriction Essential (primary) hypertension Fatty liver Heartburn High cholesterol History of echocardiogram History of edema History of heart attack History of renal disease History of stress test Hyperlipidemia Insulin dependent diabetes mellitus Liver mass Non-smoker Obesity Old inferior wall myocardial infarction Open wound Pancreatic cancer Post-menopausal Shortness of breath on exertion Syncope Type 2 diabetes mellitus Walker as ambulation aid Wears dentures Wears glasses Wears partial dentures Home Medications atorvastatin 40 mg tablet 40 mg PO QHS 07/12/15 [History Last Taken 10/26/23] metformin 1,000 mg tablet 1,000 mg PO BIDCM 07/12/15 [History Last Taken 10/07 12/29] metoprolol tartrate 50 mg tablet 50 mg PO BID 07/12/15 [History Last Taken 10/27/23] losartan 25 mg tablet 25 mg PO QDAY 06/25/18 [History Last Taken 10/27/23] nitroglycerin 0.4 mg sublingual tablet 0.4 mg sublingual Q5-15M PRN chest pain #25 tabs 06/25/18 [Rx Last Taken Unknown] dulaglutide 0.75 mg/0.5 mL subcutaneous pen injector (Trulicity) 3 mg subcut SA 06/24/21 [History Last Taken 09/30/23] baclofen 10 mg tablet 10 mg PO DAILY PRN muscle spasm 10/02/23 [History Last Taken Unknown] glipizide 10 mg tablet 10 mg PO BID 10/02/23 [History Last Taken 10/27/23] omeprazole 40 mg capsule,delayed release 40 mg PO DAILY 10/02/23 [History Last Taken 10/27/23] oxycodone-acetaminophen 5 mg-325 mg tablet 1 tab PO DAILY PRN pain 10/02/23 [History Last Taken 09/28/23] insulin glargine 100 unit/mL (3 mL) subcutaneous pen (Lantus Solostar U-100 Insulin) 24 unit subcut DAILY 10/19/23 [History Last Taken 10/26/23] muapip-kumbyuwn-puspyoe 24,000-76,000-120,000 unit capsule,delayed rel (Creon) 2 cap PO TID 10/27/23 [History Last Taken 10/27/23] ondansetron HCl 8 mg tablet 8 mg PO Q8H PRN nausea and vomiting 10/27/23 [History Last Taken Unknown] Allergy/AdvReac Type Severity Reaction Status Date / Time ciprofloxacin [From Cipro] Allergy Swelling Verified 10/27/23 08:58 ciprofloxacin HCl Allergy Swelling Verified 10/27/23 08:58 [From Cipro] ramipril [From Altace] AdvReac Other Verified 10/27/23 08:58 Family History Brother CAD (coronary artery disease) CABG in his 40's Diabetes Surgical History History of appendectomy History of carpal tunnel surgery of left wrist History of carpal tunnel surgery of right wrist History of coronary artery stent placement (02/2011) History of esophagogastroduodenoscopy (EGD) Hx of cholecystectomy Hx of colonoscopy Hx of left cataract extraction Hx of right cataract extraction Social History Smoking Status: Never smoker ROS Constitutional Constitutional: Reports fatigue, malaise and weakness; Denies chills or fever(s) Eyes Eyes: Denies blurry vision ENT HEENT: Denies headache(s) or nasal discharge Cardiovascular Cardiovascular: Denies chest pain, dyspnea on exertion or syncope Respiratory/Chest Respiratory/Chest: Denies cough, shortness of breath at rest or shortness of breath with exertion Gastrointestinal Gastrointestinal: Reports diarrhea; Denies constipation, nausea or vomiting Genitourinary Genitourinary: Denies dysuria Neurologic Neurologic: Denies focal weakness, numbness or tremor(s) Psychiatric Psychiatric: Denies anxiety or depression Vital Signs Vital Signs Vital Signs: 10/27/23 08:59 10/27/23 09:05 10/27/23 09:05 Temperature 97.8 F 97.8 F Temperature Source Temporal Temporal Pulse Rate 60 65 Respiratory Rate 16 18 Respiratory Effort Normal Respiratory Depth Respiratory Pattern Normal Blood Pressure 99/41 L 99/41 L Blood Pressure [BP] Blood Pressure Mean 60 60 Blood Pressure Mean [BP] Blood Pressure Source [BP] Blood Pressure Position [BP] Blood Pressure Location [BP] Pulse Ox 95 99 Oxygen Delivery Method Room Air Room Air 10/27/23 10:05 10/27/23 11:00 10/27/23 11:30 Temperature 97.8 F 96.7 F L Temperature Source Temporal Oral Pulse Rate 64 78 78 Respiratory Rate 18 16 18 Respiratory Effort Respiratory Depth Respiratory Pattern Blood Pressure 116/46 L 119/47 L Blood Pressure [BP] 122/62 H Blood Pressure Mean 69 71 Blood Pressure Mean [BP] 82 Blood Pressure Source [BP] Monitor Blood Pressure Position [BP] Semi-Fowlers Blood Pressure Location [BP] Right Arm Pulse Ox 99 98 100 Oxygen Delivery Method Room Air Room Air Room Air 10/27/23 12:38 Temperature Temperature Source Pulse Rate 78 Respiratory Rate 18 Respiratory Effort Normal Respiratory Depth Normal Respiratory Pattern Normal Blood Pressure Blood Pressure [BP] Blood Pressure Mean Blood Pressure Mean [BP] Blood Pressure Source [BP] Blood Pressure Position [BP] Blood Pressure Location [BP] Pulse Ox 100 Oxygen Delivery Method Room Air Weight Weight: 135 lb 2.294 oz Body Mass Index (BMI) 30.2 Physical Exam Narrative General: Alert, Oriented x3, Cooperative, appears fatigued HEENT: Atraumatic, PERRLA, EOMI, Normocephalic Oral: Dry mucosa Neck: Supple, No JVD Lungs: Diminished, Normal air movement, No rhonchi, No wheeze, No rales Cardiovascular: Regular rate, Regular Rhythm, Normal S1, Normal S2, No murmurs Abdomen: Soft, slight right lower quadrant tender, Non-Distended, No Hepato- splenomegaly Extremities: No edema, Capillary Refill Less than 3 Seconds Skin: No rashes, No breakdown Musculoskeletal: No Tenderness to Palpation of Joints or Extremities Neurological: Moves all extremities, no focal deficits, Sensory exam intact to light touch and pain Psych/Mental Status: Normal Affect, but fatigued Results Lab / Micro Data 10/27/23 09:40 10/27/23 09:40 Labs: Laboratory Results - last 24 hr 10/27/23 09:40: WBC 49.6 H*, RBC 3.49 L, Hgb 9.1 L, Hct 28.9 L, MCV 82.8, MCH 26.1 L, MCHC 31.5 L, RDW Std Deviation 50.1 H, RDW Coeff of Tiana 17.4 H, Plt Count 254, MPV 10.3, Immature Gran % (Auto) 3.400 H, Neut % (Auto) 92.2 H, Lymph % (Auto) 1.9 L, [place] % (Auto) 2.4, Eos % (Auto) 0.0, Baso % (Auto) 0.1, Absolute Neuts (auto) 45.8 H, Absolute Lymphs (auto) 0.92, Nucleated RBC % 0, Di fferential Comment SCANNED, Diff Path Review March, Sodium 138, Potassium 2.9 L, Chloride 109 H, Carbon Dioxide 18.0 L, Anion Gap 11, BUN 56 H, Creatinine 2.11 H, Estim Creat Clear Calc 22.29, Est GFR (MDRD) Af Amer 29 L, Est GFR (MDRD) Non-Af 24 L, BUN/Creatinine Ratio 26.5 H, Glucose 272 H, Lactic Acid 3.5 H*, Calcium 10.9 H, Total Bilirubin 0.70, AST 78 H, ALT 54, Alkaline Phosphatase 493 H, Troponin I High Sens 23, Total Protein 6.1 L, Albumin 2.4 L, Globulin 3.7, Albumin/Globulin Ratio 0.6 L, Lipase 42 10/27/23 10:29: Urine Color Yellow, Urine Clarity Sl. Cloudy, Urine pH 5.0, Ur Specific [place] 1.020, Urine Protein 100 H, Urine Glucose (UA) 250 H, Urine Ketones 5 H, Urine Occult Blood 50 H, Urine Nitrite Negative, Urine Bilirubin Negative, Urine Urobilinogen Normal, Ur Leukocyte Esterase Negative, Urine RBC 0-5 SEEN, Urine WBC 0-5 SEEN, Ur Squamous Epith Cells 0-5 SEEN, Amorphous Sediment 1+, Urine Bacteria 2+, Urine Mucus 1+ Micro: Microbiology 10/27/23 09:40 Nasal Secretion SARS-CoV-2 & FLU Antigen (Rapid) - Final Rhythm Strip Rhythm Strip: Sinus Rhythm Rate: 61 Ectopy: None Imagaing Radiology Impression Chest X-Ray 10/27/23 09:25 IMPRESSION: Stable examination. No acute abnormality is seen. Electronically Signed: Andres Guillory MD at 9:42 EST , Assessment & Plan Assessment/Plan (1) Acute kidney injury: PLAN: Plan 1. Stage IV metastatic pancreatic cancer with COLEMAN and sepsis of unknown origin ? Unclear as to the source of infection at this time if there is an infection versus just advancing and progressive cancer ? Today was supposed be her first day of chemotherapy I discussed with her, and her family for 20 minutes advance care planning options including hospice currently right now she would just like to feel better before making any further decisions but it does not sound like she would like to proceed with chemotherapy ? She was just diagnosed with pancreatic cancer about a month ago and it was already in her liver and lungs ? We will continue with aggressive IV fluids as well as vancomycin and Zosyn IV ? Blood cultures and urine cultures are pending ? Renal function baseline is around 1 currently today at 2.11 ? She is not currently hypoxic to indicate any pulmonary source of her white count ? Given her diarrhea and her cancer and the fact that she is immunocompromised we will obtain C. difficile and enteric pathogen panel ? Will place on a regular diet and continue with her Creon 2. HTN/HLD ? Can continue with her home Lipitor ? We will hold her blood pressure medications given her dehydration and COLEMAN ? We will monitor make adjustments as necessary 3. DM2 ? We will continue with her long-acting insulin but decrease the dose secondary to her likely poor p.o. intake ? Sign scale insulin ? Accu-Cheks ACHS ? We will hold her metformin given her COLEMAN ? We will monitor make adjustments as necessary 4. GERD ? Stable ? Continue with PPI DVT: Heparin 75 minutes was spent on direct patient care, including documentation as well as chart review and collaboration with colleagues Sepsis Attestation Sepsis Attestation: Agree w/Sepsis Sepsis Organ Dysfunction Criteria Present: Lactic Acid > 2 mmol/L and Serum CO2 < 20 mmol/L (on BMP) Charges/Coding Visit Charges Inpatient E&M: 34816 Init Hosp L3 Procedures Hospitalists Procedures: 26675 Advncd Care Plan 30 Min
[2023-10-27 15:47] LABS: Magnesium 1.3 mg/dL (1.6-2.6); Phosphorus 2.1 mg/dL (2.5-4.9)
[2023-10-27] MEDS: Magnesium Sulfate 4gm/100mL 4 GM/100 ML IV.SOLN. IV (17:03)
[2023-10-27] MEDS: Potassium Phosphate 30 MMOL in 0.9% Normal Saline (250mL Bag) 250 ML 42 MMOL IV (17:06)
[2023-10-27] MEDS: Insulin Lispro 100 UNIT/ML INSULN.PEN SC ×2 (17:23→21:02)
[2023-10-27 17:30] LABS: Bedside Glucose 229 mg/dL (74-106)
[2023-10-27] MEDS: Piperacil/Tazobactam 3.375 GM in 0.9% Normal Saline (50mL MB+) 50 ML IV (20:55)
[2023-10-27] MEDS: Insulin Glargine-YFGN 100 UNIT/ML Pen 10 UNIT SC (21:03)
[2023-10-27 21:28] LABS: Bedside Glucose 201 mg/dL (74-106)
[2023-10-28 05:30] VITALS: BP 123/54; PULSE 63; RESP 14; TEMP 36.6; O2SAT 98
[2023-10-28] MEDS: Heparin Injection (Vial) 5,000 UNIT/ML VIAL 5000 UNIT SC (05:55)
[2023-10-28 06:01] LABS: Absolute Lymphocyte Count 0.97 X10^3/uL (0.83-4.51); Absolute Neutrophil Count 36.9 X10^3/uL (2.0-7.7); Basophil# 0.19 X10^3/uL; Basophil% 0.5 % (0-1); Eosinophil# 0.05 X10^3/uL; Eosinophils% 0.1 % (0-5); Hematocrit 29.1 % (37-47); Hemoglobin 8.9 g/dL (12.0-15.0); Lymphocyte # 0.97 X10^3/ul (0.83-4.51); Lymphocyte % 2.4 % (19-41); Mean Corp Hgb Conc 30.6 g/dL (32-36); Mean Corpuscular Hgb 25.7 pg (27.0-32.0); Mean Corpuscular Volume 84.1 fL (81-99); Mean Platelet Vol. 10.6 fl (6.2-12.0); Monocyte# 1.52 X10^3/uL; Monocyte% 3.7 % (0-10); NRBC Flagged by Analyzer 0 % (0-5); Neutrophil # 36.85 X10^3/uL (2.7-7.7); POSITIVE COUNT YES; POSITIVE DIFFERENTIAL YES; Platelet Count 253 K/mm3 (150-450); RBC Distribution Width SD 50.9 fl (35.1-43.9); Red Blood Count 3.46 M/mm3 (4.2-5.4)
[2023-10-28 06:03] LABS: Differential Indicated SCAN CRITERIA MET; White Blood Count 40.9 K/mm3 (4.4-11.0)
[2023-10-28 06:10] LABS: Bedside Glucose 136 mg/dL (74-106)
[2023-10-28 06:12] LABS: Differential Comment SCANNED
[2023-10-28 06:16] LABS: ALB/GLOB Ratio 0.6 RATIO (0.9-2.4); AST(SGOT) 232 U/L (15-37); Alanine Aminotransfer ALT/SGPT 95 U/L (13-56); Albumin, Serum 2.2 g/dL (3.2-5.0); Alkaline Phosphatase 541 U/L (45-117); Anion Gap 9 (5-15); BUN 48 mg/dL (7-18); Calcium,Total 9.8 mg/dL (8.5-10.1); Chloride 119 mmol/L (98-107); EST Glomerular Filtration Rate 26 mL/min (>60); Est Glom Filt Rate - Afr Amer 31 mL/min (>60); Estimated Creatinine Clearance 23.52 ml/min; Globulin 3.5 g/dL (2.2-4.2); Glucose 130 mg/dL (74-106); Magnesium 2.3 mg/dL (1.6-2.6); Potassium 2.9 mmol/L (3.5-5.1); Protein, Total 5.7 g/dL (6.4-8.2); Sodium Level 144 mmol/L (136-145)
[2023-10-28 06:18] LABS: Phosphorus 2.5 mg/dL (2.5-4.9)
[2023-10-28 06:21] LABS: Vancomycin, Random Level 16.8 ug/mL (0.0-15.0)
--- NOTE | 2023-10-28 06:29 | PHA.PHARE_ITS ---
Consult Antibiotic Management Pharmacy has been consulted to manage selected antiobiotic: Vancomycin Type of Intervention Type of Consult: Follow-up Suspected Infection Suspected Infection: Sepsis Labs Labs: Sodium 144 mmol/L (136-145) 10/28/23 05:46 Potassium 2.9 mmol/L (3.5-5.1) L 10/28/23 05:46 Chloride 119 mmol/L (98-107) H 10/28/23 05:46 Carbon Dioxide 16.0 mmol/L (21.0-32.0) L 10/28/23 05:46 Anion Gap 9 (5-15) 10/28/23 05:46 BUN 48 mg/dL (7-18) H 10/28/23 05:46 Creatinine 2.00 mg/dL (0.55-1.02) H 10/28/23 05:46 Est GFR (MDRD) Af Amer 31 mL/min (>60) L 10/28/23 05:46 Est GFR (MDRD) Non-Af 26 mL/min (>60) L 10/28/23 05:46 BUN/Creatinine Ratio 24.0 RATIO (10-20) H 10/28/23 05:46 Glucose 130 mg/dL (74-106) H 10/28/23 05:46 Random Vancomycin 16.8 ug/mL (0.0-15.0) H 10/28/23 05:46 Microbiology Microbiology: Microbiology 10/27/23 17:15 Stool Clostridioides difficile (PCR) - Final 10/27/23 09:40 Nasal Secretion SARS-CoV-2 & FLU Antigen (Rapid) - Final Dosing Weight Weight used for dosin.3 kg Estimated Creatinine Clearance Estimated Creatinine Clearance: 18.5 Goal Trough Goal Trough: 15-20 mcg/mL Pharmacy Plan for Drug Dosing Pharmacy Plan for Drug Dosing: Random vancomycin level, which was 19hrs post-dose, was 16.8. Since her calculated CrCl of 18.5 is still below the 20 threshold we will just give a one- time dose of 1000mg vanco this morning. Another random level will be drawn with a.m. labs tomorrow. Pharmacy Service will continue to monitor and adjust dosing as required. Follow-Up Labs Follow-Up Labs: Trough: Vancomycin (random) Date/Time Labs Ordered Labs to be done on [date and time ordered]: 10/29/23 @0600
[2023-10-28] MEDS: Vancomycin IV 1,000 MG/200 ML BAG 200 MG IV (06:39)
[2023-10-28 08:38] VITALS: BP 106/54; PULSE 67; RESP 24; TEMP 36.8; O2SAT 99
[2023-10-28] MEDS: 0.9% Normal Saline (1000mL) 1,000 ML 125 ML IV (08:43)
[2023-10-28] MEDS: Potassium Chloride 10mEq/100mL 10 MEQ/100 ML IV.SOLN. 100 MEQ IV BOLUS (09:14)
[2023-10-28 09:17] VITALS: BP 106/54; PULSE 67
--- NOTE | 2023-10-28 10:24 | PCM.PN.HOSP ---
Subjective Subjective Having some pain but otherwise resting comfortably Objective Data Objective Data Vital Signs: Vital Signs Temp Pulse Resp BP Pulse Ox O2 Del Method 98.2 F 67 24 H 106/54 L 99 Room Air 10/28/23 08:38 10/28/23 09:17 10/28/23 08:38 10/28/23 09:17 10/28/23 08:38 10/28/23 08:38 Oxygen Delivery Method Room Air Weight: 135 lb 2.294 oz Body Mass Index (BMI) 30.2 Intake & Output: Intake and Output for Last 24 Hours 10/27/23 10/28/23 10/29/23 03:59 03:59 03:59 Intake Total 4195.83 / 4195.83 1120 / 1120 Output Total 1400 / 1400 Balance 2795.83 / 2795.83 1120 / 1120 Medical Nutrition Assessment Dietitian: Malnutrition Criteria Met Start: 10/27/23 15:50 Freq: Status: Active Protocol: Document 10/27/23 15:50 GAYLE (Rec: 10/27/23 15:51 GAYLE [id number]) Nutrition Malnutrition Evidence of Malnutrition Exists Yes Malnutrition (moderate): Chronic Evidenced By Suboptimal Energy Intake ( Moderate),Physical Changes ( Moderate) Clinical Problem Chronic Disease or Condition Related Malnutrition Etiology related to physiological changes decreasing oral intakes Signs/Symptoms as evidenced by mild to moderate muscle and fat wasting per NFPA (temples, buccal, clavicle) as well as decreased oral intakes meeting <75% of estimated nutrient needs for longer than one month. Status Active Problem Recommendation Dietitian Recommendations/Changes Continue with Regular - General diet for liberalization. Client agreed to Ensure Clear w/ breakfast and Magic Cup w/ lunch and dinner to help increase oral intakes. Will continue to follow and modify nutrition interventions as needed. Lab / Micro Data 10/28/23 05:46 10/28/23 05:46 Labs: Laboratory Results - last 24 hr 10/27/23 10:29: Urine Color Yellow, Urine Clarity Sl. Cloudy, Urine pH 5.0, Ur Specific [place] 1.020, Urine Protein 100 H, Urine Glucose (UA) 250 H, Urine Ketones 5 H, Urine Occult Blood 50 H, Urine Nitrite Negative, Urine Bilirubin Negative, Urine Urobilinogen Normal, Ur Leukocyte Esterase Negative, Urine RBC 0-5 SEEN, Urine WBC 0-5 SEEN, Ur Squamous Epith Cells 0-5 SEEN, Amorphous Sediment 1+, Urine Bacteria 2+, Urine Mucus 1+ 10/27/23 14:00: Phosphorus 2.1 L, Magnesium 1.3 L 10/27/23 17:01: POC Glucose 229 H 10/27/23 21:02: POC Glucose 201 H 10/28/23 05:46: WBC 40.9 H*, RBC 3.46 L, Hgb 8.9 L, Hct 29.1 L, MCV 84.1, MCH 25.7 L, MCHC 30.6 L, RDW Std Deviation 50.9 H, RDW Coeff of Tiana 18.0 H, Plt Count 253, MPV 10.6, Immature Gran % (Auto) 3.300 H, Neut % (Auto) 90.0 H, Lymph % (Auto) 2.4 L, [place] % (Auto) 3.7, Eos % (Auto) 0.1, Baso % (Auto) 0.5, Absolute Neuts (auto) 36.9 H, Absolute Lymphs (auto) 0.97, Nucleated RBC % 0, Differential Comment SCANNED, Diff Path Review March, Sodium 144, Potassium 2.9 L, Chloride 119 H, Carbon Dioxide 16.0 L, Anion Gap 9, BUN 48 H, Creatinine 2.00 H, Estim Creat Clear Calc 23.52, Est GFR (MDRD) Af Amer 31 L, Est GFR (MDRD) Non-Af 26 L, BUN/Creatinine Ratio 24.0 H, Glucose 130 H, Calcium 9.8, Phosphorus 2.5, Magnesium 2.3, Total Bilirubin 0.60, AST 232 H, ALT 95 H, Alkaline Phosphatase 541 H, Total Protein 5.7 L, Albumin 2.2 L, Globulin 3.5, Albumin/Globulin Ratio 0.6 L, Random Vancomycin 16.8 H 10/28/23 05:49: POC Glucose 136 H Micro: Microbiology 10/27/23 17:15 Stool Enteric Bacteriology - Final 10/27/23 17:15 Stool Clostridioides difficile (PCR) - Final 10/27/23 09:40 Nasal Secretion SARS-CoV-2 & FLU Antigen (Rapid) - Final Rhythm Strip Rhythm Strip: Sinus Rhythm Rate: 61 Ectopy: None Physical Exam Narrative General: Alert, Oriented x3, Cooperative, appears fatigued HEENT: Atraumatic, PERRLA, EOMI, Normocephalic Oral: Dry mucosa Neck: Supple, No JVD Lungs: Diminished, Normal air movement, No rhonchi, No wheeze, No rales Cardiovascular: Regular rate, Regular Rhythm, Normal S1, Normal S2, No murmurs Abdomen: Soft, slight right lower quadrant tender, Non-Distended, No Hepato-splenomegaly Extremities: No edema, Capillary Refill Less than 3 Seconds Skin: No rashes, No breakdown Musculoskeletal: No Tenderness to Palpation of Joints or Extremities Neurological: Moves all extremities, no focal deficits, Sensory exam intact to light touch and pain Psych/Mental Status: Normal Affect, but fatigued Assessment & Plan Assessment/Plan (1) Acute kidney injury: PLAN: Plan 1. Stage IV metastatic pancreatic cancer with COLEMAN and sepsis of unknown origin ? Unclear as to the source of infection at this time if there is an infection versus just advancing and progressive cancer ? She was just diagnosed with pancreatic cancer about a month ago and it was already in her liver and lungs ? We will continue with aggressive IV fluids as well as vancomycin and Zosyn IV ? Blood cultures and urine cultures are pending ? Renal function baseline is around 1 currently today at 2.11 ? She is not currently hypoxic to indicate any pulmonary source of her white count ? Given her diarrhea and her cancer and the fact that she is immunocompromised we will obtain C. difficile and enteric pathogen panel ? Will place on a regular diet and continue with her Creon 2. HTN/HLD ? Can continue with her home Lipitor ? We will hold her blood pressure medications given her dehydration and COLEMAN ? We will monitor make adjustments as necessary 3. DM2 ? We will continue with her long-acting insulin but decrease the dose secondary to her likely poor p.o. intake ? Sign scale insulin ? Accu-Cheks ACHS ? We will hold her metformin given her COLEMAN ? We will monitor make adjustments as necessary 4. GERD ? Stable ? Continue with PPI DVT: Heparin Charges/Coding Visit Charges Inpatient E&M: 15742 Subs Hosp L2
[2023-10-28] MEDS: MorphINE SOLN 10 MG/0.5 ML PO.SYRINGE 5 MG PO (12:43)
--- NOTE | 2023-10-28 12:48 | CASEMGMT ---
Addendum entered by Jenniffer Fisher 10/28/23 18:35: SW introduced self and role to patient's family. Pt sleeping. SW informed them that hospice would be calling to make an appointment. Hospice had not been able to reach them. Sons had requested new advanced directives but changed their mind due to patient being a DNRCC. Pt's daughter had been main POA but . SW provided emotional support. Pt's two sons, [id number], therapy dog and fisher weir present. Son reports feeling more at peace with the situation and prepared to speak with hospice. Family denies any further SW needs at this time. Hospice met with pt/family and patient to discharge to [facility]. Jenniffer HEREDIA, [employer] Original Note: Social Work Physician requested a hospice consult. SW spoke with [facility] and provided information. Hospice reports they will contact patient's son to schedule an appointment and call this SW with appointment update when scheduled. SW to follow for needs. Jenniffer HEREDIA, [employer]
[2023-10-28 15:15] VITALS: BP 106/52; PULSE 67; RESP 24; TEMP 36.8; O2SAT 99
--- NOTE | 2023-10-28 15:16 | DS.PCM_ITS ---
Providers Date of Admission: 10/27/23 Primary Care Physician: Dr. Margaret Hwang MD Reason For Visit: SEPSIS Diagnosis Discharge Diagnosis (1) Acute kidney injury: Status: Acute Code(s): N17.9 - Acute kidney failure, unspecified Medications at Discharge Home Medications atorvastatin 40 mg tablet 40 mg PO QHS 07/12/15 metformin 1,000 mg tablet 1,000 mg PO BIDCM 07/12/15 metoprolol tartrate 50 mg tablet 50 mg PO BID 07/12/15 losartan 25 mg tablet 25 mg PO QDAY 06/25/18 nitroglycerin 0.4 mg sublingual tablet 0.4 mg sublingual Q5-15M PRN chest pain #25 tabs 06/25/18 dulaglutide 0.75 mg/0.5 mL subcutaneous pen injector (Trulicity) 3 mg subcut SA 06/24/21 baclofen 10 mg tablet 10 mg PO DAILY PRN muscle spasm 10/02/23 glipizide 10 mg tablet 10 mg PO BID 10/02/23 omeprazole 40 mg capsule,delayed release 40 mg PO DAILY 10/02/23 oxycodone-acetaminophen 5 mg-325 mg tablet 1 tab PO DAILY PRN pain 10/02/23 insulin glargine 100 unit/mL (3 mL) subcutaneous pen (Lantus Solostar U-100 Insulin) 24 unit subcut DAILY 10/19/23 [id number]-[id number] 24,000-76,000-120,000 unit capsule,delayed rel (Creon) 2 cap PO TID 10/27/23 ondansetron HCl 8 mg tablet 8 mg PO Q8H PRN nausea and vomiting 10/27/23 Hospital Course Operations None Procedures None Summary of Care Provided Minutes Spent on Discharge: 35 Hospital Course: Per HPI: IRA LEBRON, is a 73 F who presents to the hospital not feeling well. She states that she had presented to her oncologist office for her first day of chemotherapy however she looks so unwell that they sent her here to the hospital. She stated that if she had not been sent in by the oncologist that she would have come in on her own accord because she has not been feeling well for the last couple of days, and has been very fatigued. She does have chronic diarrhea since February as she has stage IV metastatic pancreatic cancer but she says that her diarrhea has actually improved over the last couple of days. In the ER she was found to have a leukocytosis of 49,000 chest x-ray was unremarkable as was UA. Multiple blood cultures were obtained as well as urine culture, she was started on vancomycin and Zosyn unfortunate this time we do not have a clear source of infection. Hospital Course: 1. Stage IV metastatic pancreatic cancer with COLEMAN and sepsis of unknown origin ? Unclear as to the source of infection at this time if there is an infection versus just advancing and progressive cancer ? She was just diagnosed with pancreatic cancer about a month ago and it was already in her liver and lungs ? We will continue with aggressive IV fluids as well as vancomycin and Zosyn IV ? Blood cultures and urine cultures are pending ? Renal function baseline is around 1 currently today at 2.11 ? She is not currently hypoxic to indicate any pulmonary source of her white count ? Given her diarrhea and her cancer and the fact that she is immunocompromised we will obtain C. difficile and enteric pathogen panel ? Will place on a regular diet and continue with her Creon 10/28/2023: I had a 20-minute advance care planning discussion with her and family and and they would like to proceed with primary hospice care they no longer want to pursue any type of chemotherapy or treatment for her pancreatic cancer. Her white count did improve and enteric pathogen panel and C. difficile panel were negative however they did not feel that in the long-term cultures and antibiotics would make a difference. She was started on Roxanol and hospice was consulted. Hospice was able to have a room at the inpatient unit and will transfer her there this afternoon at around 5 PM 2. Hypertension, hyperlipidemia, type 2 diabetes, GERD are all chronic medical conditions which complicate her care. She can resume any meds at the discretion of hospice Medical Records Data Medical Nutrition Assessment Dietitian: Malnutrition Criteria Met Start: 10/27/23 15:50 Freq: Status: Active Protocol: Document 10/27/23 15:50 GAYLE (Rec: 10/27/23 15:51 GAYLE [id number]) Nutrition Malnutrition Evidence of Malnutrition Exists Yes Malnutrition (moderate): Chronic Evidenced By Suboptimal Energy Intake ( Moderate),Physical Changes ( Moderate) Clinical Problem Chronic Disease or Condition Related Malnutrition Etiology related to physiological changes decreasing oral intakes Signs/Symptoms as evidenced by mild to moderate muscle and fat wasting per NFPA (temples, buccal, clavicle) as well as decreased oral intakes meeting <75% of estimated nutrient needs for longer than one month. Status Active Problem Recommendation Dietitian Recommendations/Changes Continue with Regular - General diet for liberalization. Client agreed to Ensure Clear w/ breakfast and Magic Cup w/ lunch and dinner to help increase oral intakes. Will continue to follow and modify nutrition interventions as needed. Weight / BMI Weight Weight: 135 lb 2.294 oz Body Mass Index (BMI) 30.2 ABG / Lab / Microbiology Data 10/28/23 05:46 10/28/23 05:46 Laboratory: Laboratory Results - last 24 hr 10/27/23 14:00: Phosphorus 2.1 L, Magnesium 1.3 L 10/27/23 17:01: POC Glucose 229 H 10/27/23 21:02: POC Glucose 201 H 10/28/23 05:46: WBC 40.9 H*, RBC 3.46 L, Hgb 8.9 L, Hct 29.1 L, MCV 84.1, MCH 25.7 L, MCHC 30.6 L, RDW Std Deviation 50.9 H, RDW Coeff of Tiana 18.0 H, Plt Count 253, MPV 10.6, Immature Gran % (Auto) 3.300 H, Neut % (Auto) 90.0 H, Lymph % (Auto) 2.4 L, [place] % (Auto) 3.7, Eos % (Auto) 0.1, Baso % (Auto) 0.5, Absolute Neuts (auto) 36.9 H, Absolute Lymphs (auto) 0.97, Nucleated RBC % 0, D ifferential Comment SCANNED, Diff Path Review March, Sodium 144, Potassium 2.9 L, Chloride 119 H, Carbon Dioxide 16.0 L, Anion Gap 9, BUN 48 H, Creatinine 2.00 H, Estim Creat Clear Calc 23.52, Est GFR (MDRD) Af Amer 31 L, Est GFR (MDRD) Non-Af 26 L, BUN/Creatinine Ratio 24.0 H, Glucose 130 H, Calcium 9.8, Phosphorus 2.5, Magnesium 2.3, Total Bilirubin 0.60, AST 232 H, ALT 95 H, Alkaline Phosphatase 541 H, Total Protein 5.7 L, Albumin 2.2 L, Globulin 3.5, Albumin/Globulin Ratio 0.6 L, Random Vancomycin 16.8 H 10/28/23 05:49: POC Glucose 136 H Microbiology: Microbiology 10/27/23 10:29 Urine Catheter - Catheter Urine Culture - Preliminary Culture exhibits no growth. 10/27/23 17:15 Stool Enteric Bacteriology - Final 10/27/23 17:15 Stool Clostridioides difficile (PCR) - Final 10/27/23 09:40 Nasal Secretion SARS-CoV-2 & FLU Antigen (Rapid) - Final Meaningful Use Info Meaningful Use Diagnoses (Choose all that apply): None applicable Discharge Plan Admission Admit Date/Time: 10/27/23 11:57 Attending Provider: Shon Talley Primary Care Provider: Margaret Hwang Discharge Orders/Prescriptions Prescriptions: No Action losartan 25 mg tablet 25 mg PO QDAY nitroglycerin 0.4 mg tablet, sublingual 0.4 mg SUBLINGUAL Q5-15M PRN (Reason: chest pain) Qty: 25 3RF Rx Instructions: until response; do not exceed 3 doses per episode Trulicity 0.75 mg/0.5 mL pen injector 3 mg SC SA atorvastatin 40 MG tablet 40 mg PO QHS metformin 1,000 MG tablet 1,000 mg PO BIDCM metoprolol tartrate 50 MG tablet 50 mg PO BID insulin glargine [Lantus Solostar U-100 Insulin] 100 unit/mL (3 mL) insulin pen 24 unit SUBCUT DAILY Creon 24,000-76,000 -120,000 unit capsule,delayed release(DR/EC) 2 cap PO TID ondansetron HCl 8 mg tablet 8 mg PO Q8H PRN (Reason: nausea and vomiting) baclofen 10 mg tablet 10 mg PO DAILY PRN (Reason: muscle spasm) glipizide 10 mg tablet 10 mg PO BID omeprazole 40 mg capsule,delayed release(DR/EC) 40 mg PO DAILY oxycodone-acetaminophen 5-325 mg tablet 1 tab PO DAILY PRN (Reason: pain) Referrals / Follow Up: Margaret Hwang MD [Primary Care Provider] - Disposition Discharge Orders: Discharge Patient (Routine); Ordered 10/28/23 Ordered By: Dr. Shon Talley Charges/Coding Visit Charges Inpatient E&M: 32288 Disch Hosp >30min Procedures Hospitalists Procedures: 06882 Advncd Care Plan 30 Min
[2023-10-28] MEDS: MorphINE SOLN 10 MG/0.5 ML PO.SYRINGE 5 MG SL ×2 (15:22→17:10)
[2023-10-28] MEDS: Menthol/Lanolin/Calamine/Znox 113 GM Tube 1 APPLIC TOPICAL (16:37)
[2023-10-31 13:36] LABS: Pathologist Review Reviewed
[2023-10-31 13:36] LABS: Pathologist Review Reviewed
== END 2023-10-28 17:07 | disposition hospice, inpatient (51) | DRG 872 ==
LOC: ED 11:02 → PCU 04-03 08:08
PROVIDERS: Admitting Provider Family Medicine; Emergency Provider Emergency Medicine; PCP Internal Medicine; Visit Provider Family Medicine
DX: N17.9 Acute kidney failure, unspecified (principal); C78.7 Secondary malignant neoplasm of liver and intrahepatic bile duct; C78.00 Secondary malignant neoplasm of unspecified lung; C25.9 Malignant neoplasm of pancreas, unspecified; D84.9 Immunodeficiency, unspecified; E11.9 Type 2 diabetes mellitus without complications; Z79.4 Long term (current) use of insulin; E86.0 Dehydration; I10 Essential (primary) hypertension; E78.00 Pure hypercholesterolemia, unspecified; I25.10 Atherosclerotic heart disease of native coronary artery without angina pectoris; K21.9 Gastro-esophageal reflux disease without esophagitis; K52.9 Noninfective gastroenteritis and colitis, unspecified; I25.2 Old myocardial infarction; Z95.5 Presence of coronary angioplasty implant and graft; Z79.84 Long term (current) use of oral hypoglycemic drugs; Z79.899 Other long term (current) drug therapy
CPT/HCPCS: 36415; 36591; 71045; 80053; 80202; 81001; 82962; 83605; 83690; 83735; 84100; 84484; 85025; 87040; 87086; 87428; 87493; 87506; 93005; 96361; 96365; 96366; 96368; 96372; 97802; 99221; 99285; P9612; A4216; G0378